=== PATIENT | male | born 1940 | race Caucasian/White ===

== ENCOUNTER → 2021-01-06 10:48 | Outpatient (BNVA) | payer MEDICARE, OTHER, SELFPAY | PROVIDERS: Visit Provider Urology | DX: N13.30 Unspecified hydronephrosis (principal); N40.1 Benign prostatic hyperplasia with lower urinary tract symptoms; C61 Malignant neoplasm of prostate | CPT/HCPCS: 51798; 81002; 99212 ==

== ENCOUNTER → 2022-01-07 10:07 | Outpatient (BNVA) | payer MEDICARE, OTHER, SELFPAY | PROVIDERS: PCP Family Medicine; Visit Provider Urology | DX: Z13.89 Encounter for screening for other disorder (principal) | CPT/HCPCS: Q3014 ==

== ENCOUNTER 2022-11-02 12:42 | Outpatient (REF) | payer MEDICARE, OTHER, SELFPAY ==
--- NOTE | ~2022-11-02 | US_ITS ---
EXAMINATION: US RETROPERITONEAL LIMITED (RENAL ONLY) CLINICAL INFORMATION: Unspecified hydronephrosis. COMPARISON: Nuclear medicine renal dynamic imaging study with Lasix 10/15/2019. TECHNIQUE: Real-time imaging of the kidneys. FINDINGS: RIGHT KIDNEY: 10.9 x 5.0 x 5.5 cm (SAG x AP x TRV). The kidney is normal in size, contour, and echogenicity. Renal cortical thickness is normal. No renal calculi or hydronephrosis. Multiple renal cysts. A midpole cyst measures 2.1 x 1.9 x 4.7 cm in lateral midpole cyst measures 3.1 x 2 0.7 to 2.0 cm and the medial midpole exophytic cyst measures 1.2 x 0.9 x 1.4 cm and is exophytic. 2 echogenic linear densities likely calcified vessels are noted. LEFT KIDNEY: 9.5 x 3.6 x 4.0 cm (SAG x AP x TRV). The kidney is normal in size, contour, and echogenicity. Renal cortical thickness is normal. No hydronephrosis. There are 2 anechoic cysts in the upper pole measuring 1.3 x 1.2 x 1.0 cm and lower pole exophytic cyst measures 1.5 x 0.9 x 1.0 cm. There is an echogenic nonobstructive midpole calculi measuring 0.6 x 0.5 x 0.5 cm. US/US renal BI IMPRESSION: Bilateral simple cysts no followup needed. There are exophytic cysts bilaterally. Nonobstructive echogenic calculi midpole left kidney.
== END 2022-11-02 12:43 | disposition home or self-care (01) ==
LOC: HO.US 12:42
PROVIDERS: PCP Family Medicine; Visit Provider Urology
DX: N13.30 Unspecified hydronephrosis (principal)
CPT/HCPCS: 76775

== ENCOUNTER → 2023-01-06 10:37 | Outpatient (BNVA) | payer MEDICARE, OTHER, SELFPAY | PROVIDERS: PCP Family Medicine; Visit Provider Urology | DX: N40.1 Benign prostatic hyperplasia with lower urinary tract symptoms (principal); C61 Malignant neoplasm of prostate | CPT/HCPCS: 99212 ==

== ENCOUNTER 2023-08-08 14:58 | Outpatient (AMB) | payer MEDICARE, OTHER, SELFPAY ==
--- NOTE | 2023-08-08 15:01 | A.OFFVIS_ITS ---
Intake Intake Visit Reasons: follow up Intake Note: Patient is present for Telephone follow up on recent imaging that has been done and sent to our office for Critical review Allergies No Known Allergies [No Known Allergies*] Allergy (Verified 01/06/23 11:14) HPI HPI Comments History of Present Illness Details Mr Ferrari is a very pleasant male. He is a patient of Dr Burnett. He is seen for the following urologic conditions. - nephrology Dr Awad. - hydronephrosis Telemedicine Evaluation 15 min Consultation DoxOsper Bassam Video attempted Denies history of hematuria New onset mass right renal pelvis on imaging recommend ureteroscopy with biopsy CT scan with 3 cm mass within right renal pelvis 08/18 7 hr spinal surgery Hydronephrosis/Hydroureter: Stable Creatinine. Hydronephrosis was diagnosed through routine imaging. - left side Anatomic imaging findings include 06/13 , US with mild , on the left, hydronephrosis - bilateral cyst. Functional imaging 07/14 , with diuretic renogram - L 25%:R 75% - delayed left 01/12 , with diuretic renogram - L 25%: R 75% - no delay 10/16 , with diuretic renogram - L 23% - no delay. Laboratory results 03/13 , Creatinine 1.3 10/15 , Creatinine 1.6 01/12 Creatinine 1.5 10/16 Cr 1.45. Discussion Continue with surveillance and intervention only for change in renal status. Prostate cancer: Low-grade brachytherapy 2009 PSA well controlled Minimal symptoms Good urination. Prostate cancer was diagnosed late [address] Muñoz.. Diagnosis was reached by needle biopsy, for elevated PSA, PSA at diagnosis 8.9, size at TRUS 45gm. The Nela grade is 3+3 = 6. TNM Classification of Malignant Tumours (TNM) T1c. The D'Ana (NCCN) risk category is Low Risk (PSA< 10, Gl < 7, T1c). Initial therapy included Primary treatment, Brachytherapy and bicalutamide , Additional treatment, Observation. Recent labs included a PSA (prostate-specific antigen) 03/11 -.2, 10/13 0.2, 04/12 0.2, 10/14 0.1, 04/14 0.1, 12/16 0.1, 12/17 <0.1, 12/18 <0.1 Therapeutic plan: Continue with surveillance [facility] Medical History Homocysteinemia Glaucoma HTN (hypertension) Hyperlipidemia Bladder spasm UPJ (ureteropelvic junction) obstruction Unspecified hydronephrosis Benign prostatic hyperplasia with lower urinary tract symptoms Prostate cancer Surgical History History of surgery Review of Systems Const All systems reviewed & are unremarkable except as noted in HPI and below Reports no additional complaints Resp Reports no additional complaints GI Reports no additional complaints Reports as per HPI Musc Reports no additional complaints Physical Exam Telemedicine evaluation Appropriate responses Regular breathing rate and rhythm HEENT Head: Yes normal to inspection Ears: hearing grossly normal bilaterally Eyes General: appearance normal, both eyes and all related structures Neck Neck: Yes normal visual inspection Chest Chest palpation & inspection: normal inspection of the chest Resp Effort & Inspection: normal respiratory effort and able to speak in complete sentences Assessment & Plan Assessment & Plan (1) Benign prostatic hyperplasia with lower urinary tract symptoms: Code(s): N40.1 - Benign prostatic hyperplasia with lower urinary tract symptoms (2) Renal pelvis transitional cell malignant neoplasm: Code(s): C65.9 - Malignant neoplasm of unspecified renal pelvis Plan Risks, benefits and alternatives to therapy were discussed. These include but are not limited to infection, bleeding, damage to local organs and tissues, need for further interventions. Anesthetic risks regarding cardiac arrhythmia, blood clots, and potential mortality were discussed. The patient understands the typical recovery time and the outpatient nature of the procedure. After consideration of these risks the patient gives full informed consent and they wish to move ahead with the procedure. Cystoscopy, bilateral retrograde, right ureteroscopy with biopsy Patient Instructions: Imaging studies, laboratory and physical exam results were discussed and reviewed in detail. No major barriers to patient understanding were identified. An opportunity to ask questions regarding the treatment plan was provided. All questions were answered. The patient expressed understanding and agreement with the above treatment plan. The patient is aware they should contact our office by phone for worsening of their current condition or the appearance of new urologic symptoms. Compliance is encouraged with any medications and followup testing that is ordered. It is a privilege to participate in the urologic care of your patient. If you have any questions or concerns regarding treatment for the above conditions, or other urologic issues, please do not hesitate to contact me. The office telephone contact is [phone]. This note is constructed using voice recognition software. While every effort has been made to ensure accuracy emergency room specialist errors may have been included. Yours sincerely, Dr Art Ruelas MD, [facility] - Urology Providers of Expert, Compassionate Care for the Genitourinary System Telehealth Telehealth Location of provider rendering services: practice address Location of patient: address on file Patient Identification confirmed using: Name, : Yes Telehealth method: video Patient verbally consented to treatment: Yes Patient verbally consented to billing insurance company: Yes Patient informed of any privacy concerns related to visit: Yes Coding Level of Care Code Tele Est Pt Level 4 (59581) Diagnoses Benign prostatic hyperplasia with lower urinary tract symptoms N40.1 Renal pelvis transitional cell malignant neoplasm C65.9
== END 2023-08-08 15:18 | disposition home or self-care (01) ==
LOC: HO.HUSH 14:58
PROVIDERS: PCP Family Medicine; Visit Provider Urology
DX: N40.1 Benign prostatic hyperplasia with lower urinary tract symptoms (principal); C65.9 Malignant neoplasm of unspecified renal pelvis
CPT/HCPCS: 99214

== ENCOUNTER → 2023-08-08 14:58 | Outpatient (BNVA) | payer MEDICARE, OTHER, SELFPAY | PROVIDERS: PCP Family Medicine; Visit Provider Urology ==

== ENCOUNTER 2023-08-14 10:11 | Day surgery (SDC) | payer MEDICARE, OTHER, SELFPAY ==
--- NOTE | 2023-08-11 10:30 | HO.ANESPROP2 ---
Documented by User: Nanci Avila NP 08/11/23 10:53 HPI - Anesthesia Eval Consult details Narrative: 82yo M for Bilateral Cystoscopy retrograde, Right Cystoscopy Ureteroscopy with renal biopsy Cardiac optimized Follows [place] [facility] for palpitations (holter 2021 showed frequent PACs with multiple runs of SVT, likely atrial tachy), htn, edema, hld. Last office visit 04/2023. All conditions stable without change in tx and f/u in 1 year Follows renal for CKD [facility]. Last office visit 06/2023. Stable >10years. 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 PMFSH Active Problems Active Problems: All Active Problems (Updated 08/08/23 @ 15:15 by Art Ruelas MD) Renal pelvis transitional cell malignant neoplasm (Acute) Unspecified hydronephrosis (Acute) Benign prostatic hyperplasia with lower urinary tract symptoms (Acute) Prostate cancer (Acute) Past Medical History Medical History SVT (supraventricular tachycardia) Homocysteinemia Glaucoma HTN (hypertension) Hyperlipidemia Bladder spasm UPJ (ureteropelvic junction) obstruction Unspecified hydronephrosis Benign prostatic hyperplasia with lower urinary tract symptoms Prostate cancer Surgical History Surgical History History of surgery Social History Social History Patient Tobacco Use Status: Never used Tobacco Are you DNR?: No Advance Directives: No Advance Directives Information Provided: Yes Nutrition Risks: No Nutritional Risk Meds Allergies Allergy/AdvReac Type Severity Reaction Status Date / Time No Known Allergies Allergy Verified 08/14/23 11:02 [No Known Allergies*] Home Medications Medication Instructions Recorded Confirmed Last Taken Type bisoprolol fumarate 5 mg tablet 7.5 mg PO DAILY 01/06/21 08/14/23 08/14/23 History ezetimibe 10 mg-simvastatin 80 mg tab PO 01/06/21 Unknown History tablet felodipine 2.5 mg tablet,extended 2.5 mg PO BEDTIME 01/06/21 08/14/23 Unknown History release 24 hr furosemide 20 mg tablet 20 mg PO DAILY 01/06/21 08/14/23 Unknown History levothyroxine 50 mcg tablet 50 mcg PO DAILY 01/06/21 08/14/23 08/14/23 History potassium chloride 20 mEq 20 meq PO DAILY 01/06/21 08/14/23 Unknown History tablet,extended release(part/cryst) tamsulosin 0.4 mg capsule 0.4 mg PO DAILY 01/06/21 08/14/23 Unknown History trazodone 100 mg tablet 100 mg PO BEDTIME 01/06/21 08/14/23 Unknown History Exam Pertinent Lab Results Pertinent Lab Results: Labs from outside facility CBC 06/20/23 WNL BMP 07/31/23 Lytes WNL, BUN/Creat elevated at 44/1.5 Narrative Narrative: ECHO 09/2021 -LV systolic funtion nml. EF 61% -RV systolic function is normal -LA mildly dilated -RA mildly dilated -Mitral leaflets are moderately thickened. Mild MR. -No previous for comparison. Assessment and Plan Assessment Anesthesia Assessment: Chart Reviewed Documented by User: Chandra Horta MD 08/14/23 15:44 [facility] Past Medical History Medical History SVT (supraventricular tachycardia) Homocysteinemia Glaucoma HTN (hypertension) Hyperlipidemia Bladder spasm UPJ (ureteropelvic junction) obstruction Unspecified hydronephrosis Benign prostatic hyperplasia with lower urinary tract symptoms Prostate cancer Family History Family history of problems with anesthesia: No Surgical History Surgical History History of surgery History of Problems with Anesthesia: No Social History Social History Patient Tobacco Use Status: Never used Tobacco Are you DNR?: No Advance Directives: No Advance Directives Information Provided: Yes Nutrition Risks: No Nutritional Risk Meds Allergies Allergy/AdvReac Type Severity Reaction Status Date / Time No Known Allergies Allergy Verified 08/14/23 11:02 [No Known Allergies*] Home Medications Medication Instructions Recorded Confirmed Last Taken Type bisoprolol fumarate 5 mg tablet 7.5 mg PO DAILY 01/06/21 08/14/23 08/14/23 History ezetimibe 10 mg-simvastatin 80 mg tab PO 01/06/21 Unknown History tablet felodipine 2.5 mg tablet,extended 2.5 mg PO BEDTIME 01/06/21 08/14/23 Unknown History release 24 hr furosemide 20 mg tablet 20 mg PO DAILY 01/06/21 08/14/23 Unknown History levothyroxine 50 mcg tablet 50 mcg PO DAILY 01/06/21 08/14/23 08/14/23 History potassium chloride 20 mEq 20 meq PO DAILY 01/06/21 08/14/23 Unknown History tablet,extended release(part/cryst) tamsulosin 0.4 mg capsule 0.4 mg PO DAILY 01/06/21 08/14/23 Unknown History trazodone 100 mg tablet 100 mg PO BEDTIME 01/06/21 08/14/23 Unknown History Exam Airway Mallampati Class: II (Hoarse voice.) TM Dist: <=3cm Neck ROM: Full Loose/Missing/Broken Teeth: No Heart: ok Lungs: ok Assessment and Plan Assessment Anesthesia Assessment: Anesthesia Plan Discussed Final Anesthetic Review Family History of Problems with Anesthesia: No History of Problems with Anesthesia: No NPO: Yes ASA Class: III Final Preanesthetic Review: No Changes in Pt Med Stat, Meds/Allgs Chart Reviewed, Consent Obtained/Reviewed and Anes Risks/Benef Reviewed Patient Risk: Intermediate Procedure Risk: Low Anesthetic Plan Anesthetic Plan: MAC: and Agree w/ Assess. and Plan Disposition: Standard PACU
--- NOTE | ~2023-08-14 | FL_ITS ---
EXAMINATION: XR FLUOROSCOPY WITH IMAGES CLINICAL INFORMATION: Cystoscopy, retrograde and ureteroscopy. Right-sided cystoscopy. COMPARISON: None available. TECHNIQUE: Fluoroscopy Supervised By: Dr. Art Ruelas. Fluoroscopy Time: 58.8 seconds. Cumulative Dose: 20.73 mGy. DAP: Not available on machine. Images: 4. FINDINGS: Fluoroscopy guidance for right retrograde exam and stent placement. FL/FL guidance in OR IMPRESSION: Fluoroscopy guidance for right retrograde exam and stent placement.
[2023-08-14 10:36] VITALS: BMI 26.1
[2023-08-14 11:01] VITALS: BP 141/62; PULSE 58; RESP 18; TEMP 36.6; O2SAT 97
[2023-08-14] MEDS: Lactated Ringers 1,000 ML 50 ML IVCONT (12:11)
--- NOTE | 2023-08-14 14:45 | PC.NURSE ---
Report given to Triston Weeks RN - she is aware of three spots on preop record that need to be signed.
--- NOTE | 2023-08-14 15:40 | MHC.SHP ---
Pre-Procedural Eval Section A Date of Service: 08/14/23 The patient is an INPATIENT: No Changes since office visit: No Cold of Flu in the past 2 weeks, No New Medical Problems, No Changes in Medication and No Patient answered all questions The History & Physical has been completed within 30 days and I have reviewed it.: Yes Section B Chief Complaint: Malignant neoplasm of unspecified renal pelvis Details of Present Illness: right renal pelvic mass Allergies: Allergies Allergy/AdvReac Type Severity Reaction Status Date / Time No Known Allergies Allergy Verified 08/14/23 11:02 [No Known Allergies*] Review of Systems Sugical H&P ROS: Negative: Constitution, Cardiovascular, Respiratory, Neurological, Psychiatric, Hem-Onc, Allergic/Immunologic, Gastrointestinal, Genitourinary, Musculoskeletal, Integumentary, Endocrine and Eyes/Ears/Nose/Throat Exam Surgical H&P Exam: Normal: HEENT, Normal: Heart, Normal: Lungs, Normal: Extremities, Normal: Abdomen, Normal: Skin and Normal: Neurological Plan Diagnosis/Plan: Unchanged (cysto, right retrorgades, ureteroscopy, biopsy) I have reviewed the history and physical and performed a pertinent physical examination on my patient. No changes have occurred unless specified. Time Spent With Patient Time: Total time managing care of this patient today ____ minutes.
[2023-08-14 16:32] VITALS: BP 109/49; PULSE 54; RESP 18; TEMP 36.8; O2SAT 96
[2023-08-14 16:37] VITALS: BP 116/39; PULSE 51; RESP 16; O2SAT 99
[2023-08-14 16:42] VITALS: BP 143/64; PULSE 52; RESP 16; O2SAT 99
[2023-08-14 16:47] VITALS: BP 148/61; PULSE 49; RESP 16; TEMP 36.8; O2SAT 99
[2023-08-14 17:02] VITALS: BP 156/67; PULSE 52; RESP 18; TEMP 36.6; O2SAT 99
--- NOTE | 2023-08-14 18:12 | W.PM.OPN ---
Operative Note Operative Note Date of Service: 08/14/23 Narrative: PreOperative Diagnosis: Imaging question of right renal pelvic mass Post Operative Diagnosis: No mass Found intrarenal Procedure: - cystoscopy, right retrograde - right dilatation of ureteric orifice under fluoroscopy - right ureteroscopy - right stent placement Surgeon: Dr Art Ruelas Anesthesia: General Indications for procedure: Imaging obtained from primary care. Question of right renal pelvis mass. Patient denies any history of hematuria. Procedure: After informed consent was verified patient was brought to the operating placed in supine position. Anesthesia was administered per protocol. Patient was placed in modified dorsal lithotomy position and prepped and draped in a sterile fashion. Safety pause time-out and side of surgery confirmed. Antibiotics confirmed. 22 Swedish cystoscope was inserted per urethra. Bladder was normal in its entirety. Both ureteric orifices were in normal position. The right ureteric orifice was cannulated and a retrograde examination was performed. No filling defects seen within right renal pelvis. Prostate seen with radioactive seeds A Sensor guidewire was placed up to the level of the renal pelvis under fluoroscopy. The rigid cystoscope was removed and the Jermaine dilator was used under fluoroscopy to dilate the ureteric orifice. The digital flexible ureteral scope was placed over the wire into the renal pelvis. The renal pelvis and calyces were examined in their entirety. No evidence found of filling defect. No evidence found of renal pelvic mass. At the completion of the stone procedure a Sensor wire was placed back into the renal pelvis. The flexible ureteroscope was slowly withdrawn. There was seen to be some grade 2 mucosal damage from the initial dilatation. A decision was made to place stent. The rigid cystoscope was backloaded over the wire and advanced into the bladder. A 6 Swedish by 26 cm double-J stent was placed into the renal pelvis and bladder under a combination of fluoroscopy and direct visualization. The bladder was emptied. The patient tolerated the procedure well and was extubated in the operating room, and transferred in stable condition to the recovery area. Pathology: No mass seen Drains: Right-sided stent
== END 2023-08-14 17:05 | disposition home or self-care (01) ==
PROVIDERS: PCP Family Medicine; Visit Provider Urology
PROC: (CPT 52351; principal; 2023-08-14 12:40)
PROC: 0TJB8ZZ Inspection of Bladder, Via Natural or Artificial Opening Endoscopic (ICD-10-PCS; CPT 52000; 2023-08-14 12:40)
DX: N40.1 Benign prostatic hyperplasia with lower urinary tract symptoms (principal); R97.20 Elevated prostate specific antigen [PSA]; R79.83 Abnormal findings of blood amino-acid level; I10 Essential (primary) hypertension; N13.30 Unspecified hydronephrosis; C61 Malignant neoplasm of prostate; N32.89 Other specified disorders of bladder; H40.9 Unspecified glaucoma; E78.5 Hyperlipidemia, unspecified
CPT/HCPCS: 52351; 52332; C2617; J1956; J2704; J3010; Q9967

== ENCOUNTER → 2023-08-14 10:11 | Outpatient (BNV) | payer MEDICARE, OTHER, SELFPAY | PROVIDERS: PCP Family Medicine; Visit Provider Urology | DX: N28.89 Other specified disorders of kidney and ureter (principal) | CPT/HCPCS: 52332; 74420 ==

== ENCOUNTER 2023-08-31 12:44 | Outpatient (AMB) | payer MEDICARE, OTHER, SELFPAY ==
--- NOTE | 2023-08-31 13:05 | A.OFFVIS_ITS ---
Intake Intake Visit Reasons: Stent removal/Renal bx results Intake Note: Patient presents today for stent removal/renal biopsy results Urology Medications: tamsulosin Blood Thinner: none Marketing Analytics Lead Required: No Accompanied by: Self / Same As Patient Allergies No Known Allergies [No Known Allergies*] Allergy (Verified 08/31/23 20:08) Medication List - Last Reconciled 08/31/23 by Ruby Tejada [facility]- bisoprolol fumarate 7.5 mg PO DAILY ezetimibe-simvastatin 10-80 mg tabs PO felodipine ER 2.5 mg PO BEDTIME furosemide 20 mg PO DAILY levothyroxine 50 mcg PO DAILY potassium chloride ER 20 mEq PO DAILY tamsulosin 0.4 mg PO DAILY trazodone 100 mg PO BEDTIME HPI HPI Comments History of Present Illness Details Dontae is a very pleasant 82-year-old male patient of Dr. Burnett. He has a past medical history of SVT, glaucoma, hypertension, hyperlipidemia, BPH with lower urinary tract symptoms and prostate cancer. He presents to the office today for a cystoscopy with right-sided stent removal. Of note, patient underwent surgical procedure with Dr. Ruelas on 08/14/2023 for question of right renal pelvic mass on imaging with PCP. Cystoscopy right retrograde right dilatation of ureteric orifice under fluoroscopy, right ureteroscopy, and right stent placement was performed and no mass was seen. These results were reviewed with the patient today. In office cystoscopy was performed in the right-sided ureteral stent was removed without difficulty. Discussed near future follow-up imaging for further assessment evaluation. He otherwise denies any bothersome urinary issues or concerns. He denies urinary urgency, urinary frequency, incontinence, nocturia, hematuria, dysuria, foul sme for Nephrology. lling urine, changes to urinary stream, flank pain, fever, and or chills. He is happy with his current voiding paramete on flomax. He follows with Dr. Awad REVIEW OF CHART: CT scan with 3 cm mass within right renal pelvis 08/18 7 hr spinal surgery Hydronephrosis/Hydroureter: Stable Creatinine. Hydronephrosis was diagnosed through routine imaging. - left side Anatomic imaging findings include 06/13 , US with mild , on the left, hydronephrosis - bilateral cyst. Functional imaging 07/14 , with diuretic renogram - L 25%:R 75% - delayed left 01/12 , with diuretic renogram - L 25%: R 75% - no delay 10/16 , with diuretic renogram - L 23% - no delay. Laboratory results 03/13 , Creatinine 1.3 10/15 , Creatinine 1.6 01/12 Creatinine 1.5 10/16 Cr 1.45. Discussion Continue with surveillance and intervention only for change in renal status. Prostate cancer: Low-grade brachytherapy 2009 PSA well controlled Minimal symptoms Good urination. Prostate cancer was diagnosed late [address] Muñoz.. Diagnosis was reached by needle biopsy, for elevated PSA, PSA at diagnosis 8.9, size at TRUS 45gm. The Nela grade is 3+3 = 6. TNM Classification of Malignant Tumours (TNM) T1c. The D'Ana (NCCN) risk category is Low Risk (PSA< 10, Gl < 7, T1c). Initial therapy included Primary treatment, Brachytherapy and bicalutamide , Additional treatment, Observation. Recent labs included a PSA (prostate-specific antigen) 03/11 -.2, 10/13 0.2, 04/12 0.2, 10/14 0.1, 04/14 0.1, 12/16 0.1, 12/17 <0.1, 12/18 <0.1 Therapeutic plan: Continue with surveillance PSA and imaging for monitoring [facility] Medical History SVT (supraventricular tachycardia) Homocysteinemia Glaucoma HTN (hypertension) Hyperlipidemia Bladder spasm UPJ (ureteropelvic junction) obstruction Unspecified hydronephrosis Benign prostatic hyperplasia with lower urinary tract symptoms Prostate cancer Surgical History History of surgery Social History Patient Tobacco Use Status: Never used Tobacco Review of Systems Const Reports as per HPI Eyes Reports no additional complaints ENT Reports no additional complaints Card Reports as per HPI Resp Reports no additional complaints GI Reports as per HPI Reports as per HPI Musc Reports no additional complaints Neuro Reports no additional complaints Psych Reports no additional complaints Endo Reports no additional complaints Gustabo/Lymph Reports no additional complaints Aller/Immun Reports no additional complaints Physical Exam Const General: cooperative, healthy appearing, comfortable, no acute distress, well developed, alert and awake Orientation/consciousness: patient oriented x3 Limitations: no limitations HEENT Head: Yes normal to inspection, Yes normocephalic and Yes atraumatic Ears: hearing grossly normal bilaterally Eyes General: appearance normal, both eyes and all related structures Neck Neck: Yes normal visual inspection and Yes trachea midline Chest Chest palpation & inspection: normal inspection of the chest Resp Effort & Inspection: normal respiratory effort and able to speak in complete sentences Cardio Rate: regular rate GI Inspection: Yes normal to inspection General: Yes no CVA tenderness Male General Exam: Yes normal external exam Penis: normal penis and circumcised Meatus: meatus normal Back/Spine/Pelvis Back: no CVA tenderness Skin General skin exam: no rashes or lesions noted Neuro General: patient oriented x3 Extrem General: Yes normal to inspection Psych Appearance: grossly normal and well kempt Mental Status: mental status grossly normal Speech and movement: Normal speech and movement present and Clear speech present Affect: normal affect Attitude: cooperative Thought process: Normal thought process present Thought content: Normal thought content present Office Procedures Cystoscopy Consent Discussed risk and benefit or proposed procedure with the patient. Information consent for procedure given to the patient. Discussed technical aspects, risks, benefits and alternatives in full. Addressed all of the patient's questions and concerns regarding the procedure. The patient demonstrated knowledge and understanding. They wish to proceed with this procedure. Preparation The patient was prepped in the usual manner. A airline transport pilot was present and in the room. Genitalia was prepped with betadine solution in a sterile manner. Lidocaine Jelly 2% was placed into the urethra and 16Fr flexible Olympus cystoscope was inserted into the meatus after adequate lubrication. Procedure A well lubricated 16 Citizen [place] cystoscope was placed No abnormality noted of urethra during placement Indwelling stent seen within bladder emerging from right ureteric orifices The stent was grasped with a 3 prong grasper and removed without difficulty The patient tolerated procedure well. [id number] with stent removal DISPOSABLE SCOPE URO-G FLEXIBLE SCOPE Procedure code (CPT) selection complete Office Meds lidocaine HCl 2 % mucosal jelly in applicator Performing Provider: Art Ruelas MD [facility] Administered by: Destiny Berger RN on 08/31/23 13:39 Dose Route Admin Location Dispensed Lot Number Expiration Date [facility] Sheet [employer] Supervisor 10 mL intra-urethral 10 mL nitrofurantoin monohydrate/macrocrystals 100 mg capsule Performing Provider: Art Ruelas MD Performing Location: [facility] Administered by: Destiny Berger RN on 08/31/23 13:39 Dose Route Admin Location Dispensed Lot Number Expiration Date NDC [employer]visor 100 mg PO 1 cap naproxen 500 mg tablet Performing Provider: Art Ruelas MD Performing Location: [facility] Administered by: Destiny Berger RN on 08/31/23 13:39 Dose Route Admin Location Dispensed Lot Number Expiration Date NDC [employer] 500 mg PO 1 tab Results AMB Urinalysis, Automated UA Leukoctes 70 Chemo/uL Last Edit by 4Techyce Nini on 08/31/23 13:40 UA Nitrite Negative Last Edit by Brandyce Bre on 08/31/23 13:40 UA Urobilinogen 0.2 mg/dL Last Edit by Brandyce Bre on 08/31/23 13:40 UA Protein 100 mg/dL Last Edit by BrandATRP Solutionse Nini on 08/31/23 13:40 UA pH 7.0 Last Edit by Brandyce Bre on 08/31/23 13:40 UA Blood 200 Andrea/uL Last Edit by Brandyce Bress on 08/31/23 13:40 UA Specific Sargeant 1.010 Last Edit by Brandyce Bress on 08/31/23 13:40 UA Ketone Negative Last Edit by Brandyce Bre on 08/31/23 13:40 UA Bilirubin 0 mg/dL Last Edit by Brandyce Bre on 08/31/23 13:40 UA Glucose 0 mg/dL Last Edit by Brandyce Bress on 08/31/23 13:40 Results Reviewed Results Reviewed: Laboratory Last Values Urine pH (Auto) 7.0 08/31/23 13:08 Specific Sargeant (Auto) 1.010 08/31/23 13:08 Urine Protein (Auto) 100 mg/dL 08/31/23 13:08 Glucose (UA)(Auto) 0 mg/dL 08/31/23 13:08 Urine Ketones (Auto) Negative 08/31/23 13:08 Urine Blood (Auto) 200 Andrea/uL 08/31/23 13:08 Urine Nitrite (Auto) Negative 08/31/23 13:08 Urine Bilirubin (Auto) 0 mg/dL 08/31/23 13:08 Urine Urobilinogen (Auto) 0.2 mg/dL 08/31/23 13:08 Leukocyte Esterase (Auto) 70 Chemo/uL 08/31/23 13:08 Assessment & Plan Assessment & Plan (1) Unspecified hydronephrosis: Code(s): N13.30 - Unspecified hydronephrosis (2) Benign prostatic hyperplasia with lower urinary tract symptoms: Code(s): N40.1 - Benign prostatic hyperplasia with lower urinary tract symptoms (3) Prostate cancer: Code(s): C61 - Malignant neoplasm of prostate (4) Malignant neoplasm of unspecified renal pelvis: Code(s): C65.9 - Malignant neoplasm of unspecified renal pelvis Plan In office urinalysis results reviewed with the patient today; will send for urine cytology. In office cystoscopy was performed and right ureteral stent was removed without difficulty; as noted above. Discussed findings from surgical procedure at length. Patient denies any bothersome urinary issues or concerns at this time. Patient reports be happy with current voiding parameters on 0.4 mg of Flomax will continue. Discussed continuing with scheduled follow-up with Dr. Ruelas in December with PSA and MRI to be completed prior. Will obtain MRI in 3-4 months for further assessment evaluation. Discussed having PSA drawn prior to appointment. Keep scheduled follow-up with Dr. Ruelas as discussed with imaging and labs to be completed prior; or sooner with any issues, concerns, and or questions. Orders: Orders MR abdomen wo/w con 3 Months C65.9 - Malignant neoplasm of unspecified renal pelvis MAIKEL Gates AMB Urinalysis Automated Today Z13.9 - Encounter for screening, unspecified CHAVA Gates-BC AMB Cystoscopy Today N13.30 - Unspecified hydronephrosis Art Ruelas MD Urine Cytology Today C61 - Malignant neoplasm of prostate MAIKEL Gates Patient Instructions: The patient had an opportunity to ask questions regarding the treatment plan. All questions were answered. Physical exam, labs, and imaging were discussed and reviewed in detail. As well as risks, benefits, and discussion of treatment choices. No major barriers to understanding were identified. The patient expressed understanding and agreement with the above treatment plan. The patient was made aware they should contact our office by phone for worsening of their current condition, the appearance of new symptoms, or with any questions or concerns. Compliance is encouraged with any medications and follow up testing that is ordered. It is a privilege to be allowed the opportunity to participate in? your urological care.? Again, if you have any questions or concerns If you have any questions or concerns please do not hesitate to contact me. The office is [phone]. This note is constructed using voice recognition software. While every effort has been made to ensure accuracy cupola repairer errors may have been included. Yours sincerely, HIPOLITO Gates Coding Level of Care Code Est Pt Level 3 (11299) Diagnoses Unspecified hydronephrosis N13.30 Benign prostatic hyperplasia with lower urinary tract symptoms N40.1 Prostate cancer C61 Malignant neoplasm of unspecified renal pelvis C65.9 CPT Codes Cystoscopy - CPT: 86358-[id number] with stent removal ([id number])
== END 2023-08-31 14:05 | disposition home or self-care (01) ==
PROVIDERS: PCP Family Medicine; Visit Provider Urology
DX: N13.30 Unspecified hydronephrosis (principal); Z13.9 Encounter for screening, unspecified; Z96.0 Presence of urogenital implants
CPT/HCPCS: 52310; 99213

== ENCOUNTER 2023-08-31 12:44 | Outpatient (REF) | payer MEDICARE, OTHER, SELFPAY | END 2023-08-31 12:45 | disposition home or self-care (01) | LOC: HO.LNP 12:44 | PROVIDERS: PCP Family Medicine; Visit Provider Urology | DX: C61 Malignant neoplasm of prostate (principal); C65.9 Malignant neoplasm of unspecified renal pelvis; N40.1 Benign prostatic hyperplasia with lower urinary tract symptoms; N13.8 Other obstructive and reflux uropathy; N13.30 Unspecified hydronephrosis; Z46.6 Encounter for fitting and adjustment of urinary device | CPT/HCPCS: 52310; 81003; 88112; 99212 ==

== ENCOUNTER 2023-11-30 10:11 | Outpatient (REF) | payer MEDICARE, OTHER, SELFPAY ==
--- NOTE | ~2023-11-30 | MR_ITS ---
EXAMINATION: MR ABDOMEN WITHOUT AND WITH CONTRAST CLINICAL INFORMATION: Renal lesion. COMPARISON: Renal ultrasound 11/02/2022 TECHNIQUE: MR abdomen was performed without and with use of 6 mL intravenous Gadavist gadolinium contrast. Postcontrast images are performed in multiphase dynamic sequences. Imaging was performed in 3 planes. FINDINGS: LUNG BASES: The visualized lung bases are unremarkable. LIVER, GALLBLADDER, AND BILIARY TREE: Hepatic steatosis. No focal hepatic lesion or biliary ductal dilatation is present. The gallbladder is unremarkable with no evidence of gallbladder wall thickening, or obvious pericholecystic inflammatory changes. PANCREAS: Multiple T2 hyperintense lesions are seen distributed throughout the pancreas measuring up to 9 mm. No dilatation of the main pancreatic duct. No peripancreatic stranding. No abnormal enhancement. SPLEEN: Not enlarged. ADRENAL GLANDS: No adrenal mass. KIDNEYS AND URETERS: The left kidney is asymmetrically smaller with anterior cortical scarring. There is urothelial thickening of the left renal pelvis/proximal ureter. There is a solid enhancing mass expanding the right renal pelvis measuring approximately 4.0 x 2.7 x 3.1 cm. No definite vascular invasion. No right hydronephrosis. Bilateral renal cysts for which no further imaging follow-up is needed. GASTROINTESTINAL TRACT: Imaged loops of small and large bowel are not obstructed. Diverticular disease of the colon. ABDOMINAL WALL: No significant hernia is appreciated. LYMPH NODES: Few prominent retroperitoneal lymph nodes. Left para-aortic lymph node measures 1.0 x 1.5 cm. VASCULAR: Normal caliber abdominal aorta. MR/MR abdomen wo/w con IMPRESSION: Solid enhancing mass expanding the right renal pelvis measuring approximately 4.0 x 2.7 x 3.1 cm. No definite vascular invasion. No right hydronephrosis. Enlarged retroperitoneal lymph nodes.
[2023-11-30] MEDS: gadobutroL 7.5 ML VIAL IVPUSH (12:32)
== END 2023-11-30 10:12 | disposition home or self-care (01) ==
LOC: HO.MRI 10:11
PROVIDERS: PCP Family Medicine; Visit Provider Nurse Practitioner Family
DX: C65.9 Malignant neoplasm of unspecified renal pelvis (principal)
CPT/HCPCS: 74183; A9585

== ENCOUNTER 2024-01-09 10:21 | Outpatient (AMB) | payer MEDICARE, OTHER, SELFPAY ==
--- NOTE | 2024-01-09 10:22 | MHC.OFFVIS ---
Intake Visit Reasons: 1y psa(set) Intake Note: Patient is Present for Telephone Follow Up For Urology Med: Tamsulosin Antibiotic Allergy:None Blood Thinner: None Allergies No Known Allergies [No Known Allergies*] Allergy (Verified 01/09/24 10:22) HPI Comments Details: Dontae is a very pleasant male. He is a patient of Dr. Burnett. He is seen for the following urologic conditions - lower urinary tract symptoms - prostate cancer - right renal pelvic mass Telemedicine Evaluation 15 min Consultation Vendalize Bassam Video attempted Continued evaluation of right renal pelvic mass MRI shows increase in size of mass Underwent ureteroscopy in July 2023 with negative findings Cytology from August is negative Has never seen any blood in the urine Would suggest CT urogram which is more specific for mass in the right renal pelvis versus MRI Given prior negative ureteroscopy will proceed with CT-guided biopsy - uncommon tumors must be considered such as smooth muscle within the renal pelvis REVIEW OF CHART: 01/18 MRI 4.5 cm mass within the right renal pelvis 09/20 CT scan with 3 cm mass within right renal pelvis 08/18 7 hr spinal surgery Right renal pelvis mass Present on imaging Negative ureteroscopy Negative cytology, no blood in urine Hydronephrosis/Hydroureter: Stable Creatinine. Hydronephrosis was diagnosed through routine imaging. - left side Anatomic imaging findings include 06/13 , US with mild , on the left, hydronephrosis - bilateral cyst. Functional imaging 07/14 , with diuretic renogram - L 25%:R 75% - delayed left 01/12 , with diuretic renogram - L 25%: R 75% - no delay 10/16 , with diuretic renogram - L 23% - no delay. Laboratory results 03/13 , Creatinine 1.3 10/15 , Creatinine 1.6 01/12 Creatinine 1.5 10/16 Cr 1.45. Discussion Continue with surveillance and intervention only for change in renal status. Prostate cancer: Low-grade brachytherapy 2009 PSA well controlled Minimal symptoms Good urination. Prostate cancer was diagnosed late [address] Muñoz.. Diagnosis was reached by needle biopsy, for elevated PSA, PSA at diagnosis 8.9, size at TRUS 45gm. The Nela grade is 3+3 = 6. TNM Classification of Malignant Tumours (TNM) T1c. The D'Ana (NCCN) risk category is Low Risk (PSA< 10, Gl < 7, T1c). Initial therapy included Primary treatment, Brachytherapy and bicalutamide , Additional treatment, Observation. Recent labs included a PSA (prostate-specific antigen) 03/11 -.2, 10/13 0.2, 04/12 0.2, 10/14 0.1, 04/14 0.1, 12/16 0.1, 12/17 <0.1, 12/18 <0.1, 12/19 <0.1 Therapeutic plan: Continue with surveillance PSA and imaging for monitoring [facility] Medical History SVT (supraventricular tachycardia) Homocysteinemia Glaucoma HTN (hypertension) Hyperlipidemia Bladder spasm UPJ (ureteropelvic junction) obstruction Unspecified hydronephrosis Benign prostatic hyperplasia with lower urinary tract symptoms Prostate cancer Surgical History History of surgery Social History Patient Tobacco Use Status: Never used Tobacco Review of Systems Const All systems reviewed & are unremarkable except as noted in HPI and below Reports no additional complaints Resp Reports no additional complaints GI Reports no additional complaints Reports as per HPI Musc Reports no additional complaints Physical Exam Telemedicine evaluation Appropriate responses Regular breathing rate and rhythm HEENT Head: Yes normal to inspection Ears: hearing grossly normal bilaterally Eyes General: appearance normal, both eyes and all related structures Neck Neck: Yes normal visual inspection Chest Chest palpation & inspection: normal inspection of the chest Resp Effort & Inspection: normal respiratory effort and able to speak in complete sentences Telehealth Telehealth Location of provider rendering services: practice address Location of patient: address on file Patient Identification confirmed using: Name, : Yes Telehealth method: video Patient verbally consented to treatment: Yes Patient verbally consented to billing insurance company: Yes Patient informed of any privacy concerns related to visit: Yes Assessment & Plan Assessment & Plan (1) Benign prostatic hyperplasia with lower urinary tract symptoms: Code(s): N40.1 - Benign prostatic hyperplasia with lower urinary tract symptoms Category: Medical (2) Prostate cancer: Code(s): C61 - Malignant neoplasm of prostate Category: Medical (3) Malignant neoplasm of unspecified renal pelvis: Code(s): C65.9 - Malignant neoplasm of unspecified renal pelvis Category: Medical Plan CT urogram, possible CT biopsy Orders: Orders Blood Urea Nitrogen Today C65.9 - Malignant neoplasm of unspecified renal pelvis Creatinine Today C65.9 - Malignant neoplasm of unspecified renal pelvis CT urogram Today C65.9 - Malignant neoplasm of unspecified renal pelvis, R31.0 - Gross hematuria Patient Instructions: Imaging studies, laboratory and physical exam results were discussed and reviewed in detail. No major barriers to patient understanding were identified. An opportunity to ask questions regarding the treatment plan was provided. All questions were answered. The patient expressed understanding and agreement with the above treatment plan. The patient is aware they should contact our office by phone for worsening of their current condition or the appearance of new urologic symptoms. Compliance is encouraged with any medications and followup testing that is ordered. It is a privilege to participate in the urologic care of your patient. If you have any questions or concerns regarding treatment for the above conditions, or other urologic issues, please do not hesitate to contact me. The office telephone contact is [phone]. This note is constructed using voice recognition software. While every effort has been made to ensure accuracy veterinarian laboratory animal care errors may have been included. Yours sincerely, Dr Art Ruelas MD, [facility] - Urology Providers of Expert, Compassionate Care for the Genitourinary System Coding Level of Care Code Tele Est Pt Level 4 (94521) Complex EM visit Add On G2211 Diagnoses Benign prostatic hyperplasia with lower urinary tract symptoms N40.1 Prostate cancer C61 Malignant neoplasm of unspecified renal pelvis C65.9
== END 2024-01-09 10:45 | disposition home or self-care (01) ==
LOC: HO.HUSH 10:21
PROVIDERS: PCP Family Medicine; Visit Provider Urology
DX: N40.1 Benign prostatic hyperplasia with lower urinary tract symptoms (principal); C61 Malignant neoplasm of prostate; C65.9 Malignant neoplasm of unspecified renal pelvis
CPT/HCPCS: 99214; G2211

== ENCOUNTER → 2024-01-09 10:21 | Outpatient (BNVA) | payer MEDICARE, OTHER, SELFPAY | PROVIDERS: PCP Family Medicine; Visit Provider Urology ==

== ENCOUNTER 2024-01-23 14:28 | Outpatient (REF) | payer MEDICARE, OTHER, SELFPAY ==
--- NOTE | ~2024-01-23 | CT_ITS ---
EXAMINATION: CT ABDOMEN AND PELVIS WITHOUT AND WITH CONTRAST CLINICAL INFORMATION: Gross hematuria COMPARISON: MRI of the abdomen dated 11/30/2023 TECHNIQUE: Noncontrast CT of the abdomen and pelvis is performed followed by split bolus contrast-enhanced images using 85 mL Omnipaque 350 contrast.? Postcontrast imaging is performed during the combined nephrogram and excretion phase. Sagittal and coronal reformatted images were obtained on the technologist's workstation for both the precontrast and postcontrast phases. This CT examination was performed using dose optimization techniques as appropriate, variously including the following: *Automated exposure control *Adjustment of mA and/or kV according to patient size (this includes techniques or standardized protocols for targeted exams where dose is matched to indication/reason for exam; i.e. extremities or head) *Use of iterative reconstruction technique DLP: 613 mGy-cm FINDINGS: LUNG BASES: The visualized lung bases are unremarkable. LIVER, GALLBLADDER, AND BILIARY TREE: The liver is normal in size, shape, and attenuation. No focal hepatic lesion or biliary ductal dilatation is present. There may be a tiny 1 mm gallstone in the dependent portion of the gallbladder. No adjacent inflammatory change. PANCREAS: Minor calcifications are seen surrounding the pancreatic head but no suspicious mass. A few punctate calcifications related to the pancreatic body and these may be the sequela of an old inflammatory process. Currently, no evidence for an acute inflammation or mass or perinephric pancreatic collection. SPLEEN: Unremarkable. ADRENAL GLANDS: Unremarkable. KIDNEYS AND URETERS: Abnormal. There is a soft tissue mass seen related to the right renal pelvis, at 19 x 29 x 35 mm. This was noted on the prior MRI of 11/30/2023. The right renal pelvis and proximal right ureter do not appear obstructed or involved although this soft tissue mass does appear to originate from the right renal pelvis. A uroepithelial tumor cannot be excluded here and I would recommend a retrograde study. . No nephrolithiasis. There is a right parapelvic cyst noted measuring up to 24 mm, an associated somewhat adjacent cyst in the mid right kidney at 19 mm and an exophytic cyst off the mid right kidney at 21 mm. These do not appear suspicious. They're nonobstructive. No further workup needed. Note is made of a tiny exophytic cyst off the anterior mid left kidney at 7 mm and a possible small exophytic cyst off the mid left kidney at 5 mm. No further workup needed with regards to the cysts. BLADDER: Slight irregularity to the undersurface of the bladder likely due to the presence of a prominent prostate. GASTROINTESTINAL TRACT: No bowel obstruction or right or left lower quadrant inflammatory change. The vermiform appendix is not clearly seen. There is a small hiatal hernia. ABDOMINAL WALL: No significant hernia is appreciated. LYMPH NODES: Left para-aortic nodes are observed, measuring up to 9.1 mm transverse short axis. There are nodes seen in the interaortocaval space measuring up to 8 mm. VASCULAR: Aorta and iliac bifurcation is heavily calcified. PELVIC VISCERA: Surgical clips are seen in the prostate bed. There is slight soft tissue prominence in the right periprosthetic fat planes which could be correlated with digital rectal examination. The seminal vesicles appear symmetric. OSSEUS STRUCTURES: There is multilevel compression fracture deformities throughout the lumbar spine with postsurgical changes at the L4-L5 level. The fractures do not appear acute. There is productive sclerotic change in the right aspect of the symphysis pubis. A bone scan would be helpful given the patient's history of prostate carcinoma. CT/CT urogram IMPRESSION: Abnormal mass related to the right renal pelvis as noted on the recent MRI. No hydronephrosis. Prominent retroperitoneal nodes are again observed.
[2024-01-23] MEDS: iohexoL 350 MG/ML 100 ML INFUS..BTL IV (15:29)
[2024-01-25 07:14] LABS: Creatinine POC 1.4 mg/dL (0.5-1.4); GFR POC 50
== END 2024-01-23 14:29 | disposition home or self-care (01) ==
LOC: HO.CT 14:28
PROVIDERS: PCP Family Medicine; Visit Provider Urology
DX: R31.0 Gross hematuria (principal); C65.9 Malignant neoplasm of unspecified renal pelvis
CPT/HCPCS: 74178; 82565; Q9967

== ENCOUNTER 2024-02-09 10:53 | Outpatient (AMB) | payer MEDICARE, OTHER, SELFPAY ==
--- NOTE | 2024-02-09 10:55 | A.OFFVIS_ITS ---
Intake Visit Reasons: 1m/CT/labs(set) Intake Note: Patient is present for Tele follow up Urogram CT Absorption Plant Operator Required: No Allergies No Known Allergies [No Known Allergies*] Allergy (Verified 02/09/24 10:55) HPI Comments Details: Dontae is a very pleasant male. He is a patient of Dr. Burnett. He is seen for the following urologic conditions - lower urinary tract symptoms - prostate cancer - right renal pelvic mass Telemedicine Evaluation 15 min Consultation [employer] Video attempted Continued evaluation of right renal pelvic mass MRI shows increase in size of mass Underwent ureteroscopy in July 2023 with negative findings Cytology from August is negative Has never seen any blood in the urine Given prior negative ureteroscopy will proceed with CT-guided biopsy - uncommon tumors must be considered such as smooth muscle within the renal pelvis REVIEW OF CHART: 01/18 MRI 4.5 cm mass within the right renal pelvis 09/20 CT scan with 3 cm mass within right renal pelvis 08/18 7 hr spinal surgery Right renal pelvis mass Present on imaging Negative ureteroscopy Negative cytology, no blood in urine Hydronephrosis/Hydroureter: Stable Creatinine. Hydronephrosis was diagnosed through routine imaging. - left side Anatomic imaging findings include 06/13 , US with mild , on the left, hydronephrosis - bilateral cyst. Functional imaging 07/14 , with diuretic renogram - L 25%:R 75% - delayed left 01/12 , with diuretic renogram - L 25%: R 75% - no delay 10/16 , with diuretic renogram - L 23% - no delay. Laboratory results 03/13 , Creatinine 1.3 10/15 , Creatinine 1.6 01/12 Creatinine 1.5 10/16 Cr 1.45. Discussion Continue with surveillance and intervention only for change in renal status. Prostate cancer: Low-grade brachytherapy 2009 PSA well controlled Minimal symptoms Good urination. Prostate cancer was diagnosed late [address] Muñoz.. Diagnosis was reached by needle biopsy, for elevated PSA, PSA at diagnosis 8.9, size at TRUS 45gm. The [place] grade is 3+3 = 6. TNM Classification of Malignant Tumours (TNM) T1c. The D'Aan (NCCN) risk category is Low Risk (PSA< 10, Gl < 7, T1c). Initial therapy included Primary treatment, Brachytherapy and bicalutamide , Additional treatment, Observation. Recent labs included a PSA (prostate-specific antigen) 03/11 -.2, 10/13 0.2, 04/12 0.2, 10/14 0.1, 04/14 0.1, 12/16 0.1, 12/17 <0.1, 12/18 <0.1, 12/19 <0.1 Therapeutic plan: Continue with surveillance PSA and imaging for monitoring [facility] Medical History SVT (supraventricular tachycardia) Homocysteinemia Glaucoma HTN (hypertension) Hyperlipidemia Bladder spasm UPJ (ureteropelvic junction) obstruction Unspecified hydronephrosis Benign prostatic hyperplasia with lower urinary tract symptoms Prostate cancer Surgical History History of surgery Social History Patient Tobacco Use Status: Never used Tobacco Review of Systems Const All systems reviewed & are unremarkable except as noted in HPI and below Reports no additional complaints Resp Reports no additional complaints GI Reports no additional complaints Reports as per HPI Musc Reports no additional complaints Physical Exam Telemedicine evaluation Appropriate responses Regular breathing rate and rhythm HEENT Head: Yes normal to inspection Ears: hearing grossly normal bilaterally Eyes General: appearance normal, both eyes and all related structures Neck Neck: Yes normal visual inspection Chest Chest palpation & inspection: normal inspection of the chest Resp Effort & Inspection: normal respiratory effort and able to speak in complete sentences Telehealth Telehealth Location of provider rendering services: practice address Location of patient: address on file Patient Identification confirmed using: Name, : Yes Telehealth method: video Patient verbally consented to treatment: Yes Patient verbally consented to billing insurance company: Yes Patient informed of any privacy concerns related to visit: Yes Assessment & Plan Assessment & Plan (1) Malignant neoplasm of unspecified renal pelvis: Code(s): C65.9 - Malignant neoplasm of unspecified renal pelvis Category: Medical Plan Risks, benefits and alternatives to therapy were discussed. These include but are not limited to infection, bleeding, damage to local organs and tissues, need for further interventions. Anesthetic risks regarding cardiac arrhythmia, blood clots, and potential mortality were discussed. The patient understands the typical recovery time and the outpatient nature of the procedure. After consideration of these risks the patient gives full informed consent and they wish to move ahead with the procedure. CT-guided right Renal parapelvic mass Orders: Orders CT biopsy renal RT 02/09/24 C65.9 - Malignant neoplasm of unspecified renal pelvis Patient Instructions: Imaging studies, laboratory and physical exam results were discussed and reviewed in detail. No major barriers to patient understanding were identified. An opportunity to ask questions regarding the treatment plan was provided. All questions were answered. The patient expressed understanding and agreement with the above treatment plan. The patient is aware they should contact our office by phone for worsening of their current condition or the appearance of new urologic symptoms. Compliance is encouraged with any medications and followup testing that is ordered. It is a privilege to participate in the urologic care of your patient. If you have any questions or concerns regarding treatment for the above conditions, or other urologic issues, please do not hesitate to contact me. The office telephone contact is [phone]. This note is constructed using voice recognition software. While every effort has been made to ensure accuracy foreman or supervisor and operator errors may have been included. Yours sincerely, Dr Art Ruelas MD, [facility] - Urology Providers of Expert, Compassionate Care for the Genitourinary System Coding Level of Care Code Tele Est Pt Level 4 (18604) Diagnoses Malignant neoplasm of unspecified renal pelvis C65.9
--- OUTSIDE RECORDS SUMMARY | 2024-02-09 10:55 | XMS_ITS | Continuity of Care Document ---
Author Organization [facility] Address [address] [place] [address]- Care Team Providers Care Geotechnical Intern Name Role Phone Pedro Burnett DO Primary Care Physician Encounter 06/07/23 - 06/14/23 [facility] [address], [address] [place] [address]- Attending Physician: Jose F Richmond MD Admitting Physician: Jose F Richmond MD Referring Physician: Jose F Richmond MD Allergies, Adverse Reactions, Alerts No Known Allergies Immunizations Given and Recorded Vaccine Date Status Refusal Reason [id number] bivalent booster vax 10/01/22 Recorded influenza virus vaccine, inactivated 06/09/22 Tony rded influenza virus vaccine, inactivated 07/07/21 Tony rded influenza virus vaccine, inactivated 06/21/19 Tony rded influenza virus vaccine, inactivated 06/05/18 Tony rded SARS-CoV-2 (COVID-19) mRNA-1273 vaccine 01/20/22 R ecorded SARS-CoV-2 (COVID-19) mRNA-1273 vaccine 07/19/21 R ecorded SARS-CoV-2 (COVID-19) mRNA-1273 vaccine 11/11/20 R ecorded SARS-CoV-2 (COVID-19) mRNA-1273 vaccine 10/12/20 R ecorded Influenza Virus Vaccine (oldterm) 06/06/20 Recorde d Influenza Virus Vaccine (oldterm) 06/24/19 Recorde d pneumococcal 23-valent vaccine 10/28/19 Recorded pneumococcal 23-valent vaccine 10/25/19 Recorded Medications bisoprolol 5 mg oral tablet 1.5 tablet, By Mouth, Daily, # 135 tablet, 1 Refills, Maintenance, 06/01/23 6:31:00 EDT, [id number], 155, cm, 02/27/23 10:49:00 EDT, Height, 62, kg, 12/04/22 18:01:00 EDT, Dry Weight Start Date: 06/01/23 Status: Ordered ezetimibe-simvastatin 10 mg-80 mg oral tablet 1 tablet, By Mouth, Daily, # 90 tablet, 1 Refills, Maintenance, 03/04/23 20:50:00 EDT, [id number], 90, TAKE 1 TABLET BY MOUTH EVERY DAY, 155, cm, 02/27/23 10:49:00 EDT, Height, 62, kg, 12/04/22 18:01:00 EDT, Dry Weight Start Date: 03/04/23 Status: Ordered furosemide 20 mg oral tablet 1, tablet, By Mouth, Daily, # 90 tablet, Refills 0, Maintenance, 07/20/22 6:51:00 EST, Route to Pharmacy Electronically, [id number], 155, cm, 05/11/22 10:19:00 EDT, Height, 64.5, kg, 04/05/22 6:59:00 EDT, Dry Weight Start Date: 07/20/22 Status: Ordered Klor-Con M20 20 mEq oral tablet, extended release 1 tablet, By Mouth, Daily, # 90 tablet, 0 Refills, Maintenance, 03/02/23 17:31:00 EDT, [id number], 155, cm, 02/27/23 10:49:00 EDT, Height, 62, kg, 12/04/22 18:01:00 EDT, Dry Weight Start Date: 03/02/23 Status: Ordered levothyroxine 0.05 mg oral tablet 1 tablet, By Mouth, Daily, # 90 tablet, 1 Refills, Maintenance, 01/21/23 22:15:00 EDT, [facility]/pharmacy#[id number], 155, cm, 01/12/23 11:03:00 EDT, Height, 62, kg, 12/04/22 18:01:00 EDT, Dry Weight Start Date: 01/21/23 Status: Ordered traZODone 100 mg oral tablet 1, tablet, By Mouth, Daily at bedtime, # 30 tablet, Refills 1, Tot. 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 Chronic kidney disease, stage 3b Confirmed Active COVID-19 1 Confirmed 02/25/22 Active Post-COVID syndrome Confirmed Active Abnormal chest CT Confirmed Active Pancreatic cyst Confirmed Active 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 History of prostate cancer Confirmed Active 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 Hyperlipidemia Confirmed Active Hypertension Confirmed Active Hypokalemia Confirmed Active Inguinal hernia Confirmed Active Insomnia Confirmed Active Prostate cancer 3 Confirmed Active Encounter for annual wellness exam in Medicare patient Confirmed Active Peripheral edema Confirmed Active Colon polyp 4 Confirmed Active Homocysteine level above reference range 5 Confirmed Active Renal artery stenosis Confirmed Active Lumbar spinal stenosis Confirmed Active SVT (supraventricular tachycardia) Confirmed Active 1Problem added by Discern Expert Betito Ruelas 3Djaky Ruelas-2008 Nela 6-Brachytherpy and bicalutamide - neg 5treated with folic acid Results Radiology Reports * Exam Date Time Procedure Performing Provider Status 06/07/23 11:[address] Chest W/O Contrast Lien Rushing; Auth (Verified) Notes: (CT Chest W/O Contrast) Reason For Exam: Undiagnosed Mass/Nodule RESULT: CT Chest W/O Contrast CT Chest W/O Contrast INDICATION: Reason: Undiagnosed Mass Nodule; Clinical Question(s): Other: TECHNIQUE: Helical CT scan of the chest without IV contrast, formatted in 3 planes. Weight-based protocol was performed using automatic exposure control. CTDIvol Body: 3.32 mGy, DLP Body: 115 mGy*cm. COMPARISON: 06/21/2022 FINDINGS: Few scattered diverticula at the splenic flexure. Stable pancreatic calcifications. Small amount of mucous in the trachea. Juxtapleural nodule in the right middle lobe on image 61 of series 3 is stable Reticulonodularity and groundglass within the superior segment of the right lower lobe. Reticulonodularity has not changed. Groundglass has decreased. New small area of atelectasis and/or scarring in the anterior right upper lobe Groundglass nodule superior segment left lower lobe image 40 series 3 is stable. Left lower lobe nodule image 58 series 4 is stable. Other small bilateral pulmonary nodules haven't changed Old fractures haven't changed IMPRESSION: No new or enlarging nodules. Previously noted nodules are stable or have decreased. They are likelyinfectious and/or inflammatory New small area of atelectasis and/or scarring in the anterior right upper lobe Other incidental findings are outlined above WSN: [id number] Ordering Physician: Jose F Richmond Dictated By: Giuliano Bardales MD Dictated Date/Time: 06/07/23 11:53 a Reviewed By: Giuliano Bardales MD Signed By: Giuliano Bardales MD Signed Date/Time: 06/07/23 11:53 am Transcribed By: JAMEEL Transcribed Date/Time: 06/07/23 11:37 am Social History Social History Type Response Tobacco Use: pt denies. Sex Implantable Device List Procedure Provider Procedure Date Device Type Site Repair Hernia Inguinal Open Jermain Timmons MD 01/18/23 Un known Groin Right Device Identifier Serial Number Lot or Batch Number Manufacturing Date Expiration Date Distinct Identification Code MRI Safety Implantable Status Assigning Authority Unknown Unknown [id number] Unknown 02/22/25 Unknown Unknown Active Unknown Patient Care team information Care Team Personnel Name: Nayely Adams RN Position: [facility] RN Member Role: Primary Care Nurse Name: Royce Awad MD Position: [facility] Renal Member Role: Lifetime Consulting Physician Address: Address: [address] [place] [address], [address] [place] [address]- Name: Letty Castelan RN Position: S RN Member Role: Primary Care Nurse Name: Kristal Soliman Position: S RN Member Role: Primary Care Nurse Name: Pedro Burnett DO Position: [facility] Physician - Primary Care Member Role: PCP Address: Address: [address] [place] [address] [place] [address]- [place] Name: Kristofer Clark MD Position: [facility] Renal Member Role: Lifetime Consulting Physician Address: Address: [address] [place] [address] [address] [facility] [place] [address]- Name: Jose F Richmond MD Position: [facility] Physician - Pulm/Critical Care Med Service: Pulmonology Member Role: Referring Physician Address: Address: [address] [place] [address], [address] floor [facility] [place] [address]- Care Team Related Persons Name: LETICIA CHAN Address: [address] [place] [address] Name: CHAVEZ BERKOWITZ
--- OUTSIDE RECORDS SUMMARY | 2024-02-09 10:55 | XMS_ITS | Continuity of Care Document ---
Author Organization [facility] ([facility] Address [address] [place] [address]- Care Team Providers Care Food And Nutrition Teacher Name Role Phone Pedro Burnett DO Primary Care Physician Encounter [facility] Date(s): 02/27/23 - 03/29/23 [facility] [address], [place] [address] Attending Physician: Admtr, [id number] Admitting Physician: Admtr, Ar8 Referring Physician: Admtr, Ar8 Allergies, Adverse Reactions, Alerts No Known Allergies Immunizations Given and Recorded Vaccine Date Status Refusal Reason [id number] bivalent booster vax 10/01/22 Recorded influenza virus [...] Mouth, Daily, # 135 tablet, 1 Refills, 12/02/22 12:22:00 EDT, [facility]/pharmacy #[id number], 155, cm, 11/25/22 14:21:00 EDT, Height, 63, kg, 11/25/22 14:21:00 EDT, Dry Weight Start Date: 12/02/22 Status: Ordered ezetimibe-simvastatin 10 mg-80 mg oral tablet 1 tablet, By Mouth, Daily, # 90 tablet, 1 Refills, Maintenance, 03/04/23 20:50:00 EDT, [id number], 90, TAKE 1 TABLET BY MOUTH EVERY DAY, 155, cm, 02/27/23 10:49:00 EDT, Height, 62, kg, 12/04/22 18:01:00 EDT, Dry Weight Start Date: 03/04/23 Status: Ordered furosemide 20 mg oral tablet 1, tablet, By Mouth, Daily, # 90 tablet, Refills 0, Maintenance, 07/20/22 6:51:00 EST, Route to Pharmacy Electronically, [id number], 155, cm, 05/11/22 10:19:00 EDT, Height, 64.5, kg, 04/05/22 6:59:00 EDT, Dry Weight Start Date: 07/20/22 Status: Ordered Klor-Con M20 20 mEq oral tablet, extended release 1 tablet, By Mouth, Daily, # 90 tablet, 0 Refills, Maintenance, 03/02/23 17:31:00 EDT, [facility], 155, cm, 02/27/23 10:49:00 EDT, Height, 62, kg, 12/04/22 18:01:00 EDT, Dry Weight Start Date: 03/02/23 Status: Ordered levothyroxine 0.05 mg oral tablet 1 tablet, By Mouth, Daily, # 90 tablet, 1 Refills, Maintenance, 01/21/23 22:15:00 EDT, [facility]/pharmacy#[id number], 155, cm, 01/12/23 11:03:00 EDT, Height, 62, kg, 12/04/22 18:01:00 EDT, Dry Weight Start Date: 01/21/23 Status: Ordered traZODone 100 mg oral tablet 1, tablet, By Mouth, Daily at bedtime, # 30 tablet, Refills 1, Tot. Refills 1, Maintenance, 03/29/23 9:17:00 EDT, [facility], [id number], 155, cm, 02/27/23 10:49:00 EDT,Height, 62, [...] Confirmed Active 1Problem added by Discern Expert 2Djaky Ruelas 3DrDina Ruelas-2008 Nela 6-Brachytherpy and bicalutamide - neg 5treated with folic acid Vital Signs Most recent to oldest [Reference Range]: 1 Blood Pressure [90-138/55-84 mm Hg] 144/ 74mm Hg *H* (03/28/23 1:19 PM) Social History Social History Type Response Tobacco Use: pt denies. Sex Implantable Device List Procedure Provider Procedure Date Device Type Site Repair Hernia Inguinal Open Jermain Timmons MD 01/18/23 Un known Groin Right Device Identifier Serial Number Lot or Batch Number Manufacturing Date Expiration Date Distinct Identification Code MRI Safety Implantable Status Assigning Authority Unknown Unknown [id number] Unknown 02/22/25 Unknown Unknown Active Unknown Patient Care team information Care Team Personnel Name: Nayely Adams RN Position: S RN Member Role: Primary Care Nurse Name: Royce Awad MD Position: [facility]al Member Role: Lifetime Consulting Physician Address: Address: [address] [place] [address], [address] [place] [address] Name: Letty Castelan RN Position: [facility] RN Member Role: Primary Care Nurse Name: Kristal Soliman Position: S RN Member Role: Primary Care Nurse Name: Pedro Burnett DO Position: [facility] Physician - Primary Care Member Role: PCP Address: Address: [address] [place] [address] [place] [address]- Name: Eduardo VELASQUEZ, Kristofer Position: [facility] Renal MD Member Role: Lifetime Consulting Physician Address: Address: [address] [facility] [place] [address]- Care Team Related Persons Name: LETICIA CHAN Address: home [address] [place] [address] Name: CHAVEZ BERKOWITZ
--- OUTSIDE RECORDS SUMMARY | 2024-02-09 10:55 | XMS_ITS | Continuity of Care Document ---
Author Organization [facility] Address [address] [place] [address]- Care Team Providers Care Director Export Name Role Phone Pedro Burnett DO Primary Care Physician Encounter [facility] Date(s): 07/17/23 - 08/16/23 [facility] [address] [place], [place] [address] Attending Physician: AdmNay choudhury Admitting Physician: Admtr, Nay Referring Physician: Admtr, Ar8 Allergies, Adverse Reactions, Alerts No Known Allergies Immunizations Given and Recorded Vaccine Date Status Refusal Reason RSV vaccine, preF A-preF B, recombinant 06/29/23 R ecorded SARS-CoV-2(COVID-19)mRNA-LNP vac([id number]) 06/29/23 Recorded influenza virus vaccine, inactivated 06/21/23 Tony rded influenza virus vaccine, inactivated 06/09/22 Tony rded influenza virus vaccine, inactivated 07/07/21 Tony rded influenza virus vaccine, inactivated 06/21/19 Tony rded influenza virus vaccine, inactivated 06/05/18 Tony rded [id number] bivalent booster vax 10/01/22 Recorded SARS-CoV-2 (COVID-19) mRNA-1273 vaccine 01/20/22 R ecorded [...] tablet, 1 Refills, Maintenance, 06/01/23 6:31:00 EDT, [facility], 155, cm, 02/27/23 10:49:00 EDT, Height, 62, kg, 12/04/22 18:01:00 EDT, Dry Weight Start Date: 06/01/23 Status: Ordered ezetimibe-simvastatin 10 mg-80 mg oral tablet 1 tablet, By Mouth, Daily, # 90 tablet, 1 Refills, Maintenance, 03/04/23 20:50:00 EDT, [facility], 90, TAKE 1 TABLET BY MOUTH EVERY DAY, 155, cm, 02/27/23 10:49:00 EDT, Height, 62, kg, 12/04/22 18:01:00 EDT, Dry Weight Start Date: 03/04/23 Status: Ordered furosemide 20 mg oral tablet 1, tablet, By Mouth, Daily, # 90 tablet, Refills 0, Maintenance, 07/20/22 6:51:00 EST, Route to Pharmacy Electronically, [facility], 155, cm, 05/11/22 10:19:00 EDT, Height, 64.5, kg, 04/05/22 6:59:00 EDT, Dry Weight Start Date: 07/20/22 Status: Ordered Klor-Con M20 20 mEq oral tablet, extended release 1 tablet, By Mouth, Daily, # 90 tablet, 0 Refills, Maintenance, 03/02/23 17:31:00 EDT, [facility], 155, cm, 02/27/23 10:49:00 EDT, Height, 62, kg, 12/04/22 18:01:00 EDT, Dry Weight Start Date: 03/02/23 Status: Ordered levothyroxine 0.05 mg oral tablet 1 tablet, By Mouth, Daily, # 90 tablet, 1 Refills, Maintenance, 07/18/23 11:31:00 EST, [facility], 155, cm, 07/17/23 14:59:00 EST, Height, 62, kg, 12/04/22 18:01:00 EDT, Dry Weight Start Date: 07/18/23 Status: Ordered traZODone 100 mg oral tablet 1, tablet, By Mouth, Daily at bedtime, # 90 tablet, Refills 0, Tot. 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 Basilio 3Dr. Ruleas-2009 Nela 6-Brachytherpy and bicalutamide - neg 5treated with folic acid Social History Social History Type Response Tobacco Use: pt denies. Sex Implantable Device List Procedure Provider Procedure Date Device Type Site Repair Hernia Inguinal Open Iain VELASQUEZ, Jermain Causey 01/18/23 Un known Groin Right Device Identifier Serial Number Lot or Batch Number Manufacturing Date Expiration Date Distinct Identification Code MRI Safety Implantable Status Assigning Authority Unknown Unknown [id number] Unknown 02/22/25 Unknown Unknown Active Unknown Patient Care team information Care Team Personnel Name: Bryan REDDY, Nayely Position: S RN Member Role: Primary Care Nurse Name: Demli VELASQUEZ, Royce Galvan Position: [facility] Renal MD Member Role: Lifetime Consulting Physician Address: Address: [address] [place] [address], [address] [place] [address] Name: Letty Castelan RN Position: [facility] RN Member Role: Primary Care Nurse Name: Kristal Soliman Position: [facility] RN Member Role: Primary Care Nurse Name: Pedro Burnett DO Position: [facility] Physician - Primary Care Member Role: PCP Address: Address: [address] [place] [address]- [place] Name: Kristofer Clark MD Position: [facility] Renal MD Member Role: Lifetime Consulting Physician Address: Address: [address] [facility] [address] [facility] [place] [address]- Care Team Related Persons Name: LETICIA CHAN Address: home [address] [place] [address] Name: CHAVEZ BERKOWITZ
--- OUTSIDE RECORDS SUMMARY | 2024-02-09 10:55 | XMS_ITS | Continuity of Care Document ---
Author Organization [facility] Address [address] [place] [address]- Care Team Providers Care Woodworking Craftsman Name Role Phone Pedro Burnett DO Primary Care Physician Encounter [facility] Date(s): 01/18/23 - 01/18/[address] [address]- Encounter Diagnosis Bradycardia(Discharge Diagnosis) - 01/18/23 SVT (supraventricular tachycardia)(Discharge Diagnosis) - 01/18/23 (HFpEF) heart failure with preserved ejection fraction(Discharge Diagnosis) - 01/18/23 Discharge Disposition: A-D/C Home Attending Physician: Jermain Timmons MD Admitting Physician: Jermain Timmons MD Referring Physician: Jermain Timmons MD Allergies, Adverse Reactions, Alerts No Known Allergies Immunizations Given and Recorded Vaccine Date Status Refusal Reason [id number] bivalent booster vax 10/01/22 Recorded influenza virus [...] (oldterm) 06/24/19 Recorde d pneumococcal 23-valent vaccine 3/2/20 Recorded pneumococcal 23-valent vaccine 10/25/19 Recorded Medications bisoprolol 5 mg oral tablet 1.5 tablet, By Mouth, Daily, # 135 tablet, 1 Refills, 12/02/22 12:22:00 EDT, [facility]/pharmacy #[id number], 155, cm, 11/25/22 14:21:00 EDT, Height, 63, kg, 11/25/22 14:21:00 EDT, Dry Weight Start Date: 12/02/22 Status: Ordered ezetimibe-simvastatin 10 mg-80 mg oral tablet 1 tablet, By Mouth, Daily, # 90 tablet, 0 Refills, Maintenance, 12/06/22 14:19:00 EDT, Tablet, [facility]/pharmacy #[id number], Partial fill upon patient request if the prescription is for a schedule II opioid drug., 1 tablet By Mouth Daily, 155, cm, 12/06/22 12:4... Start Date: 12/06/22 Status: Ordered Fentanyl Inj (PACU ONLY) 25 mcg, Injection, IV Push Slowly, Every 5 minutes for 8 doses/times, in PACU ONLY, PRN for Pain , Moderate, Routine, 01/18/23 12:16:00 EDT, Stop date Limited # of times Start Date: 01/18/23 Stop Date: 01/18/23 Status: Discontinued furosemide 20 mg oral tablet 1, tablet, By Mouth, Daily, # 90 tablet, Refills 0, Maintenance, 07/20/22 6:51:00 EST, Route to Pharmacy Electronically, [facility]ORE [id number], 155, cm, 05/11/22 10:19:00 EDT, Height, 64.5, kg, 04/05/22 6:59:00 EDT, Dry Weight Start Date: 07/20/22 Status: Ordered Klor-Con M20 20 mEq oral tablet, extended release 1 tablet, By Mouth, Daily, # 90 tablet, 0 Refills, Maintenance, 12/02/22 12:52:00 EDT, [facility]/pharmacy#[id number], 155, cm, 11/25/22 14:21:00 EDT, Height, 63, kg, 11/25/22 14:21:00 EDT, Dry Weight Start Date: 12/02/22 Status: Ordered levothyroxine 0.05 mg oral tablet 1 tablet, By Mouth, Daily, # 90 tablet, 1 Refills, Maintenance, 07/13/22 13:52:00 EST, [facility], 155, cm, 05/11/22 10:19:00 EDT, Height, 64.5, kg, 04/05/22 6:59:00 EDT, Dry Weight Start Date: 07/13/22 Status: Ordered oxyCODONE 5 mg oral tablet 5 mg, 1, tablet, By Mouth, Every 6 hours, PRN, # 5 tablet, Refills 0, Tot. Refills 0, Acute 01/21/23 11:57:00 EDT, as needed for pain, 01/18/23 11:56:00 EDT, Route to Pharmacy Electronically, [facility]/pharmacy #[id number], Partial fill upon patient request if th... Start Date: 01/18/23 Stop Date: 01/21/23 Status: Ordered traZODone 100 mg oral tablet 1, tablet, By Mouth, Daily at bedtime, # 30 tablet, Refills 0, Maintenance, 01/09/23 17:14:00 EDT, Route to Pharmacy Electronically, [id number], 155, cm, 12/06/22 12:49:00 EDT, Height, 62, kg, 12/04/22 18:01:00 EDT, Dry Weight Start Date: 01/09/23 Status: Ordered Problem List Condition Confirmation Course [...] 1Problem added by Discern Expert Betito Ruelas 3DrDina Ruelas-2008 [place] 6-Brachytherpy and bicalutamide - neg 5treated with folic acid Diagnosis Diagnosis Type Effective Dates Health Status Clinical Service Informant Bradycardia Discharge Diagnosis 01/18/23 SVT (supraventricular tachycardia) Discharge Diagnosis 01/18/23 (HFpEF) heart failure with preserved ejection fraction Discharge Diagnosis 01/18/23 Vital Signs Most recent to oldest [Reference Range]: 1 2 3 Oxygen Saturation [94-100 %] 99 % (01/18/23 1:42 PM) 99 % (01/18/23 12:53 PM) 97 % (01/18/23 12:32 PM) Pulse Rate [55-90 bpm] 46 bpm *L* (01/18/23 9:12 AM) Blood Pressure [90-138/55-84 mm Hg] 149/62mm Hg *H* (01/18/23 12:53 PM) 144/62mm Hg *H* (01/18/23 12:32 PM) 144/66mm Hg *H* (01/18/23 12:25 PM) Respiratory Rate [16-30 br/min] 18 br/min (01/18/23 1:42 PM) 18 br/min (01/18/23 1:23 PM) 12 br/min *L* (01/18/23 12:53 PM) Temperature [96.8-100.4 DegF] 97.0 DegF (01/18/23 11:53 AM) 97.9 DegF (01/18/23 9:12 AM) Mode of Delivery (Oxygen) Room air (01/18/23 1:42 PM) Room air (01/18/23 12:53 PM) Room air (01/18/23 12:32 PM) Temperature Route Temporal (01/18/23 11:53 AM) Temporal (01/18/23 9:12 AM) Social History Social History Type Response Tobacco Use: pt denies. Sex Implantable Device List Procedure Provider Procedure Date Device Type Site Repair Hernia Inguinal Open Iain VELASQUEZ, Jemrain Causey 01/18/23 Un known Groin Right Device Identifier Serial Number Lot or Batch Number Manufacturing Date Expiration Date Distinct Identification Code MRI Safety Implantable Status Assigning Authority Unknown Unknown [id number] Unknown 02/22/25 Unknown Unknown Active Unknown Patient Care team information Care Team Personnel Name: Bryan REDDY, Nayely Position: [facility] RN Member Role: Primary Care Nurse Name: Delmi VELASQUEZ, Royce Galvan Position: [facility] Physician (General Medicine) Member Role: Lifetime Consulting Physician Address: Address: [address] [place] [address], [address] [place] [address]- Name: Letty Castelan RN Position: [facility] RN Member Role: Primary Care Nurse Name: Kristal Soliman Position: [facility] RN Member Role: Primary Care Nurse Name: Pedro Burnett DO Position: [facility] Physician - Primary Care Member Role: PCP Address: Address: [address] [place] [address] [place] [address]- Name: Kristofer Clark MD Position: [facility] Renal MD Member Role: Lifetime Consulting Physician Address: Address: [address] [place] [address] [address] [facility] [place] [address]- Care Team Related Persons Name: LETICIA CHAN Name: CHAVEZ BERKOWITZ
--- OUTSIDE RECORDS SUMMARY | 2024-02-09 10:55 | XMS_ITS | Continuity of Care Document ---
Author Organization [facility] Address [address] [place], [place] [address]mariza casey, [address] [place] [address]- Care Team Providers Care Central Control Room Operator Name Role Phone Pedro Burnett DO Primary Care Physician Encounter [facility] Date(s): 05/09/22 - 06/08/[address], [address] [place], [place] [address] Attending Physician: AdmBenigno [id number] Admitting Physician: Admtr, Ar8 Referring Physician: Admtr, Ar8 Allergies, Adverse Reactions, Alerts No Known Allergies Immunizations Given and Recorded Vaccine Date Status Refusal Reason SARS-CoV-2 (COVID-19) mRNA-1273 vaccine 01/20/22 R ecorded SARS-CoV-2 (COVID-19) mRNA-1273 vaccine 07/19/21 R ecorded SARS-CoV-2 (COVID-19) mRNA-1273 vaccine 11/11/20 R ecorded SARS-CoV-2 (COVID-19) mRNA-1273 vaccine 10/12/20 R ecorded influenza virus vaccine, inactivated 07/07/21 Tony rded influenza virus vaccine, inactivated 06/21/19 Tony rded influenza virus vaccine, inactivated 06/05/18 Tony rded Influenza Virus Vaccine (oldterm) 06/06/20 Recorde d Influenza Virus Vaccine (oldterm) 06/24/19 Recorde d pneumococcal 23-valent vaccine 10/28/19 Recorded pneumococcal 23-valent vaccine 10/25/19 Recorded Medications Aspirin Low Dose 81 mg oral delayed release tablet 1 tablet = 81 mg, By Mouth, Daily, # 30 tablet, 0 Refills, Maintenance, 04/11/22 9:49:00 EDT, EC Tablet, [id number], Partial fill upon patient request if the prescription is for a schedule IIopioid drug., 155, cm, 04/11/22 7:33:00 EDT, Height... Start Date: 04/11/22 Status: Ordered bisoprolol 5 mg oral tablet 1.5 tablet, By Mouth, Daily, # 135 tablet, 1 Refills, [facility] ST[facility] [id number], 155, cm, 04/12/22 7:39:00 EDT, Height, 64.5, kg, 04/05/22 6:59:00 EDT, Dry Weight Start Date: 04/12/22 Status: Ordered Chem 7 Chem 7, See Instructions, # 1 each, Refills 0, Tot. Refills 0, Maintenance, please get blood work on 04/29/22 and send results tp PCP to monitor K, 04/28/22 9:47:00 EDT, Supply Start Date: 04/28/22 Status: Ordered ezetimibe-simvastatin 10 mg-80 mg oral tablet 1 tablet, By Mouth, Daily, # 90 tablet, 1 Refills, 04/11/22 9:49:00 EDT, [facility]/pharmacy #[id number], 90, 1 tablet By Mouth Daily, 155, cm, 04/11/22 7:33:00 EDT, Height, 64.5, kg, 04/05/22 6:59:00 EDT, Dry Weight Start Date: 04/11/22 Status: Ordered felodipine 2.5 mg oral tablet, extended release 1 tablet = 2.5 mg, By Mouth, Daily at supper, # 30 tablet, 0 Refills, Maintenance, 04/11/22 9:49:00EDT, ER Tablet, [facility]/pharmacy #[id number], Partial fill upon patient request if the prescription is for a schedule II opioid drug., 155, cm, 04/11/22 7:33:00... Start Date: 04/11/22 Status: Ordered furosemide 20 mg oral tablet 20 mg, 1, tablet, By Mouth, Daily, # 90 tablet, Refills 0, Tot. Refills 0, Maintenance, 04/23/22 6:06:00 EDT, Route to Pharmacy Electronically, [facility]/pharmacy #[id number], Partial fill upon patient request if the prescription is for a schedule II opioid drug.... Start Date: 04/23/22 Status: Ordered levothyroxine 0.05 mg oral tablet 1 tablet = 50 mcg, By Mouth, Daily, # 90 tablet, 0 Refills, Maintenance, 04/23/22 5:26:00 EDT, Tablet, [facility]/pharmacy #[id number], Partial fill upon patient request if the prescription is for a schedule II opioid drug., 155, cm, 04/13/22 15:46:00 EDT, Height,... Start Date: 04/23/22 Status: Ordered traZODone 100 mg oral tablet 1, tablet, By Mouth, Daily at bedtime, # 90 tablet, Refills 1, Tot. Refills 1, 04/11/22 9:49:00 EDT, Route to Pharmacy Electronically, [facility]/pharmacy #[id number], 155, cm, 04/11/22 7:33:00 EDT, Height, 64.5,kg, 04/05/22 6:59:00 EDT, Dry Weight Start Date: 04/11/22 Status: Ordered Vitamin D3 1000 intl units oral capsule 1 capsule = 25 mcg, By Mouth, Daily, # 30 capsule, 0 Refills, Maintenance, 04/11/22 9:49:00 EDT, Capsule, [facility]/pharmacy #[id number], Partial fill upon patient request if the prescription is for a schedule II opioid drug., 155, cm, 04/11/22 7:33:00 EDT, Heigh... 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 kidney disease (CKD) stage G3a/A1, moderately decreased glomerular filtration rate (GFR) between 45-59 mL/min/1.73 square meter and albuminuria creatinine ratio less than 30 mg/g 1 Confirmed Active COVID-19 2 Confirmed 02/25/22 Active Post-COVID syndrome Confirmed Active Abnormal chest CT Confirmed Active Maribel's disease Confirmed Active History of prostate cancer Confirmed Active 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 Confirmed Active Hyperlipidemia Confirmed Active Hypertension Confirmed Active Hypokalemia Confirmed Active Insomnia Confirmed Active Prostate cancer 4 Confirmed Active Encounter for annual wellness exam in Medicare patient Confirmed Active Peripheral edema Confirmed Active Colon polyp 5 Confirmed Active Homocysteine level above reference range 6 Confirmed Active Renal artery stenosis Confirmed Active Lumbar spinal stenosis Confirmed Active 1nephrologist 2Problem added by Discern Expert 3Djaky Ruelas 4DrDina Ruelas-2008 [place] 6-Brachytherpy and bicalutamide - neg 6treated with folic acid Social History Social History Type Response Tobacco Use: pt denies. Sex Patient Care team information Personnel Name: Pedro Burnett DO Address: Address: [address] [place] [address] [address]
--- OUTSIDE RECORDS SUMMARY | 2024-02-09 10:55 | XMS_ITS | Continuity of Care Document ---
Author Organization [facility] Address [address] [place], [place] [address]mariza casey, [address] [place] [address]- Care Team Providers Care Filament Maker Name Role Phone Pedro Burnett DO Primary Care Physician Encounter [facility] [place] Date(s): 05/09/22 - 05/16/[address], [address] [place], [place] [address] Attending Physician: Walter Diehl MD Referring Physician: Pedro Burnett DO Allergies, Adverse Reactions, Alerts No Known Allergies [...] Maintenance, 04/11/22 9:49:00 EDT, EC Tablet, [id number], Partial fill upon patient request if the prescription is for a schedule IIopioid drug., 155, cm, 04/11/22 7:33:00 EDT, Height... Start Date: 04/11/22 Status: Ordered bisoprolol 5 mg oral tablet 1.5 tablet, By Mouth, Daily, # 135 tablet, 1 Refills, [facility], 155, cm, 04/12/22 7:39:00 EDT, Height, 64.5, [...] 90 tablet, 1 Refills, 04/11/22 9:49:00 EDT, [facility]/pharmacy #[id number], 90, 1 tablet By Mouth Daily, 155, cm, 04/11/22 7:33:00 EDT, Height, 64.5, kg, 04/05/22 6:59:00 EDT, Dry Weight Start Date: 04/11/22 Status: Ordered felodipine 2.5 mg oral tablet, extended release 1 tablet = 2.5 mg, By Mouth, Daily at supper, # 30 tablet, 0 Refills, Maintenance, 04/11/22 9:49:00EDT, ER Tablet, [facility]/pharmacy #[id number], Partial fill upon patient request if the prescription is for a schedule II opioid drug., 155, cm, 04/11/22 7:33:00... Start Date: 04/11/22 Status: Ordered furosemide 20 mg oral tablet 20 mg, 1, tablet, By Mouth, Daily, # 90 tablet, Refills 0, Tot. Refills 0, Maintenance, 04/23/22 6:06:00 EDT, Route to Pharmacy Electronically, [facility]/pharmacy #[id number], Partial fill upon patient request if the prescription is for a schedule II opioid drug.... Start Date: 04/23/22 Status: Ordered levothyroxine 0.05 mg oral tablet 1 tablet = 50 mcg, By Mouth, Daily, # 90 tablet, 0 Refills, Maintenance, 04/23/22 5:26:00 EDT, Tablet, [facility]/pharmacy #[id number], Partial fill upon patient request if the prescription is for a schedule II opioid drug., 155, cm, 04/13/22 15:46:00 EDT, Height,... Start Date: 04/23/22 Status: Ordered traZODone 100 mg oral tablet 1, tablet, By Mouth, Daily at bedtime, # 90 tablet, Refills 1, Tot. Refills 1, 04/11/22 9:49:00 EDT, Route to Pharmacy Electronically, [facility]/pharmacy #[id number], 155, cm, 04/11/22 7:33:00 EDT, Height, 64.5,kg, 04/05/22 6:59:00 EDT, Dry Weight Start Date: 04/11/22 Status: Ordered Vitamin D3 1000 intl units oral capsule 1 capsule = 25 mcg, By Mouth, Daily, # 30 capsule, 0 Refills, Maintenance, 04/11/22 9:49:00 EDT, Capsule, [facility]/pharmacy #[id number], Partial fill upon patient request if the prescription is for a schedule II opioid drug., 155, cm, 04/11/22 7:33:00 EDT, Heigh... 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(Confirmed) Active Chronic kidney disease (CKD) stage G3a/A1, moderately decreased glomerular filtration rate (GFR) between 45-59 mL/min/1.73 square meter and albuminuria creatinine ratio less than 30 mg/g(Confirmed) 1 Active COVID-19(Confirmed) 2 02/25/22 Active Post-COVID syndrome(Confirmed) Active Abnormal chest CT(Confirmed) Active Maribel's disease(Confirmed) Active History of prostate cancer(Confirmed) Active Homocystinemia(Confirmed) Active Hydronephrosis with ureterop elvic junction obstruction(Confirmed) 3 Active Hyperlipidemia(Confirmed) Active Hypertension(Confirmed) Active Hypokalemia(Confirmed) Active Insomnia(Confirmed) Active Prostate cancer(Confirmed) 4 Active Encounter for annual wellnes s exam in Medicare patient(Confirmed) Active Peripheral edema(Confirmed) Active Colon polyp(Confirmed) 5 Active Homocysteine level above ref erence range(Confirmed) 6 Active Renal artery stenosis(Confirmed) Active Lumbar spinal stenosis(Confirmed) Active 1nephrologist 2Problem added by Discern Expert 3DrDina Ruelas 4Dr. Suraj-2008 [place] 6-Brachytherpy and bicalutamide - neg 6treated with folic acid Social History Social History Type Response Tobacco Use: pt denies. Sex Care Team Personnel Name: Pedro Burnett DO Address: [address] [place] [address] [address]
--- OUTSIDE RECORDS SUMMARY | 2024-02-09 10:55 | XMS_ITS | Continuity of Care Document ---
Author Organization [facility] Address [address] [place] [address]- Care Team Providers Care Bag Sorter Name Role Phone Pedro Burnett DO Primary Care Physician Encounter [facility] [place] Date(s): 03/26/22 - 03/30/[address] [address]- Encounter Diagnosis Weakness(Final) - 03/25/22 Arrhythmia(Final) - 03/25/22 Discharge Disposition: A-Transfer VNA/Home Health Attending Physician: Jonatan Holloway MD Admitting Physician: Sanchez Tamez MD Referring Physician: Not on Staff, Referring MD Allergies, Adverse Reactions, Alerts No Known [...] Recorded pneumococcal 23-valent vaccine 10/25/19 Recorded Medications amLODIPine 5 mg oral tablet 5 mg, Tablet, By Mouth, 03/30/22 9:00:00 EDT Start Date: 03/30/22 Stop Date: 03/30/22 Status: Completed Aspirin Low Dose 81 mg oral delayed release tablet 1 tablet = 81 mg, By Mouth, Daily, 0 Refills, Maintenance, 03/25/22 18:49:00 EDT, Partial fill uponpatient request if the prescription is for a schedule II opioid drug. Start Date: 03/25/22 Status: Ordered bisoprolol 5 mg oral tablet 1.5 tablet = 7.5 mg, By Mouth, Daily at supper, 0 Refills, Maintenance, 03/25/22 18:49:00 EDT, Partial fill upon patient request if the prescription is for a schedule II opioid drug. Start Date: 03/25/22 Status: Ordered ezetimibe-simvastatin 10 mg-80 mg oral tablet 1 tablet, By Mouth, Daily, # 90 tablet, 1 Refills, 02/28/22 6:30:00 EDT, [facility]/pharmacy #[id number], 90, 1 tablet By Mouth Daily, 155, cm, 02/25/22 16:00:00 EDT, Height, 71.8, kg, 02/24/22 17:17:00 EDT, Dry Weight Start Date: 02/28/22 Status: Ordered felodipine 2.5 mg oral tablet, extended release 1 tablet = 2.5 mg, By Mouth, Daily at supper, 0 Refills, Maintenance, 03/25/22 18:50:00 EDT, Partial fill upon patient request if the prescription is for a schedule II opioid drug. Start Date: 03/25/22 Status: Ordered furosemide 20 mg oral tablet 1, tablet, By Mouth, Daily, # 90 tablet, Refills 1, Route to Pharmacy Electronically, [facility], 165, cm, 07/13/21 13:18:00 EST, Height Start Date: 10/24/21 Status: Ordered Klor-Con M20 20 mEq oral tablet, extended release 1 tablet, By Mouth, Daily, # 90 tablet, 0 Refills, [facility] 07[facility], 165, cm, 07/13/21 13:18:00 EST,Height Start Date: 12/07/21 Status: Ordered Medrol Dosepak 4 mg oral tablet 1 pack/packet, By Mouth, Daily, for 6 days, as directed on package labeling, # 21 tablet, 0 Refills, Acute 04/05/22 13:42:00 EDT, 03/30/22 13:42:00 EDT, Tablet, [facility]/pharmacy #[id number], Partial fill upon patient request if the prescription is for a schedul... Start Date: 03/30/22 Stop Date: 04/05/22 Status: Ordered oxyCODONE 5 mg oral tablet 2.5 mg, Tablet, By Mouth, Every 6 hours, PRN for Pain , Moderate, Routine, 03/26/22 12:26:00 EDT Start Date: 03/26/22 Stop Date: 04/02/22 Status: Ordered Synthroid 0.05 mg oral tablet 1 tablet, By Mouth, Daily, DIRECTED., # 90 tablet, 3 Refills, Maintenance, 04/30/21 9:42:00 EDT,[facility]/pharmacy #[id number], branded-Synthroid only, 165, cm, 01/20/21 11:41:00 EDT, Height Start Date: 04/30/21 Status: Ordered traZODone 100 mg oral tablet 1, tablet, By Mouth, Daily at bedtime, # 90 tablet, Refills 1, Route to Pharmacy Electronically, [id number], 155, cm, 03/08/22 10:51:00 EDT, Height, 71.8, kg, 02/24/22 17:17:00 EDT, Dry Weight Start Date: 03/11/22 Status: Ordered Vitamin D3 1000 intl units oral capsule 1 capsule = 25 mcg, By Mouth, Daily, 0 Refills, Maintenance, 03/25/22 18:50:00 EDT, Partial fill upon patient request if the prescription is for a schedule II opioid drug. Start Date: 03/25/22 Status: Ordered Problem List Condition Effective Dates [...] wellnes s exam in Medicare patient(Confirmed) Active Colon polyp(Confirmed) 5 Active Homocysteine level above ref erence range(Confirmed) 6 Active Renal artery stenosis(Confirmed) Active 1nephrologist 2Problem added by Discern Expert Brittanie Ruelas 4DrDina Ruelas-2008 [place] 6-Brachytherpy and bicalutamide - neg 6treated with folic acid Results Radiology Reports * Exam Date Time Procedure Performing Provider Status 03/25/22 3:45 PM Chest Portable Roger Aranda (Verified) Notes: (Chest Portable) Reason For Exam: Shortness of Breath RESULT: Chest Portable Chest Portable Hx of Present Illness: reports increase weakness; Reason: Shortness of Breath; Clinical Question(s): CHF COMPARISON: 08/26/2019 FINDINGS: LINES AND TUBES: None. LUNGS AND PLEURA: Lungs are mildly hyperinflated with scattered reticular markings. No focal opacity or volume loss. Central vascular markings are within normal limits. No pleural effusion. No pneumothorax. HEART, MEDIASTINUM AND JEFF: Heart is at the upper limits of normal for size. Normal upper mediastinal and hilar contour. BONES AND SOFT TISSUES: No acute abnormality. Healed right rib fractures. IMPRESSION: No pneumonia or CHF. COPD. WSN: [id number] Ordering Physician: Isela Mukherjee Dictated By: Chao Sahu MD Dictated Date/Time: 03/25/22 3:48 pm Reviewed By: Chao Sahu MD Signed By: Chao Sahu MD Signed Date/Time: 03/25/22 3:48 pm Transcribed By: JAMEEL Transcribed Date/Time: 03/25/22 3:47 pm Vital Signs Most recent to oldest [Reference Range]: 1 2 3 Height 155 cm (03/30/22 11:48 AM) 155 cm (03/30/22 7:54 AM) 155 cm (03/30/22 2:02 AM) Oxygen Saturation [94-100 %] 97 % (03/30/22 11:48 AM) 98 % (03/30/22 7:54 AM) 100 % (03/30/22 2:02 AM) Pulse Rate [55-90 bpm] 60 bpm (03/30/22 11:48 AM) 46 bpm *L* (03/30/22 7:54 AM) 52 bpm *L* (03/30/22 2:02 AM) Blood Pressure [90-138/55-84 mm Hg] 138/65mm Hg (03/30/22 11:48 AM) 147/62mm Hg *H* (03/30/22 8:33 AM) 147/62mm Hg *H* (03/30/22 7:54 AM) Respiratory Rate [16-30 br/min] 16 br/min (03/30/22 11:48 AM) 16 br/min (03/30/22 7:54 AM) 18 br/min (03/30/22 2:17 AM) Temperature [96.8-100.4 DegF] 98.2 DegF (03/30/22 11:48 AM) 98.0 DegF (03/30/22 7:54 AM) 98.2 DegF (03/30/22 2:02 AM) Mode of Delivery (Oxygen) Room air (03/30/22 11:48 AM) Room air (03/30/22 7:54 AM) Room air (03/30/22 2:02 AM) Blood pressure sites Arm, right (03/30/22 11:48 AM) Arm, right (03/30/22 7:54 AM) Arm, right (03/30/22 2:02 AM) Temperature Route Oral (03/30/22 11:48 AM) Oral (03/30/22 7:54 AM) Oral (03/30/22 2:02 AM) Social History Social History Type Response Tobacco Use: pt denies. Sex
--- OUTSIDE RECORDS SUMMARY | 2024-02-09 10:55 | XMS_ITS | Continuity of Care Document ---
Author Organization [facility] ter Address [address] [place] [address]- Care Team Providers Care Wafer Fabrication Technician Name Role Phone Pedro Burnett DO Primary Care Physician Encounter [facility] [place] Date(s): 04/01/22 - 04/01/[address] [address]- Encounter Diagnosis Leg weakness, bilateral(Final) - 04/01/22 Discharge Disposition: A-D/C Home Attending Physician: Roman Milian DO Admitting Physician: Roman Milian DO Referring Physician: Not on Staff, Referring MD [...] 90 tablet, 1 Refills, 02/28/22 6:30:00 EDT, [facility]/pharmacy #[id number], 90, 1 tablet By Mouth [...] tablet, Refills 1, Route to Pharmacy Electronically, [facility], 165, cm, 07/13/21 13:18:00 EST, Height Start Date: 10/24/21 Status: Ordered Klor-Con M20 20 mEq oral tablet, extended release 1 tablet, By Mouth, Daily, # 90 tablet, 0 Refills, [facility], 165, cm, 07/13/21 13:18:00 EST,Height Start Date: 12/07/21 Status: Ordered Medrol Dosepak 4 mg oral tablet 1 pack/packet, By Mouth, Daily, for 6 days, as directed on package labeling, # 21 tablet, 0 Refills, Acute 04/05/22 13:42:00 EDT, 03/30/22 13:42:00 EDT, Tablet, [facility]/pharmacy #[id number], Partial fill upon patient request if the prescription is for a schedul... Start Date: 03/30/22 Stop Date: 04/05/22 Status: Ordered Synthroid 0.05 mg oral tablet 1 tablet, By Mouth, Daily, DIRECTED., # 90 tablet, 3 Refills, Maintenance, 04/30/21 9:42:00 EDT,[facility]/pharmacy #[id number], branded-Synthroid only, 165, cm, 01/20/21 11:41:00 EDT, Height Start Date: 04/30/21 Status: Ordered traZODone 100 mg oral tablet 1, tablet, By Mouth, Daily at bedtime, # 90 tablet, Refills 1, Route to Pharmacy Electronically, [id number], 155, cm, 03/08/22 10:51:00 EDT, Height, 71.8, [...] by Discern Expert Brittanie Ruelas 4DrDina Ruelas-2008 [place] 6-Brachytherpy and bicalutamide 510/- neg 6treated with folic acid Vital Signs Most recent to oldest [Reference Range]: 1 2 3 Oxygen Saturation [94-100 %] 98 % (04/01/22 6:06 PM) 98 % (04/01/22 5:00 PM) 96 % (04/01/22 3:52 PM) Pulse Rate [55-90 bpm] 53 bpm *L* (04/01/22 6:06 PM) 54 bpm *L* (04/01/22 5:00 PM) 61 bpm (04/01/22 3:52 PM) Blood Pressure [90-138/55-84 mm Hg] 132/68mm Hg (04/01/22 6:06 PM) 135/66mm Hg (04/01/22 5:00 PM) 150/92mm Hg *H* (04/01/22 3:52 PM) Respiratory Rate [16-30 br/min] 18 br/min (04/01/22 6:06 PM) 18 br/min (04/01/22 5:00 PM) 19 br/min (04/01/22 3:52 PM) Temperature [96.8-100.4 DegF] 97.7 DegF (04/01/22 3:52 PM) 97.8 DegF (04/01/22 11:52 AM) Mode of Delivery (Oxygen) Room air (04/01/22 6:06 PM) Room air (04/01/22 5:00 PM) Room air (04/01/22 3:52 PM) Blood pressure sites Arm, left (04/01/22 6:06 PM) Arm, left (04/01/22 5:00 PM) Arm, left (04/01/22 3:52 PM) Temperature Route Oral (04/01/22 3:52 PM) Oral (04/01/22 11:52 AM) Social History Social History Type Response Tobacco Use: pt denies. Sex
--- OUTSIDE RECORDS SUMMARY | 2024-02-09 10:55 | XMS_ITS | Continuity of Care Document ---
Author Organization [facility] ter Address [address] [place] [address]- Care Team Providers Care Alternative Medicine Practitioner Name Role Phone Pedro Burnett DO Primary Care Physician Encounter [facility] [place] Date(s): 04/27/22 - 04/28/[address] [address]- Encounter Diagnosis Hypokalemia(Final) - 04/27/22 Discharge Disposition: A-D/C Home Attending Physician: Kathy Shirley MD Admitting Physician: Marcelina Koenig DO Referring Physician: Not on Staff, Referring [...] Refills, Maintenance, 04/11/22 9:49:00 EDT, EC Tablet, [facility]/pharmacy #[id number], Partial fill upon patient request if the prescription is for a schedule IIopioid drug., 155, cm, 04/11/22 7:33:00 EDT, Height... Start Date: 04/11/22 Status: Ordered bisoprolol 5 mg oral tablet 1.5 tablet, By Mouth, Daily, # 135 tablet, 1 Refills, [id number], 155, cm, 04/12/22 7:39:00 EDT, Height, 64.5, kg, 04/05/22 6:59:00 EDT, Dry Weight Start Date: 04/12/22 Status: Ordered Chem 7 Chem 7, See Instructions, # 1 each, Refills 0, Tot. Refills 0, Maintenance, please get blood work on 04/29/22 and send results tp PCP to monitor K, 04/28/22 9:47:00 EDT, Supply Start Date: 04/28/22 Status: Ordered Docusate Sodium Capsule 100 mg, 1, capsule, By Mouth, 2 times a day, Refills 0, Maintenance, 04/11/22 9:50:00 EDT, Partial fill upon patient request if the prescription is for a schedule II opioid drug. Start Date: 04/11/22 Status: Ordered ezetimibe-simvastatin 10 mg-80 mg oral tablet 1 tablet, By Mouth, Daily, # 90 tablet, 1 Refills, 04/11/22 9:49:00 EDT, [facility]/pharmacy #[id number], 90, 1 tablet By Mouth Daily, 155, cm, 04/11/22 7:33:00 EDT, Height, 64.5, kg, 04/05/22 6:59:00 EDT, Dry Weight Start Date: 04/11/22 Status: Ordered felodipine 2.5 mg oral tablet, extended release 1 tablet = 2.5 mg, By Mouth, Daily at supper, # 30 tablet, 0 Refills, Maintenance, 04/11/22 9:49:00EDT, ER Tablet, [facility]/pharmacy #[id number], Partial fill upon patient request if the prescription is for a schedule II opioid drug., 155, cm, 04/11/22 7:33:00... Start Date: 04/11/22 Status: Ordered furosemide 20 mg oral tablet 20 mg, 1, tablet, By Mouth, Daily, # 90 tablet, Refills 0, Tot. Refills 0, Maintenance, 04/23/22 6:06:00 EDT, Route to Pharmacy Electronically, [facility]/pharmacy #[id number], Partial fill upon patient request if the prescription is for a schedule II opioid drug.... Start Date: 04/23/22 Status: Ordered gabapentin 300 mg oral capsule 300 mg, 1, capsule, By Mouth, Daily at bedtime, # 30 capsule, Refills 0, Tot. Refills 0, Maintenance, 04/11/22 9:49:00 EDT, Route to Pharmacy Electronically, [facility]/pharmacy #[id number], Partial fill upon patient request if the prescription is for a schedule I... Start Date: 04/11/22 Status: Ordered levothyroxine 0.05 mg oral tablet 1 tablet = 50 mcg, By Mouth, Daily, # 90 tablet, 0 Refills, Maintenance, 04/23/22 5:26:00 EDT, Tablet, [facility]/pharmacy #[id number], Partial fill upon patient request if the prescription is for a schedule II opioid drug., 155, cm, 04/13/22 15:46:00 EDT, Height,... Start Date: 04/23/22 Status: Ordered Potassium Chloride (Eqv-K-Tab) 10 mEq oral tablet, extended release 1 tablet = 10 mEq, By Mouth, Daily, # 14 tablet, 0 Refills, Maintenance, 04/28/22 10:54:00 EDT, [facility]/pharmacy #[id number], Partial fill upon patient request if the prescription is for a schedule II opioid drug., 155, cm, 04/27/22 13:38:00 EDT, Height, 64.5,... Start Date: 04/28/22 Stop Date: 05/12/22 Status: Ordered Senna 8.6 mg oral tablet 17.2 mg, 2, tablet, By Mouth, Daily at bedtime, Refills 0, Maintenance, 04/11/22 9:50:00 EDT, Tablet, Partial fill upon patient request if the prescription is for a schedule II opioid drug. Start Date: 04/11/22 Status: Ordered traZODone 100 mg oral tablet 1, tablet, By Mouth, Daily at bedtime, # 90 tablet, Refills 1, Tot. Refills 1, 04/11/22 9:49:00 EDT, Route to Pharmacy Electronically, [facility]/pharmacy #[id number], 155, cm, 04/11/22 7:33:00 EDT, Height, 64.5,kg, 04/05/22 6:59:00 EDT, Dry Weight Start Date: 04/11/22 Status: Ordered Vitamin D3 1000 intl units oral capsule 1 capsule = 25 mcg, By Mouth, Daily, # 30 capsule, 0 Refills, Maintenance, 04/11/22 9:49:00 EDT, Capsule, [facility]/pharmacy #[id number], Partial fill upon patient request [...] by Discern Expert 3Djaky Ruelas 4DrDina Ruelas-2008 [place] 6-Brachytherpy and bicalutamide - neg 6treated with folic acid Vital Signs Most recent to oldest [Reference Range]: 1 2 3 Oxygen Saturation [94-100 %] 96 % (04/28/22 12:33 PM) 98 % (04/28/22 8:56 AM) 99 % (04/28/22 7:02 AM) Pulse Rate [55-90 bpm] 65 bpm (04/28/22 12:33 PM) 59 bpm (04/28/22 8:56 AM) 78 bpm (04/28/22 7:02 AM) Blood Pressure [90-138/55-84 mm Hg] 122/52mm Hg (04/28/22 12:33 PM) 129/61mm Hg (04/28/22 8:56 AM) 121/53mm Hg (04/28/22 7:02 AM) Respiratory Rate [16-30 br/min] 16 br/min (04/28/22 12:33 PM) 18 br/min (04/28/22 8:56 AM) 18 br/min (04/28/22 7:02 AM) Temperature [96.8-100.4 DegF] 98.2 DegF (04/28/22 12:33 PM) 98.2 DegF (04/28/22 7:02 AM) 98.7 DegF (04/28/22 3:02 AM) Mode of Delivery (Oxygen) Room air (04/28/22 12:33 PM) Room air (04/28/22 8:56 AM) Room air (04/28/22 7:02 AM) Blood pressure sites Arm, left (04/28/22 12:33 PM) Arm, left (04/28/22 8:56 AM) Arm, left (04/28/22 7:02 AM) Temperature Route Oral (04/28/22 12:33 PM) Oral (04/28/22 7:02 AM) Oral (04/28/22 3:02 AM) Social History Social History Type Response Tobacco Use: pt denies. Sex Care Team Personnel Name: Pedro Burnett DO Address: [address] [place] [address] [place] [address]-
--- OUTSIDE RECORDS SUMMARY | 2024-02-09 10:55 | XMS_ITS | Continuity of Care Document ---
Author Organization [facility] Address [address] [place] [address]- Care Team Providers Care Warehouser Name Role Phone Pedro Burnett DO Primary Care Physician Encounter 12/23/22 - 03/01/[address] [facility] [address], [address] [place] [address]- Attending Physician: Pedro Burnett DO Admitting Physician: Pedro Burnett DO Referring Physician: Pedro Burnett DO Allergies, Adverse Reactions, Alerts No Known Allergies Immunizations Given and Recorded Vaccine Date Status Refusal Reason [id number] bivalent booster vax 10/01/22 Recorded influenza virus [...] 135 tablet, 1 Refills, 12/02/22 12:22:00 EDT, [facility]/pharmacy #[id number], 155, cm, 03/31/23 14:21:00 EDT, Height, 63, kg, 11/25/22 14:21:00 EDT, Dry Weight Start Date: 12/02/22 Status: Ordered ezetimibe-simvastatin 10 mg-80 mg oral tablet 1 tablet, By Mouth, Daily, # 90 tablet, 0 Refills, Maintenance, 12/06/22 14:19:00 EDT, Tablet, [id number], Partial fill upon patient request if the prescription is for a schedule II opioid drug., 1 tablet By Mouth Daily, 155, cm, 12/06/22 12:4... Start Date: 12/06/22 Status: Ordered furosemide 20 mg oral tablet 1, tablet, By Mouth, Daily, # 90 tablet, Refills 0, Maintenance, 07/20/22 6:51:00 EST, Route to [facility]acy Electronically, [id number], 155, cm, 05/11/22 10:19:00 EDT, Height, 64.5, kg, 04/05/22 6:59:00 EDT, Dry Weight Start Date: 07/20/22 Status: Ordered Klor-Con M20 20 mEq oral tablet, extended release 1 tablet, By Mouth, Daily, # 90 tablet, 0 Refills, Maintenance, 12/02/22 12:52:00 EDT, [id number], 155, cm, 11/25/22 14:21:00 EDT, Height, 63, kg, 11/25/22 14:21:00 EDT, Dry Weight Start Date: 12/02/22 Status: Ordered levothyroxine 0.05 mg oral tablet 1 tablet, By Mouth, Daily, # 90 tablet, 1 Refills, Maintenance, 01/21/23 22:15:00 EDT, [id number], 155, cm, 01/12/23 11:03:00 EDT, Height, 62, kg, 12/04/22 18:01:00 EDT, Dry Weight Start Date: 01/21/23 Status: Ordered traZODone 100 mg oral tablet 1, tablet, By Mouth, Daily at bedtime, # 30 tablet, Refills 0, Maintenance, 02/02/23 17:21:00 EDT, Route to Pharmacy Electronically, [id number], 155, cm, 01/27/23 14:07:00 EDT, Height, 62, kg, 12/04/22 18:01:00 EDT, Dry Weight Start Date: 02/02/23 Status: Ordered Problem List Condition Confirmation Course [...] by Discern Expert Betito Ruelas 3DrDina Ruelas-2008 [place] 6-Brachytherpy and bicalutamide [...] Safety Implantable Status Assigning Authority Unknown Unknown [id number] Unknown 02/22/25 Unknown Unknown Active Unknown Patient Care team information Care Team Personnel Name: Nayely Adams RN Position: [facility] RN Member Role: Primary Care Nurse Name: Royce Awad MD Position: [facility] Renal MD Member Role: Lifetime Consulting Physician Address: Address: [address] [place] [address], [place] [address]- Name: Letty Castelan RN Position: [facility] RN Member Role: Primary Care Nurse Name: Kristal Soliman Position: S RN Member Role: Primary Care Nurse Name: Pedro Burnett DO Position: [facility] Physician - Primary Care Member Role: PCP Address: Address: [address] [place] [address] [place] [address]- Name: Eduardo VELASQUEZ, Kristofer Position: [facility] Renal MD Member Role: Lifetime Consulting Physician Address: Address: [address] [facility] [address] [facility] [place] [address]- Care Team Related Persons Name: LETICIA CHAN Address: home [address] [place] [address] Name: CHAVEZ BERKOWITZ
--- OUTSIDE RECORDS SUMMARY | 2024-02-09 10:55 | XMS_ITS | Continuity of Care Document ---
Author Organization [facility] Address [address] [facility] [place] [address]- Care Team Providers Care Clinical Nurse Occupational Medicine Name Role Phone Pedro Burnett DO Primary Care Physician Encounter 06/21/22 - 06/28/22 [facility] [address] [facility], [address] [place] [address]- Attending Physician: Pedro Burnett DO Admitting Physician: [...] Maintenance, 04/11/22 9:49:00 EDT, EC Tablet, [id number], Partial fill upon patient request if the prescription is for a schedule IIopioid drug., 155, cm, 04/11/22 7:33:00 EDT, Height... Start Date: 04/11/22 Status: Ordered bisoprolol 5 mg oral tablet 1.5 tablet, By Mouth, Daily, # 135 tablet, 1 Refills, [facility], 155, cm, 04/12/22 7:39:00 EDT, Height, 64.5, [...] 90 tablet, 1 Refills, 04/11/22 9:49:00 EDT, [facility]/pharmacy #[id number], 90, 1 tablet By Mouth Daily, 155, cm, 04/11/22 7:33:00 EDT, Height, 64.5, kg, 04/05/22 6:59:00 EDT, Dry Weight Start Date: 04/11/22 Status: Ordered felodipine 2.5 mg oral tablet, extended release 1 tablet = 2.5 mg, By Mouth, Daily at supper, # 30 tablet, 0 Refills, Maintenance, 04/11/22 9:49:00EDT, ER Tablet, [facility]/pharmacy #0859, Partial fill upon patient request if the prescription is for a schedule II opioid drug., 155, cm, 04/11/22 7:33:00... Start Date: 04/11/22 Status: Ordered furosemide 20 mg oral tablet 20 mg, 1, tablet, By Mouth, Daily, # 90 tablet, Refills 0, Tot. Refills 0, Maintenance, 04/23/22 6:06:00 EDT, Route to Pharmacy Electronically, [facility]/pharmacy #[id number], Partial fill upon patient request if the prescription is for a schedule II opioid drug.... Start Date: 04/23/22 Status: Ordered levothyroxine 0.05 mg oral tablet 1 tablet = 50 mcg, By Mouth, Daily, # 90 tablet, 0 Refills, Maintenance, 04/23/22 5:26:00 EDT, Tablet, [facility]/pharmacy #0859, Partial fill upon patient request if the prescription is for a schedule II opioid drug., 155, cm, 04/13/22 15:46:00 EDT, Height,... Start Date: 04/23/22 Status: Ordered traZODone 100 mg oral tablet 1, tablet, By Mouth, Daily at bedtime, # 90 tablet, Refills 1, Tot. Refills 1, 04/11/22 9:49:00 EDT, Route to Pharmacy Electronically, [facility]/pharmacy #[id number], 155, cm, 04/11/22 7:33:00 EDT, Height, 64.5,kg, 04/05/22 6:59:00 EDT, Dry Weight Start Date: 04/11/22 Status: Ordered Vitamin D3 1000 intl units oral capsule 1 capsule = 25 mcg, By Mouth, Daily, # 30 capsule, 0 Refills, Maintenance, 04/11/22 9:49:00 EDT, Capsule, [facility]/pharmacy #0859, Partial fill upon patient request if [...] 2Problem added by Discern Expert 3Djaky Ruelas 4Dr. Ruelas-2009 [place] 6-Brachytherpy and bicalutamide - neg 6treated with folic acid Social History Social History Type Response Tobacco Use: pt denies. Sex Patient Care team information Personnel Name: Pedro Burnett DO Address: Address: [address] [place] [address] Primary Care [place], [place] [address]
== END 2024-02-09 11:54 | disposition home or self-care (01) ==
LOC: HO.HUSH 10:53
PROVIDERS: PCP Family Medicine; Visit Provider Urology
DX: C65.9 Malignant neoplasm of unspecified renal pelvis (principal)
CPT/HCPCS: 99214

== ENCOUNTER → 2024-02-09 10:53 | Outpatient (BNVA) | payer MEDICARE, OTHER, SELFPAY | PROVIDERS: PCP Family Medicine; Visit Provider Urology ==

== ENCOUNTER 2024-03-12 06:29 | Day surgery (SDC) | payer MEDICARE, OTHER, SELFPAY ==
[2024-03-12] VITALS (8 sets, daily range): BP systolic 114–141; BP diastolic 47–79; PULSE 45–96; RESP 15–18; TEMP 36.4–36.8; O2SAT 95–98; BMI 26.0
--- NOTE | ~2024-03-12 | CT_ITS ---
83-year-old man with a right renal pelvis mass. Urology requests a biopsy PROCEDURES: 1. Limited preprocedure CT of the abdomen. Permanent images saved in PACS. 2. CT-guided right renal pelvis mass. 3. Limited post procedure CT of the abdomen. Permanent images saved in PACS. CLINICIANS: Ashkan Patton PA-C MEDICATIONS: -Versed 0.5 mg, Fentanyl 25 mcg, and lidocaine 1% 10 mL SQ -Antibiotics: None -For additional details, please see nursing flowsheet. COMPLICATIONS: None ESTIMATED BLOOD LOSS: < 5 ml CONTRAST: 75 mL Omnipaque 350 SPECIMENS: 3 x 20 g cores MODERATE SEDATION TIME: 28 min PROCEDURE NOTE: The procedure, risks, benefits, and alternatives were carefully explained to the patient and written informed consent was obtained. The patient was in the left lateral decubitus position on the CT table. A timeout was performed. A limited CT of the abdomen was performed to localize the right renal pelvis mass and choose appropriate needle entry and trajectory. The patient was prepped and draped in usual sterile fashion. The skin and deeper soft tissues were anesthetized with lidocaine. Under CT guidance, a 19 gague trocar needle was advanced to the right renal pelvis mass. A 20 gauge biopsy device was inserted through the trocar needle advanced into the mass. A total of 3, 20 gague cores were performed. The specimens were sent to pathology. The needle was removed. A post procedure CT was performed, which did not demonstrate any hemorrhage, or extravasation of contrast from the right ureter. A dry dressing was applied and secured with Tegaderm. There were no immediate complications. The patient was stable after the procedure and was transferred to the post anesthesia care unit. The procedure was done under moderate sedation with a dedicated nurse for monitoring of vital signs. CT/CT biopsy renal RT Impression: CT-guided right renal pelvis mass biopsy This procedure was performed by Ashkan Patton PA-C and supervised by Dr. Ahmadi.
[2024-03-12 07:16] LABS: Basophils Absolute Auto 0.1 X10*3/uL (0.0-0.2); Basophils Percent Auto 0.7 % (0-2); Eosinophils Absolute Auto 0.3 X10*3/uL (0.0-0.4); Eosinophils Percent Auto 3.9 % (0-4); Hematocrit 44.5 % (42.0-52.0); Hemoglobin 15.3 g/dl (14.0-18.0); Imm Gran Abs Auto 0.03 X10*3/uL (0.00-0.03); Imm Gran Pct Auto 0.3 % (0.0-0.4); Lymphocytes Absolute Auto 2.9 X10*3/uL (1.2-4.9); Lymphocytes Percent Auto 33.1 % (20-40); MANUAL DIFF FLAG SCAN; Mean Corpuscular HGB Conc 34.4 g/dl (31.0-36.0); Mean Corpuscular Hemoglobin 32.3 pg (27.0-33.0); Mean Corpuscular Volume 93.9 fL (80.0-98.0); Mean Platelet Volume 9.6 fL (9.4-12.4); Monocytes Absolute Auto 0.8 X10*3/uL (0.1-1.2); Monocytes Percent Auto 9.4 % (2-11); Neutrophils Absolute Auto 4.6 x10*3/uL (2.0-8.3); Neutrophils Percent Auto 52.6 % (45-73); Platelet Count 171 X10*3/uL (160-400); Red Blood Count 4.74 X10*6/uL (4.60-5.80); Red Cell Distribution Width 13.1 % (11.0-16.0); SCAN SMEAR FLAG 1; White Blood Count 8.8 X10*3/uL (4.8-10.8)
[2024-03-12 07:28] LABS: Partial Thromboplastin Time 31.5 SEC (26.0-36.8)
[2024-03-12 07:29] LABS: INTERNATIONAL NORM RATIO 0.9 (0.9-1.1); Prothrombin Time 10.5 SEC (11.1-13.3)
[2024-03-12 07:43] LABS: Creatinine Clr Calc Pharmacy 29.9; Estimated Glomerular Filt Rate 50; SLIDE REVIEW VERIFIED
--- NOTE | 2024-03-12 08:30 | MHC.SHP ---
Pre-Procedural Eval Section A - 24 Hr Update-Section A only Date of Service: 03/12/24 Section B - Complete if H&P > 30 days Chief Complaint: RENAL RIGHT,MALIGNANT NEOPLASM RENAL/PELVIS Details of Present Illness: 83 y/o man with hx prostate cancer who presents with a right renal pelvis mass Relevant Family History (Specify if Yes): No Relevant Social History: None Present Medications: see Short Stay Collaborative assessment Medical History: Significant History (prostate ca) History of Previous Operations: No relevant previous surgery Allergies: Allergies Allergy/AdvReac Type Severity Reaction Status Date / Time No Known Allergies Allergy Verified 03/12/24 06:57 [No Known Allergies*] Review of Systems Sugical H&P ROS: Negative: Cardiovascular, Respiratory, Neurological and Gastrointestinal Exam Surgical H&P Exam: Normal: Heart, Normal: Lungs, Normal: Abdomen, Normal: Skin and Normal: Neurological Plan CT biopsy of right renal pelvis mass Time Spent With Patient Time: Total time managing care of this patient today ____ minutes.
== END 2024-03-12 11:54 | disposition home or self-care (01) ==
PROVIDERS: Pathology Anatomic Pathology & Clinical Pathology; Physician Assistant Surgical; Radiology Vascular & Interventional Radiology; PCP Family Medicine; Visit Provider Urology
DX: C65.9 Malignant neoplasm of unspecified renal pelvis (principal); C61 Malignant neoplasm of prostate; N40.1 Benign prostatic hyperplasia with lower urinary tract symptoms; N13.0 Hydronephrosis with ureteropelvic junction obstruction; N32.89 Other specified disorders of bladder; I10 Essential (primary) hypertension; E78.5 Hyperlipidemia, unspecified; R79.83 Abnormal findings of blood amino-acid level; I47.10 Supraventricular tachycardia, unspecified
CPT/HCPCS: 36415; 50200; 77012; 81261; 81264; 82565; 85025; 85610; 85730; 86850; 86900; 86901; 88304; 88305; 88341; 88342; 88360; 99152; J1170; J2250; J2310; J3010

== ENCOUNTER → 2024-03-12 08:42 | Outpatient (BNV) | payer MEDICARE, OTHER, SELFPAY | PROVIDERS: PCP Family Medicine; Visit Provider Physician Assistant Surgical | DX: C65.1 Malignant neoplasm of right renal pelvis (principal) | CPT/HCPCS: 50200; 77012 ==

== ENCOUNTER → 2024-04-03 14:39 | Outpatient (BNV) | payer MEDICARE, OTHER, SELFPAY | PROVIDERS: PCP Family Medicine; Referring Provider Urology; Visit Provider Internal Medicine | DX: C85.90 Non-Hodgkin lymphoma, unspecified, unspecified site (principal) | CPT/HCPCS: 99204; 99214; G2211 ==

== ENCOUNTER 2024-04-10 10:56 | Outpatient (AMB) | payer MEDICARE, OTHER, SELFPAY ==
--- NOTE | 2024-04-10 10:57 | A.OFFVIS_ITS ---
Intake Visit Reasons: 1m/CT biopsy Intake Note: Patient is Present for Telephone Follow Up For CT Biopsy Urology Med:None Antibiotic Allergy:None Blood Thinner:none Executive Personal Assistant Required: No Allergies No Known Allergies [No Known Allergies*] Allergy (Verified 04/03/24 15:07) Medication List - Last Reconciled 04/10/24 by Art Ruelas MD bisoprolol fumarate 7.5 mg PO DAILY ezetimibe-simvastatin 10-80 mg 10 tabs PO DAILY felodipine ER 2.5 mg PO BEDTIME furosemide 20 mg PO DAILY levothyroxine 50 mcg PO DAILY potassium chloride ER 20 mEq PO DAILY trazodone 100 mg PO BEDTIME HPI Comments Details: Dontae is a very pleasant male. He is a patient of Dr. Burnett. 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 Hydronephrosis was diagnosed through routine imaging. - left side Anatomic imaging findings include 06/13 , US with mild , on the left, hydronephrosis - bilateral cyst. Functional imaging 07/14 , with diuretic renogram - L 25%:R 75% - delayed left 01/12 , with diuretic renogram - L 25%: R 75% - no delay 10/16 , with diuretic renogram - L 23% - no delay. Laboratory results 03/13 , Creatinine 1.3 10/15 , Creatinine 1.6 01/12 Creatinine 1.5 10/16 Cr 1.45. Discussion Continue with surveillance and intervention only for change in renal status. Prostate cancer: Low-grade brachytherapy 2009 PSA well controlled Minimal symptoms Good urination. Prostate cancer was diagnosed late [address] Muñoz.. Diagnosis was reached by needle biopsy, for elevated PSA, PSA at diagnosis 8.9, size at TRUS 45gm. The Nela grade is 3+3 = 6. TNM Classification of Malignant Tumours (TNM) T1c. The D'Ana (NCCN) risk category is Low Risk (PSA< 10, Gl < 7, T1c). Initial therapy included Primary treatment, Brachytherapy and bicalutamide , Additional treatment, Observation. Recent labs included a PSA (prostate-specific antigen) 03/11 -.2, 10/13 0.2, 04/12 0.2, 10/14 0.1, 04/14 0.1, 12/16 0.1, 12/17 <0.1, 12/18 <0.1, 12/19 <0.1 Therapeutic plan: Continue with surveillance PSA and imaging for monitoring PFSH Medical History SVT (supraventricular tachycardia) Homocysteinemia Glaucoma HTN (hypertension) Hyperlipidemia Bladder spasm UPJ (ureteropelvic junction) obstruction Unspecified hydronephrosis Benign prostatic hyperplasia with lower urinary tract symptoms Prostate cancer Surgical History Hx of cystoscopy Hx of colonoscopy Hx of inguinal hernia repair History of surgery Social History Household Members: None and Other Patient Tobacco Use Status: Never used Tobacco service: No Current occupational status: retired Review of Systems Const All systems reviewed & are unremarkable except as noted in HPI and below Reports no additional complaints Resp Reports no additional complaints GI Reports no additional complaints Reports as per HPI Musc Reports no additional complaints Physical Exam Telemedicine evaluation Appropriate responses Regular breathing rate and rhythm HEENT Head: Yes normal to inspection Ears: hearing grossly normal bilaterally Eyes General: appearance normal, both eyes and all related structures Neck Neck: Yes normal visual inspection Chest Chest palpation & inspection: normal inspection of the chest Resp Effort & Inspection: normal respiratory effort and able to speak in complete sentences Telehealth Telehealth Telehealth Platform: [facility] Location of provider rendering services: practice address Location of patient: address on file Patient Identification confirmed using: Name, : Yes Telehealth method: video Patient verbally consented to treatment: Yes Patient verbally consented to billing insurance company: Yes Patient informed of any privacy concerns related to visit: Yes Minutes spent on Phone/Video with Pt.: 15 Assessment & Plan Assessment & Plan (1) Lymphoma: Code(s): C85.90 - Non-Hodgkin lymphoma, unspecified, unspecified site Category: Medical (2) Prostate cancer: Code(s): C61 - Malignant neoplasm of prostate Category: Medical Plan Lymphoma under management with hematology 8 month follow-up PSA for prostate cancer Orders: Orders Prostate Specific Antigen 8 Months C61 - Malignant neoplasm of prostate Patient Instructions: Imaging studies, laboratory and physical exam results were discussed and reviewed in detail. No major barriers to patient understanding were identified. An opportunity to ask questions regarding the treatment plan was provided. All questions were answered. The patient expressed understanding and agreement with the above treatment plan. The patient is aware they should contact our office by phone for worsening of their current condition or the appearance of new urologic symptoms. Compliance is encouraged with any medications and followup testing that is ordered. It is a privilege to participate in the urologic care of your patient. If you have any questions or concerns regarding treatment for the above conditions, or other urologic issues, please do not hesitate to contact me. The office telephone contact is [phone]. This note is constructed using voice recognition software. While every effort has been made to ensure accuracy direct service provider errors may have been included. Yours sincerely, Dr Art Ruelas MD, [facility] - Urology Providers of Expert, Compassionate Care for the Genitourinary System Coding Level of Care Code Tele Est Pt Level 3 (37951) Diagnoses Lymphoma C85.90 Prostate cancer C61
== END 2024-04-10 11:31 | disposition home or self-care (01) ==
LOC: HO.HUSH 10:56
PROVIDERS: PCP Family Medicine; Visit Provider Urology
DX: C85.90 Non-Hodgkin lymphoma, unspecified, unspecified site (principal); C61 Malignant neoplasm of prostate
CPT/HCPCS: 99213

== ENCOUNTER → 2024-04-10 10:56 | Outpatient (BNVA) | payer MEDICARE, OTHER, SELFPAY | PROVIDERS: PCP Family Medicine; Visit Provider Urology ==

== ENCOUNTER 2024-08-15 10:29 | Outpatient (REF) | payer MEDICARE, OTHER, SELFPAY ==
--- NOTE | ~2024-08-15 | US_ITS ---
EXAMINATION: US RETROPERITONEAL LIMITED (RENAL ONLY) CLINICAL INFORMATION: Rising BUN/creatinine. Evaluate for hydronephrosis. History of known right renal pelvic mass status post biopsy 03/12/2024. Pathology revealed Hodgkin's lymphoma. COMPARISON: CT guided renal biopsy 03/12/2024. CT urogram 01/23/2024. MR abdomen 11/30/2023. Renal ultrasound 11/02/2022. TECHNIQUE: Real-time imaging of the kidneys. FINDINGS: RIGHT KIDNEY: 10.6 x 4.7 x 5.4 cm (SAG x AP x TRV). There are several cysts present, the largest in the midpole laterally measuring 3.4 x 2.5 x 3.4 cm. There is a small amount of specular debris in 2 mid pole medial and lateral cysts. Partially cystic irregular mass in the lower renal pelvis extending into the parenchyma measuring 3.0 x 2.1 x 2.3 cm (This measured 2.9 x 1.9 x [address] exam). Findings consistent with biopsy-proven Hodgkin's lymphoma, likely undergoing some degree of necrosis from treatment. Renal cortical thickness is normal. No renal calculi or hydronephrosis. LEFT KIDNEY: 8.9 x 3.8 x 4.3 cm (SAG x AP x TRV). There are 2 simple upper pole cysts measuring up to 1.5 cm. There is mild diffuse renal cortical thinning, with increased echogenicity, most predominantly involving the upper pole cortex. No masses, renal calculi or hydronephrosis. US/US renal BI IMPRESSION: 1. Biopsy-proven partially cystic irregular mass in the lower renal pelvis extending into the parenchyma measuring 3.0 x 2.1 x 2.3 cm, measuring 2.9 x 1.9 x 3.[address] exam. Partially cystic component may indicate some degree of necrosis/ post treatment-related change. Follow-up on postcontrast CT exam would be more appropriate to assess for treatment-related change. 2. Mildly complex cysts the right kidney, benign. 3. No hydronephrosis or calculi either kidney. 4. Mild diffuse cortical thinning left kidney predominantly upper pole. Electronically signed by: Roman Ty MD 08/16/2024 10:56 AM [facility]
--- OUTSIDE RECORDS SUMMARY | 2024-08-15 10:32 | XMS_ITS ---
Author Name [facility] Organization Unknown History of Medication Use Medication Directions Dispensed Refills Start Date End Date Stat melatonin 3 MG Tab tablet Take 10 mg by mouth nightly. 05/19/2024 active traZODone (DESYREL) 100 MG tablet Take 1 tablet (100 mg total) by mouth nightly. 05/27/2022 active felodipine (PLENDIL) 2.5 MG 24 hr tablet Take 2.5 mg by mouth daily. 05/27/2022 aborted potassium chloride (KLOR-CON M10) 10 MEQ tablet Take 10 mEq by mouth daily. Swallow tablet whole; do not crush 05/27/2022 aborted levothyroxine (SYNTHROID, LEVOTHROID) 50 MCG tablet Take 1 tablet (50 mcg total) by mouth daily on an empty stomach. 05/27/2022 active Vitamin D3 (CHOLECALCIFEROL) 50 MCG (2000 UT) tablet Take 1 tablet (2,000 Units total) by mouth daily. 05/27/2022 active potassium chloride (KLOR-CON M20) 20 MEQ tablet Take 1 tablet (20 mEq total) by mouth daily. Swallow whole, do not crush. Take with food 07/03/2022 active L-Tryptophan 500 MG Cap Take by mouth. 05/27/2022 aborted olsalazine (DIPENTUM) 250 MG capsule Take 500 mg by mouth 2 (two) times a day. 05/27/2022 aborted furosemide (LASIX) 20 MG tablet Take 2 tablets (40 mg total) by mouth daily. Pt taking 20 mg daily 05/27/2022 active Magnesium Oxide 250 MG Tab tablet Take 1 tablet (250 mg total) by mouth daily. Take 2 hours apart from other medications; take with food 05/27/2022 aborted bisoprolol (ZEBeta) 5 MG tablet Take 1.5 tablets (7.5 mg total) by mouth daily. 05/27/2022 active ezetimibe-simvastatin (VYTORIN) 10-80 MG per tablet Take 1 tablet by mouth nightly. 05/27/2022 active melatonin 3 MG Tab tablet Take 1 tablet (3 mg total) by mouth nightly. 05/27/2022 active aspirin 81 MG chewable tablet Chew 1 tablet (81 mg total) daily. 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
== END 2024-08-15 10:30 | disposition home or self-care (01) ==
LOC: HO.US 10:29
PROVIDERS: PCP Family Medicine; Visit Provider Internal Medicine
DX: C65.9 Malignant neoplasm of unspecified renal pelvis (principal)
CPT/HCPCS: 76775

== ENCOUNTER → 2024-08-15 10:31 | Outpatient (BNV) | payer MEDICARE, OTHER, SELFPAY | PROVIDERS: PCP Family Medicine; Visit Provider Radiology Diagnostic Radiology | DX: C81.96 Hodgkin lymphoma, unspecified, intrapelvic lymph nodes (principal) | CPT/HCPCS: 76775 ==

== ENCOUNTER 2024-12-10 11:19 | Outpatient (AMB) | payer MEDICARE, OTHER, SELFPAY ==
--- NOTE | 2024-12-10 11:21 | A.OFFVIS_ITS ---
Intake Visit Reasons: 8m/PSA Intake Note: Patient is present for 8M/PSA Urology Medication:POTASSIUM CHLORIDE Antibiotic Allergy:NONE Blood Thinner:NONE Focusing Machine Operator Required: No Allergies No Known Allergies [No Known Allergies*] Allergy (Verified 12/10/24 11:22) HPI Comments Details: Dontae is a very pleasant male. He is a patient of Dr. Burnett. He is seen for the following urologic conditions - lower urinary tract symptoms - prostate cancer - lymphoma of right renal pelvic area Eight month follow-up PSA stable Creatinine remained stable Will follow in 12 months Nephrology - Dr Rod Right renal pelvis mass - lymphoma - managed with Dr. Daniel Negative ureteroscopy Negative cytology, no blood in urine 01/18 MRI 4.5 cm mass within the right renal pelvis CT-guided biopsy positive lymphoma Hydronephrosis/Hydroureter: Stable Creatinine. Hydronephrosis was diagnosed through routine imaging. - left side Anatomic imaging findings include 06/13 , US with mild , on the left, hydronephrosis - bilateral cyst. Functional imaging 07/14 , with diuretic renogram - L 25%:R 75% - delayed left 01/12 , with diuretic renogram - L 25%: R 75% - no delay 10/16 , with diuretic renogram - L 23% - no delay. Laboratory results 03/13 , Creatinine 1.3 10/15 , Creatinine 1.6 01/12 Creatinine 1.5 10/16 Cr 1.45. Discussion Continue with surveillance and intervention only for change in renal status. Prostate cancer: Low-grade brachytherapy 2009 PSA well controlled Minimal symptoms Good urination. Prostate cancer was diagnosed late [address] Muñoz.. Diagnosis was reached by needle biopsy, for elevated PSA, PSA at diagnosis 8.9, size at TRUS 45gm. The Nela grade is 3+3 = 6. TNM Classification of Malignant Tumours (TNM) T1c. The D'Ana (NCCN) risk category is Low Risk (PSA< 10, Gl < 7, T1c). Initial therapy included Primary treatment, Brachytherapy and bicalutamide , Additional treatment, Observation. Recent labs included a PSA (prostate-specific antigen) 03/11 -.2, 10/13 0.2, 04/12 0.2, 10/14 0.1, 04/14 0.1, 12/16 0.1, 12/17 <0.1, 12/18 <0.1, 12/19 <0.1 Therapeutic plan: Continue with surveillance PSA and imaging for monitoring [facility] Medical History (Updated 12/10/24 @ 11:49 by Art Ruelas MD) Malignant neoplasm of unspecified renal pelvis SVT (supraventricular tachycardia) Homocysteinemia Glaucoma HTN (hypertension) Hyperlipidemia Bladder spasm UPJ (ureteropelvic junction) obstruction Unspecified hydronephrosis Benign prostatic hyperplasia with lower urinary tract symptoms Prostate cancer Surgical History Hx of cystoscopy Hx of colonoscopy Hx of inguinal hernia repair History of surgery Social History Household Members: None and Other Patient Tobacco Use Status: Never used Tobacco service: No Current occupational status: retired Review of Systems Const Denies chills and Denies fever(s) Card Reports no additional complaints and Denies syncope Resp Denies cough GI Denies abdominal pain and Denies heartburn Reports as per HPI and Denies change in libido Neuro Denies syncope Psych Denies change in libido Endo Denies change in libido Physical Exam Const General: cooperative, healthy appearing, comfortable and no acute distress Orientation/consciousness: patient oriented x3 HEENT Face and sinus: Yes normal facial exam Mouth: moist mucous membranes Neck Neck: Yes normal visual inspection, Yes full ROM and Yes trachea midline Chest Chest palpation & inspection: normal inspection of the chest Resp Effort & Inspection: normal respiratory effort, able to speak in complete sentences and no respiratory distress GI Inspection: Yes normal to inspection Back/Spine/Pelvis Cervical Spine: normal cervical lordosis Thoracic/Lumbar Spine: thoracic and lumbar spine normal to inspection Skin General skin exam: no rashes or lesions noted Neuro General: patient oriented x3, gait normal, tone normal and moves all extremities Extrem General: Yes normal to inspection and Yes capillary refill normal Assessment & Plan Assessment & Plan (1) Prostate cancer: Code(s): C61 - Malignant neoplasm of prostate Category: Medical Plan Twelve month follow-up PSA office Orders: Orders Prostate Specific Antigen 12 Months C61 - Malignant neoplasm of prostate Patient Instructions: This note is constructed using voice recognition software. While every effort has been made to ensure accuracy hotel associate errors may have been included. Imaging studies, laboratory and physical exam results were discussed and reviewed in detail. No major barriers to patient understanding were identified. An opportunity to ask questions regarding the treatment plan was provided. All questions were answered. The patient expressed understanding and agreement with the above treatment plan. The patient is aware they should contact our office by phone for worsening of their current condition or the appearance of new urologic symptoms. Compliance is encouraged with any medications and followup testing that is ordered. It is a privilege to participate in the urologic care of your patient. If you have any questions or concerns regarding treatment for the above conditions, or other urologic issues, please do not hesitate to contact me. The office telephone contact is [phone]. Sincerely, Dr Art Ruelas MD, [facility] - Urology Compassionate Specialist Care for the Genitourinary System Coding Level of Care Code Est Pt Level 4 (84151) Complex EM visit Add On G2211 Diagnoses Prostate cancer C61
--- OUTSIDE RECORDS SUMMARY | 2024-12-10 13:59 | XMS_ITS | Data Portability ---
Author Organization [place] [facility] Address [address] [place] [id number] Care Team Providers Care Patternmaker Sample Name Role Phone BILL HUMPHREY Primary Care Provider Assessment Encounter Date Assessment Date Assessment LastModified by Organization Details LastModified Time 04/22/2022 04/22/2022 Overview/History : 81 yo male who is new to and new to this provider with prostate cancer, laryngeal cancer, HTN, hyperlipidemia, kidney disease, and hashimotos being seen for swelling in the lower extremites bilaterally for at least the past three weeks Exam: NAD, pleasant and interactive, RRR, lungs CTA bilaterally, bilateral 2+ LE pitting edema to mid javier, 0.5cm healing abrasion on dorsal aspect of left great toe, no erythema, discharge, or pain to suggest secondary infection, no increased warmth with palp, sensation is intact in the toes, no calf pain with palp, no palpable cords Vital Signs:VSS DDx considered, but not limited to:venous insufficiency, CHF, DVT, cellulitis Work up/Results:exam Plan/Discussion:S uspect venous insufficiency exacerbated by discontinuing furosemide a month ago followed by decreased activity while in the hospital and rehab. Pt has restarted furosemide x 5 days and swelling has started to improve some. Will continue lasix and potassium supplement. Pt has tolerated this dose well in the past. Reviewed supportive care and importance of compression, walking, and elevation. Low suspicion for DVT given bilateral, no calf pain, neg homans, no palpable cords. Low suspicionf for CHF give no previous hx, no abnormal lungs sounds, no shortnes of breath. No erythema or increased warmth to suggest cellulitis. PT has several doctors visits coming up in the next few weeks where BP will be check. Reviewed last chemistry/renal function on PVIX completed on 04/11. eGFR75, electrolytes were normal In order to obtain further information and compare any laboratory results/values, I have accessed patient records on the [employer]. This information was pertinent in my medical decision making today. belen Not available 04/22/2022 16:31:25 05/16/2022 05/16/2022 Overview/History : 81 YOM known to but new to provider Being seen today for BL pedal and ankle edema, seemingly slightly worse over last couple of days. He has issue of this chronically. Being followed closely by PCP for this issue. He takes lasix 20 mg daily for this issue and he is taking his medicine as prescribed. He also reports compliance w/ mechanical measures such as avoiding salt, elevating legs, and wearing compressions stockings. He does not check weight daily however. He denies any severe pain, rapidly progressive edema, cp, sob, or numbness to his feet. His edema seems to worsen throughout the day and does wax and wane at times. Recently seen in ED to r/o blood clot w/ negative studies at that time. He had f/u with PCP 5 days ago for this issue and had BMP drawn w/ stable findings, Cr at baseline between 1.1-1.3, and stable lytes. Otherwise he is doing well. Again no cp, no weakness, no sob, no orthopnea, no severe pain, no abd pain, no NVD. Of note he does have a hx of spinal stenosis that he was followed by neurosurgery closely for. He trialled multiple modalities but they did sign off as he declined surgery at that time. He does have pins and needles feeling to his BLE that is not new, this has been ongoing for over a month and he has seen PCP and neurosurgery multiple times w/in this time frame. He does have documented diagnosis of cord compression (cauda equina) w/ strong recc from neurosurgery for surgical intervention but he declines this intervention at this time. He also states that at one point he believes the neurosurgeon told him he does not have cauda equina syndrome and that back surgery may make him worse . I do not see any documentation of that specifically in neuro surgery records but he is adamant that was said to him. Regardless none of his complaints are new and w/o discussion further w/ neurosurg there is nothing more that can truly be done at this time. He has been progressing well w/ PT it seems per records and per him and he has o red flag back pain sxs at this time denying any fever, midline back pain, flank pain, loss of bowel/bladder, any loss of sensation to BLE, progressive weakness, severe leg pain, saddle anesthesia. Other than the above he has no otehr acute concerns or c/o today. Exam: Vitals: VSS and afebrile Constitutional: 81 yo Well developed, well nourished, pleasant patient in no apparent distress. He is sitting upright comfortably at a chair in his kitchen, he is not toxic appearing. Eyes: PERRL at 4mm, EOM's intact, corrective lenses, No swelling, no discharge, sclera / conjunctiva clear ENT: no nasal discharge, no erythema/ exudate noted in oropharynx, moist mucous membranes CV: RRR, no rubs/ murmurs/ gallops heard, 2+ radial pulses bilaterally, 1-2+ BLE edema to feet and ankle BL, no redness/warmth, no calf tenderness BL, neg Danisha's sign, 2+ DP/ PT pulses bilaterally Pulm: breath sounds clear and equal bilaterally, no wheeze/ rhonchi or rales on auscultation. Speaks in full sentences, no increased work of breathing. GI: Soft, non-tender to palpation. No masses, normal bowel sounds. : No CVA tenderness bilaterally. No suprapubic tenderness. MS: Self ambulatory patient w/ his walker, no difficulty noted, moves all limbs without noticeable deficit, no evidence of trauma Neuro: No focal deficits, A&O x4, CN? s II-XII grossly normal, speech clear, no facial droop, equal strength to BL uper extremities, patient has very mild weakness noted to LLE which is known and is baseline w/ his f/u w/ neurosurgery, there is no fasciculations noted to the muscles and his gait is not ataxic. Reflexes are intact and symmetrical to BL LE. Skin: No rash, visible skin is cdi w/o color change redness/warmth, cyanosis or pallor. No wounds Psych: Calm, cooperative, non-manic. Pleasant. DDx considered, but not limited to: Lumbar Stenosis - known diagnosis, we discussed this briefly, see below for further discussion LE Edema - Present, mild, mostly to feet and ankles BL Cellulitis - no redness or warmth Compartment Syndrome - soft edema, no pain, palpable pulses and intact sensation DVT - BL equal edema, recent workup for clot while pt had same sxs negative at ED I can see this in pvix, no redness, no warmth, no dilated veins, no palpable cord, no calf tenderness Work up/Results: N/a - pt just had BMP less than 1 week ago that was benign, no need to repeat today; he will need repeat BMP after adjustment to lasix dose and assessment of that dose Plan/Discussion: BLE Edema: -Present, more of a chronic issue, he does think it is a bit worse over last couple of days and he has not seen the improvement he would've liked thus far -He has been following closely w/ PCP for this -He has no new cp, SOB, rapidly progressive edema -He has been taking 20 mg lasix daily for this issue as prescribed by PCP -Recent BMP stable -D/t fact his edema is slightly worse (1-2+ vs 1+ in PCP notes) and he reports ir has progressed some, shared decision making w/ patient to trial short course of increased furosemide for next couple of days. Again his last BMP (within last 5 days) is stable. He will take 20 mg in morning and 20 mg again in evening. He has enough doses to do this for rest of this week. I think this is an appropriate plan at this time. He is already on 20 mEq of KCl while on lasix, keep this dose the same. -Hopefully this will give him geoffrey erelief of his edema and prevent any progression -Currently his edema is confined to ankles and feet primarily and his lungs are CTAB. he has stable VS -He appears very well overall -Educated on importance of cont mechanical measures ie compression, elevation, avoiding salt and weighing self daily -He will f/u with PCP this week for f/u and if he cannot get in w/ them we have booked backup follow up for monday to reassess and repeat BMP -F/u emergently for any rapidly progressive edema, weight gain of > 2 lbs in 1 day or 5lb in 1 week, sob, chest pain, progressive pins and needles feeling (see below), weakness, diff ambulating, lethargy, change in color to LE -I did cortext PCP w/ brief impression and plan as stated above for easier follow up in case PCP see's him later this week, awaiting message back at this time. Lumbar Stenosis: -Known diagnosis and he has been followed closely by neurosurgery for this issue -? cauda equina based on MRI results, known by neuro surgery, and he has declined surgical intervention, he has been progressing well w/ PT at this point. -Neuro surg signed off unless he potentially thinks about surgical intervention moving forward, I suggested he think more about this today and still declining, he understands the risks and benefits of surgery at this time and still declines. He does have capapcity to make this decision -NO NEED FOR EMERGENT ESCALATION AT THIS TIME HE IS DECLINING EMERGENT/SURGICAL INTERVENTION FOR THIS ISSUE AT THIS MOMENT, HE WANTS TO CONT PT WHICH HE STATES IS GOING VERY WELL -He has no concerning red flag signs at this time and he knows to f/u emergently if any progression is noted -He is going to f/u with PCP and attempt to get second opinion from neurosurgery, I advocate for this -Neuro exam seems stable from last neuro surg note I can see in PVIX and pt states he is improving -F/u emergently for any new neuro sxs and progression Pt is on agreement and verbalizes understanding with the above plans at this time. Pt has no other questions or concerns at this time. All questiosn are answered to the best of my ability. Pt thanks us for our visit today. In order to obtain further information and compare any laboratory results/values, I have accessed patient records on the [employer] old pt records. This information was pertinent in my medical decision making today. [email or web address] Not available 05/16/2022 19:26:26 05/20/2022 05/20/2022 Overview/History : 81 yo m established with new to this provider has a PMH of HLD, HTN, CKD, hx prostate CA, and Maribel disease was seen by for BLE edema and his lasix was increased 20 mg/day. Here to evaluate edema and labs. He is monitoring weight daily, elevating his legs and watching sodium intake. Exam: General Appearance: non-toxic, well appearing, in no acute distress Mental Status: active and alert, follows commands appropriately Head: normocephalic Pulmonary: normal effort, no respiratory distress, no tachypnea, lungs sound clear to auscultation bilaterally Cardiovascular: RRR, no murmurs, no rubs, no gallops, distal pulses normal throughout, peripheral edema Pulses: dorsalis pedis bilateral 2+ Musculoskeletal moves all extremities normally, no deformity, AROM WNL, full and equal strength throughout Psychologic: Normal mood and affect. Skin: no rash, no lesions, no erythema, no warmth Vital Signs: VSS DDx considered, but not limited to: peripheral edema - edema continues mild relief with increased lasix. His weight has come down from 138.6 - 137.8. Will assess BMP to ensure creatinine and potassium are stable with the increase in lasix. Edema is greater on left than right pulses are normal no redness or pain with palpation. Work up/Results: BMP glu 132 BUN 18 crea 1.3 Na 140 K 4.1 cL 100 TCO2 30 angap 16 ica 1.17 HCT 47 Hb 16.0 Plan/Discussion: Continue your lasix until the follow up appointment with your PCP. Also recommended having labs drawn prior to your appointment so they are ready at the time of your visit. If the numbness/tingling becomes worse you may need to be evaluated in the ER otherwise please follow up as planned with your neurosurgeon. In order to obtain further information and compare any laboratory results/values, I have accessed . This information was pertinent in my medical decision making today. Proper Personal Protective Equipment (PPE), including were donned and doffed appropriately and all equipment cleaned using approved technique with germicidal disposable wipes prior to and after care of this patient according to [facility]'s infection prevention protocols. Time On Scene with Patient: 00:41:57 [email or web address] Not available 05/20/2022 13:50:52 Plan of Treatment Reminders Order Date Submit Date Provider Last Modified By Organization Details Last Modified Time Details Appointments None recorded. Lab BMP + ionized calcium, serum or plasma 022 022 YADY [facility] (Centralized Electronic Ordering - All Locations), Patient Can Go To The Location Of Their Choice, [id number] 3 05:01:28 Referral None recorded. Procedures None recorded. Surgeries None recorded. Imaging None recorded. Medication Orders None recorded. Patient TargetsNo targets recorded. Patient Instructions Encounter Date Encounter Id Patient Instructions Last Modified By Organization Details Last Modified Time 04/22/2022 [id number] continue furosemide 20mg tablet daily continue potassium 10meq tablet daily try to wear compression stockings daily to help prevent swelling elevate feet higher than the heart to help prevent/reduce swelling walk short distances several times per day to help decrease swelling continue to limit sodium intake in diet observe closely consider nonslip mats in the bathroom, wearing shoes, or compression stockings with nonslip sole follow up if not steadily improving over the next seven days, sooner if worse keep follow up appointments with specialists for this coming month [email or web address] Not available 04/22/2022 16:23:59 Reason for Referral None Reported. Results Created Date Observation Date Name Description Value Unit Range Abnormal Flag Note LastModifiedBy Organization Detail LastModifiedTime 05/20/20 22 05/20/2022 BMP + IONIZ ED CALCI UM, SERUM OR PLASM A glu 132 mg/dL 70-105 Not Available [facility] [address] [place], [address], 05/20/2022 12:21:38 05/20/20 22 05/20/2022 BMP + IONIZ ED CALCI UM, SERUM OR PLASM A BUN 18 mg/dL 8-26 Not Available [facility] h [address] [place], [address], 05/20/2022 12:21:38 05/20/20 22 05/20/2022 BMP + IONIZ ED CALCI UM, SERUM OR PLASM A crea 1.3 mg/dL 0.6-1. 3 Not Available [facility] [address] [place], [address], 05/20/2022 12:21:38 05/20/20 22 05/20/2022 BMP + IONIZ ED CALCI UM, SERUM OR PLASM A Na 140 mmol/ L 138-14 6 Not Available [facility] [address] [place], [address], 05/20/2022 12:21:38 05/20/20 22 05/20/2022 BMP + IONIZ ED CALCI UM, SERUM OR PLASM A K 4.1 mmol/ L 3.5-4. 9 Not Available [address], [address], 05/20/2022 12:21:38 05/20/20 22 05/20/2022 BMP + IONIZ ED CALCI UM, SERUM OR PLASM A cL 100 mmol/ L 98-109 Not Available [address], [address], 05/20/2022 12:21:38 05/20/20 22 05/20/2022 BMP + IONIZ ED CALCI UM, SERUM OR PLASM A TCO2 30 mmol/ L 24-29 Not Available [address], [address], 05/20/2022 12:21:38 05/20/20 22 05/20/2022 BMP + IONIZ ED CALCI UM, SERUM OR PLASM A angap 16 mmol/ L 10-20 Not Available [address], [address], 05/20/2022 12:21:38 05/20/20 22 05/20/2022 BMP + IONIZ ED CALCI UM, SERUM OR PLASM A ica 1.17 mmol/ L 1.12-1 .32 Not Available [address], [address], 05/20/2022 12:21:38 05/20/20 22 05/20/2022 BMP + IONIZ ED CALCI UM, SERUM OR PLASM A HCT 47 %pcv 38-51 Not Available [address], [address], 05/20/2022 12:21:38 05/20/20 22 05/20/2022 BMP + IONIZ ED CALCI UM, SERUM OR PLASM A Hb 16.0 g/dL 12-17 Not Available [address], [address], 05/20/2022 12:21:38 Result Notes None recorded. Procedures Surgical History Date Name Laterality Status Provider Name and Address Organization Details Recorded Time 05/20/20 Venipuncture - DH completed Constanza Singh NP [address], [place], [address], [place] [facility] 05/20/2022 13:03:03 removal of pilonidal cyst completed FABRIZIO HARRY [address], [place], [address], [place] [facility] 04/22/2022 15:44:21 Imaging Results None recorded. Procedure Notes None recorded. Medical Equipment None Reported. Allergies No known drug allergies Medications Name Sig Start Date Stop Date Status Note LastModified by Organization Details LastModified Time felodipine ER 2.5 mg tablet,exte nded release 24 hr TAKE 1 TABLET BY MOUTH AT BEDTIME active Not Available Not Available No t Available potassium chloride ER 10 mEq tablet,exte nded release TAKE 1 TABLET BY MOUTH EVERY DAY FOR 14 DAYS active Not Available Not Available No t Available tramadol 50 mg tablet TAKE 1 TABLET BY MOUTH ONCE DAILY AT BEDTIME NEEDED FOR PAIN active Not Available Not Available No t Available bisoprolol fumarate 5 mg tablet TAKE 1 & 1/2 TABLETS BY MOUTH EVERY DAY active Not Available Not Available No t Available trazodone 100 mg tablet TAKE 1 TABLET BY MOUTH EVERYDAY AT BEDTIME active Not Available Not Available No t Available levothyroxi ne 50 mcg tablet TAKE 1 TABLET BY MOUTH EVERY DAY active Not Available Not Available No t Available gabapentin 300 mg capsule TAKE 1 CAPSULE BY MOUTH AT BEDTIME active Not Available Not Available No t Available furosemide 20 mg tablet TAKE 1 TABLET BY MOUTH EVERY DAY active Not Available Not Available No t Available methylpredn isolone 4 mg tablets in a dose pack TAKE DIRECTED ON PACKAGE LABELING FOR 6 DAYS 04/22 completed Not Available Not Available Not Available Klor-Con M20 mEq tablet,exte nded release TAKE 1 TABLET BY MOUTH EVERY DAY active Not Available Not Available No t Available ezetimibe 10 mg-simvasta tin 80 mg tablet TAKE 1 TABLET BY MOUTH EVERY DAY 2021 active Not Available Not Available Not Avai lable aspirin active Not Available Not Avail able Not Available Vitamin D active Not Available Not Dayna ilable Not Available melatonin 5 mg tablet TAKE 1 TABLET BY MOUTH DAILY AT BEDTIME FOR 14 DAYS 04/22 completed Not Available Not Available Not Available Vitals Date Recorded Oxygen saturation Oxygen saturation in Arterial blood by Pulse oximetry Body temperature Respiratory rate Heart rate Systolic blood pressure Diastolic blood pressure Provider Name and Address Organization Details Last Updated DateTime 2 99 % 99 % 97.5 [degF] 16 /min 70 /min 118 mm[Hg] 56 mm[Hg] Not Available [facility] 2 15:41:30 Date Recorded Body temperature Heart rate Oxygen saturation Oxygen saturation in Arterial blood by Pulse oximetry Respiratory rate Systolic blood pressure Diastolic blood pressure Provider Name and Address Organization Details Last Updated DateTime 2 97.3 [degF] 78 /min 98 % 98 % 16 /min 128 mm[Hg] 64 mm[Hg] Not Available [facility] 2 17:42:01 Date Recorded Heart rate Body temperature Respiratory rate Oxygen saturation Oxygen saturation in Arterial blood by Pulse oximetry Systolic blood pressure Diastolic blood pressure Provider Name and Address Organization Details Last Updated DateTime 2 62 /min 97.6 [degF] 16 /min 99 % 99 % 124 mm[Hg] 72 mm[Hg] Not Available [facility] 2 12:07:02 Social History Question Answer Notes LastModified by Organizat ion Details LastModified Time Tobacco Smoking Status Current Every Day Smoker trying to quit. Using nicorete. FABRIZIO HARRY formerly [facility] [place], [address], [place] [facility] 04/22/2022 15:45:11 Do You Have An Advance Directive? Yes [email or web address] Information not available 04/22/2022 What Is Your Code Status? Full Code Information not available 04/22/2022 Within The Past 12 Months, Has It Happened That The Food You Bought Just Didn't Last And You Didn't Have Money To Get More. No [email or web address] Information not available 04/22/2022 Within The Past 12 Months, Have You Worried That Your Food Would Run Out Before You Got Money To Buy More. No [email or web address] Information not available 04/22/2022 Fall Risk: Do You Feel Unsteady When Standing Or Walking? No [email or web address] Information not available 04/22/2022 We Know That How And When People Interact With Friends And Family Can Be Very Different From Person To Person. How Often Do You Have The Opportunity To See Or Talk To People That You Care About And Feel Close To? (Ex: Talking To Friends On The Phone Or Visiting Friends Or Family Or Going To Spiritism Or Club Meetings) 3 Or 4 Times Per Week Information not available 04/22/2022 We Know From Many Of Our Patients That Covering All Of Their Costs Can Be Difficult At Times. This Can Cause Stress And Impact Health. In The Past Year, Have You Been Unable To Get Any Of The Following When It Was Really Needed? No [email or web address] Information not available 04/22/2022 What Is Your Housing Situation Today? I Have Housing [email or web address] Information not available 04/22/2022 Would You Like Help Connecting To Resources? None [email or web address] Information not available 04/22/2022 Sex: Unknown Functional Status None recorded. Mental Status None recorded. Family History Relationship Description Onset Age of this Age Resolved Age Notes LastModified by Organization Details LastModified Time Brother Congestive heart failure [email or web address] Not available 2021 15:47:28 Brother Coronary arterioscler osis [email or web address] Not available 2021 15:47:39 Medical History Condition Response Diabetes N Coronary Artery Disease N CHF N Parkinson's Disease N Cancer Y Stroke N Dementia N Asthma N COPD N Depression N Hypothyroidism N High Cholesterol Y Rheumatoid Arthritis N Pulmonary Embolism N Hypertension Y A-fib N Osteoporosis N Kidney Disease Y Past Encounters Encounter ID Performer Location Encounter Start Date Encounter Closed Date Diagnosis/Indication Diagnosis SNOMED-CT Code Diagnosis ICD10 Code Diagnosis Note [id number] [facility]RI[facility]IO [facility] [address] [facility] [place] [address] 04/22/2022 15:31:22 04/25/2022 09:11:02 Bilateral lower limb edema 790285352 R60.0 Essential hypertension 61709800 I10 [id number] FABRIZIO Wagoner [facility] [address] [place] [address] 05/16/2022 17:12:55 05/17/2022 15:17:13 Bilateral lower limb edema 404929332 R60.0 Spinal cecy nosis of lumbar region 76908087 M48.061 [id number] Constanza Singh NP [facility] [address] [place] [address] 05/20/2022 11:48:19 05/23/2022 08:07:56 Bilateral lower limb edema 841177333 R60.0 Health Concerns Section Related Observation LastModified by Organization Detai ls LastModified Time None Recorded Concern Status LastModified by Organization Details LastModified Time None Recorded Advance Directives Directive Y: Payers Encounter Date Sequence Insurance Name Policy Number Policy Diop Covered Member ID Diop Member ID Guarantor Name 04/22/2022 1 [place] [employer] Dontae Marozzi [id number] Nelson Marozzi 04/22/2022 2 [facility] - [place] - DOS PRIOR TO 2024 (PPO) Dontae Elenaozzi [id number] WILSON Nelson Marozzi 05/16/2022 1 [place] Dontae Marozzi [id number] Nelson Marozzi 05/16/2022 2 [employer] - [place] - DOS PRIOR TO 2024 (PPO) Dontae Marozzi [id number] WILSON Nelson Marozzi 05/20/2022 1 [place] Dontae Marozzi [id number] 5 Nelson Marozzi 05/20/2022 2 [employer] - [place] - DOS PRIOR TO 2024 (PPO) Dontae Marozzi [id number] WILSON Nelson Marozzi Notes Date Note Type Note Provider Name and Address Organization Details Recorded Time 04/22/2022 text/html 81 yo male with bilateral lower extremity swelling for the past three weeks. Pt had a fall about four weeks ago and was in the hospital then rehab until about 10 days ago. Swelling started while in the hospital and continued until time of visit. Pt was taking furosemide but stopped taking it about a month ago because it was making him go to the bathroom too much. He discussed this with his pcp. BP was normal and pt did not seem to need it. Pt restarted furosemide 20mg about 5 days ago with potassium 10meq. Swelling has improved a little. Has been trying to wear compression socks but has difficulty getting them on and they are slippery in the bathroom. Swelling is nearly resolved each morning then returns later in the day. Denies hx of CHF, no shortness of breath, no chest pain, no calf pain, no redness. Has wounds from carpet burn from fall 4weeks ago but these seem to be healing well. FABRIZIO HARRY [address], [place], [address], [place] [facility] 04/22/2022 16:31:43 05/16/2022 text/html 81 YOM known to but new to providerBeing seen today for BL pedal and ankle edema, seemingly slightly worse over last couple of days. He has issue of this chronically. Being followed closely by PCP for this issue. He takes lasix 20 mg daily for this issue and he is taking his medicine as prescribed. He also reports compliance w/ mechanical measures such as avoiding salt, elevating legs, and wearing compressions stockings. He does not check weight daily however. He denies any severe pain, rapidly progressive edema, cp, sob, or numbness to his feet. His edema seems to worsen throughout the day and does wax and wane at times. Recently seen in ED to r/o blood clot w/ negative studies at that time. He had f/u with PCP 5 days ago for this issue and had BMP drawn w/ stable findings, Cr at baseline between 1.1-1.3, and stable lytes. Otherwise he is doing well. Again no cp, no weakness, no sob, no orthopnea, no severe pain, no abd pain, no NVD.Of note he does have a hx of spinal stenosis that he was followed by neurosurgery closely for. He trialled multiple modalities but they did sign off as he declined surgery at that time. He does have pins and needles feeling to his BLE that is not new, this has been ongoing for over a month and he has seen PCP and neurosurgery multiple times w/in this time frame. He does have documented diagnosis of cord compression (cauda equina) w/ strong recc from neurosurgery for surgical intervention but he declines this intervention at this time. He also states that at one point he believes the neurosurgeon told him he does not have cauda equina syndrome and that back surgery may make him worse . I do not see any documentation of that specifically in neuro surgery records but he is adamant that was said to him. Regardless none of his complaints are new and w/o discussion further w/ neurosurg there is nothing more that can truly be done at this time. He has been progressing well w/ PT it seems per records and per him and he has o red flag back pain sxs at this time denying any fever, midline back pain, flank pain, loss of bowel/bladder, any loss of sensation to BLE, progressive weakness, severe leg pain, saddle anesthesia.Other than the above he has no otehr acute concerns or c/o today. FABRIZIO Munoz [address], [place], [address], [place] [facility] 05/16/2022 19:26:34 05/20/2022 text/html 81 yo m has DHFU following increase in lasix 4 days ago. He was seen for bilateral lower leg edema. Weight has come down from 138.6 - 137.8 with some reduction of edema. Attempted to f/u with pcp but was told to keep the appointment with DH instead. Has a f/u with PCP 06/20/22. He is elevating his legs a few times throughout the day but is unable to do this much at night. Has f/u ortho surgeon early May as he has had continued numbness and tingling feeling of both leg but more on the left. Constanza Singh NP [address], [place], [address], [place] [facility] 05/20/2022 13:51:04
--- OUTSIDE RECORDS SUMMARY | 2024-12-10 13:59 | XMS_ITS | Clinical Summary ---
Author Organization Formerly [facility] Address [address] [place] [address] Care Team Providers Care Stock Clerk Name Role Phone Pedro Burnett DO Primary Care Provider [phone] Bon Sheikh MD Unavailable [phone] Allergies No known active allergies Medications Medication Sig Dispensed Refills Start Date End Date Status furosemide (LASIX) 20 MG tablet Take 2 tablets (40 mg total) by mouth daily. Pt taking 20 mg daily Active bisoprolol (ZEBeta) 5 MG tablet Take 1.5 tablets (7.5 mg total) by mouth daily. Active levothyroxine (SYNTHROID, LEVOTHROID) 50 MCG tablet Take 1 tablet (50 mcg total) by mouth daily on an empty stomach. Active ezetimibe-simvastatin (VYTORIN) 10-80 MG per tablet Take 1 tablet by mouth nightly. Active Vitamin D3 (CHOLECALCIFEROL) 50 MCG (2000 UT) tablet Take 1 tablet (2,000 Units total) by mouth daily. Active traZODone (DESYREL) 100 MG tablet Take 1 tablet (100 mg total) by mouth nightly. Active melatonin 3 MG Tab tablet Take 10 mg by mouth nightly. Active potassium chloride (KLOR-CON M20) 20 MEQ tablet Take 1 tablet (20 mEq total) by mouth daily. Swallow whole, do not crush. Take with food Active felodipine (PLENDIL) 2.5 MG 24 hr tablet Take 1 tablet (2.5 mg total) by mouth daily. Active Active Problems Problem Noted Date Diagnosed Date Palpitations 11/29/2021 PSVT (paroxysmal supraventricular tachycardia) 0 11/29/2021 Overview (11/29/2021): --Holter [id number] frequent PACs with multiple runs of SVT, likely atrial tachycardia. 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 Stage 3b chronic kidney disease 10/06/2021 Primary hypertension 10/06/2021 Mixed hyperlipidemia 10/06/2021 Heart murmur 10/06/2021 Family History Medical History Relation Name Comments Coronary artery disease Father Heart attack Father Relation Name Status Comments Father Social History Tobacco Use Types Packs/Day Years Used Date Smoking Tobacco: Former Cigarettes Smokeless Tobacco: Never Tobacco Cessation:Counseling Given: Not Answered Alcohol Use Standard Drinks/Week Comments Yes 0 (1 standard drink = 0.6 oz pur e alcohol) Sex and Gender Information Value Date Recorded Sex Assigned at Not on file Gender Identity Male 10/28/2021 3:47 PM EST Sexual Orientation Heterosexual (straight) 10/28 3:46 PM EST Last Filed Vital Signs Vital Sign Reading Time Taken Comments Blood Pressure 122/80 05/17/2024 10:48 AM EDT Pulse 53 05/17/2024 10:48 AM EDT Temperature - - Respiratory Rate - - Oxygen Saturation 98% 11/14/2022 11:32 AM EDT Inhaled Oxygen Concentration - - Weight 60.3 kg (133 lb) 05/17/2024 10:48 AM EDT Height 154.9 cm (5' 1 ) 05/17/2024 10:48 AM EDT Body Mass Index 25.13 05/17/2024 10:48 AM EDT Plan of Treatment Upcoming Encounters Date Type Department Care Team (Late st Contact Info) Description 05/23/2025 11:00 AM EDT Office Visit [facility] [place] [address] [address] Bon Sheikh MD [address] [place] [address] [phone]- Health Maintenance Due Date Last Done Comments DTaP/Tdap/Td Vaccines (1 - Tdap) 11/20/1959 Pneumococcal Vaccines 50+ (1 of 2 - PCV) 11/20/1958 Zoster (Shingles) Vaccine (1 of 2) 11/20/1958 RSV Vaccine 60 years and older and Patients (1 - 1-dose 75+ series) 11/20/2014 Influenza Vaccine 03/28/2024 06/21/2023, , 07/07/2021, Additional history exists COVID-19 Vaccine ( season) 2024 06/29/2023, 01/20/2022, 07/19/2021, Additional history exists Hepatitis B Vaccines Aged Out No long er eligible based on patient's age to complete this topic Care Teams Stock Clerk Relationship Specialty Start Date End Date Pedro Burnett DO [address] [place] [address] PCP - General 10/06/21 Bon Sheikh MD [address] [place] [address] Primary Model And Dye Person Cardiovascular Disease 10/06/21
--- OUTSIDE RECORDS SUMMARY | 2024-12-10 13:59 | XMS_ITS | Clinical Summary ---
Author Organization [facility] it Address [address] [place] [address] Care Team Providers Care Almond Huller Name Role Phone Pedro Burnett DO Primary Care Provider [phone] Surgical History Surgery Date Site/Laterality Comments OTHER SURGICAL HISTORY PROCEDURE:INSERTION PROSTATE RADIATION SEED URETERAL STENT PLACEMENT Left PROCEDURE:URETERAL STENT PLACEMENT LUMBAR FUSION 07/29/2022 Posterior PROCEDURE:LUMBAR FUSION;COMMENT:Procedure: L4-5 FUSION SPINE LUMBAR POSTERIOR MINIMALLY INVASIVE- TLIF; Surgeon: Gerald Bella MD; Location: [facility]; Service: Spine; Laterality: Posterior; SPINE SURGERY 07/29/2022 N/A PROCEDURE:SPINE SURGERY;COMMENT:Procedure: ARTHRODESIS LUMBAR POSTERIOR INTERBODY TECHNIQUE SINGLE INTERSPACE; Surgeon: Gerald Bella MD; Location: [facility]; Service: Spine; Laterality: N/A; AUTOGRAFT/SPINE SURGERY 07/29/2022 N/A PROCEDURE:AUTOGRAFT/SPINE SURGERY;COMMENT:Procedure: AUTOGRAFT BONE SPINE; Surgeon: Gerald Bella MD; Location: [facility]; Service: Spine; Laterality: N/A; Medical History Medical History Date Comments Prostate cancer (CMS/HCC V24, CMS/HCC V28) DX:Prostate cancer (HCC) Laryngeal cancer (CMS/HCC V24, CMS/HCC V28) DX:Laryngeal cancer (HCC) Palpitations DX:Palpitations Hypothyroid DX:Hypothyroid Glaucoma DX:Glaucoma Hypertension DX:Hypertension Hyperlipidemia DX:Hyperlipidemi a Social History Tobacco Use Types Packs/Day Years Used Date Smoking Tobacco: Former Smokeless Tobacco: Never Alcohol Use Standard Drinks/Week Comments Not Currently 11 (1 standard drink = 0.6 oz pu re alcohol) Sex and Gender Information Value Date Recorded Sex Assigned at Not on file Legal Sex Male 11:27 PM EST Gender Identity Not on file Sexual Orientation Not on file Obstetrics History Last Filed Vital Signs Vital Sign Reading Time Taken Comments Blood Pressure 130/75 11/01/2022 11:02 AM EST Sitting Left arm Pulse 86 11/01/2022 11:02 AM EST Temperature - - Respiratory Rate - - Oxygen Saturation - - Inhaled Oxygen Concentration - - Weight 62.6 kg (138 lb) 11/01/2022 11:0 2 AM EST Height 154.9 cm (5' 1 ) 11/01/2022 11:0 2 AM EST Body Mass Index 26.07 11/01/2022 11:02 AM EST Plan of Treatment Health Maintenance Due Date Last Done Comments COVID-19 Vaccine (#1) 11/20/1945 DTaP,Tdap,and Td Vaccines (1 - Tdap) 11/20/1958 Pneumococcal Vaccine: 50+ Ye ars (1 of 2 - PCV) 11/20/1958 Zoster Vaccines (1 of 2) 11/20/1958 RSV Immunization Adult Patie nts (1 - 1-dose 75+ series) 11/20/2014 Cholesterol Screening (Lipid Panel) 07/31/2022 Depression Screening 07/31/2022 Falls Risk Assessment 07/31/2022 Social Influencers of Health Screening 07/31/2022 Influenza Vaccine (Season Ended) 2025 HIB Vaccines Aged Out No longer eligi ble based on patient's age to complete this topic HPV Vaccines Aged Out No longer eligi ble based on patient's age to complete this topic Hepatitis A Vaccines Aged Out No long er eligible based on patient's age to complete this topic Hepatitis B Vaccines Aged Out No long er eligible based on patient's age to complete this topic IPV Vaccines Aged Out No longer eligi ble based on patient's age to complete this topic MMR Vaccines Aged Out No longer eligi ble based on patient's age to complete this topic Meningococcal ACWY Vaccine Aged Out N o longer eligible based on patient's age to complete this topic Meningococcal B Vaccine Aged Out No l onger eligible based on patient's age to complete this topic RSV Immunization Patients Un reinaldo 20 months Aged Out No longer eligible b ased on patient's age to complete this topic Varicella Vaccines Aged Out No longer eligible based on patient's age to complete this topic Medical Devices Implanted Type Area Side Laster Staple Device Identifier Shelf Expiration Date Model / Serial / Lot Sponge Surgifoam Gel 12 X [facility]:Qty: 2 on 07/29/2022 by Gerald Bella MD Implants N/A: Spine Lumbar J [employer] INC 10/14/20251971 / / [id number] Surgiflo Hemostatic Matrix [facility] [id number] Implanted:Qty: 1 on 07/29/2022 by Gerald Bella MD Implants N/A: Spine Lumbar [facility] [employer] 03/27/2024 [id number] / / [id number] Sealant Fibrin Vistaseal 4ml [facility] [id number] Implanted:Qty: 1 on 07/29/2022 by Gerald Bella MD Implants N/A: Spine Lumbar [facility] [employer] 12/28/2023 [id number] / / [id number] Putty Vesuvius 100 5ml Stry-K2m [id number] - [id number] Implanted:Qty: 1 on 07/29/2022 by Gearld Bella MD N/A: Spine Lumbar [employer] 02/25/2024 [id number] 0DP / [id number] / [id number] Putty Bone Graft 1.0ml Peptide Enhanced [facility] [id number] Implanted:Qty: 1 on 07/29/2022 by Gerald Bella MD N/A: Spine Lumbar [employer] 12/25/2024 [id number] / / [id number] Shell Short Flarehawk 25mm Fh9 [id number] Implanted:Qty: 1 on 07/29/2022 by Gerald Bella MD N/A: Spine Lumbar [employer] [id number] / / Cage Spinal Flarehawk 6 D L23 [id number] Implanted:Qty: 1 on 07/29/2022 by Gerald Bella MD N/A: Spine Lumbar [employer] [id number] / / Screw Maureen Polyaxial Extended Tab 6.5x45mm Stry-K2m [id number] Implanted:Qty: 2 on 07/29/2022 by Gerald Bella MD N/A: Spine Lumbar [employer] [id number] / / Screw Set [employer] Stry-K2m [id number] Implanted:Qty: 4 on 07/29/2022 by Gerald Bella MD N/A: Spine Lumbar [employer] [id number] 1 / / Maureen Fenest Polyaxial Extended Tab 6.5x40mm Stry-K2m [id number] Implanted:Qty: 2 on 07/29/2022 by Gerald Bella MD N/A: Spine Lumbar [employer] [id number] 40 / / Honorio Contr Blt Hex 5.5x35mm Stry-K2m [id number] Implanted:Qty: 2 on 07/29/2022 by Gerald Bella MD N/A: Spine Lumbar [employer] [id number] / / Advance Directives Documents on File Type Date Recorded Patient Figure Refinisher And Repairer Expl anation Health Care Decision (hx) 06/10/2015 AD NEGRON DIRECTIVE Health Care Decision (hx) 06/10/2015 AD NEGRON DIRECTIVE Health Care Decision (hx) 06/10/2015 AD NEGRON DIRECTIVE Health Care Decision (hx) 06/10/2015 AD NEGRON DIRECTIVE Health Care Decision (hx) 06/10/2015 AD NEGRON DIRECTIVE Health Care Decision (hx) 06/10/2015 AD NEGRON DIRECTIVE Health Care Decision (hx) 06/10/2015 AD NEGRON DIRECTIVE Health Care Decision (hx) 06/10/2015 AD NEGRON DIRECTIVE Health Care Decision (hx) 06/10/2015 AD NEGRON DIRECTIVE Health Care Decision (hx) 06/10/2015 AD NEGRON DIRECTIVE Health Care Decision (hx) 06/10/2015 AD NEGRON DIRECTIVE Health Care Decision (hx) 06/10/2015 AD NEGRON DIRECTIVE Health Care Decision (hx) 06/10/2015 AD NEGRON DIRECTIVE Health Care Decision (hx) 06/10/2015 AD NEGRON DIRECTIVE Health Care Decision (hx) 01/11/2012 AD NEGRON DIRECTIVE Health Care Decision (hx) 01/11/2012 AD NEGRON DIRECTIVE Health Care Decision (hx) 01/11/2012 AD NEGRON DIRECTIVE Health Care Decision (hx) 01/11/2012 AD NEGRON DIRECTIVE Health Care Decision (hx) 01/11/2012 AD NEGRON DIRECTIVE Health Care Decision (hx) 01/11/2012 AD NEGRON DIRECTIVE Health Care Decision (hx) 01/11/2012 AD NEGRON DIRECTIVE Health Care Decision (hx) 01/11/2012 AD NEGRON DIRECTIVE Health Care Decision (hx) 01/11/2012 AD NEGRON DIRECTIVE Health Care Decision (hx) 01/11/2012 AD NEGRON DIRECTIVE Health Care Decision (hx) 01/11/2012 AD NEGRON DIRECTIVE Health Care Decision (hx) 01/11/2012 AD NEGRON DIRECTIVE Health Care Decision (hx) 01/11/2012 AD NEGRON DIRECTIVE Health Care Decision (hx) 01/11/2012 AD NEGRON DIRECTIVE Health Care Decision (hx) 09/09/2009 AD NEGRON DIRECTIVE Health Care Decision (hx) 09/09/2009 AD NEGRON DIRECTIVE Health Care Decision (hx) 09/09/2009 AD NEGRON DIRECTIVE Health Care Decision (hx) 09/09/2009 AD NEGRON DIRECTIVE Health Care Decision (hx) 09/09/2009 AD NEGRON DIRECTIVE Health Care Decision (hx) 09/09/2009 AD NEGRON DIRECTIVE Health Care Decision (hx) 09/09/2009 AD NEGRON DIRECTIVE Health Care Decision (hx) 09/09/2009 AD NEGRON DIRECTIVE Health Care Decision (hx) 09/09/2009 AD NEGRON DIRECTIVE Health Care Decision (hx) 09/09/2009 AD NEGRON DIRECTIVE Health Care Decision (hx) 09/09/2009 AD NEGRON DIRECTIVE Health Care Decision (hx) 09/09/2009 AD NEGRON DIRECTIVE Health Care Decision (hx) 09/09/2009 AD NEGRON DIRECTIVE Health Care Decision (hx) 09/09/2009 AD NEGRON DIRECTIVE Care Teams Almond Huller Relationship Specialty Start Date End Date Pedro Burnett DO [address] [place] [address] PCP - General Family Medicine 11/22/19
--- OUTSIDE RECORDS SUMMARY | 2024-12-10 13:59 | XMS_ITS | Clinical Summary ---
Author Organization [facility] Address [address] [place] [address] Care Team Providers Care Certified Bench Jeweler Technician Name Role Phone Pedro Burnett MD Primary Care Provider [phone] Allergies No known active allergies Medications Medication Sig Dispensed Refills Start Date End Date Status ezetimibe-simvastat in (VYTORIN) tablet 10-80 mg Take 1 tablet by mouth every night at bedtime. 0 Active furosemide (LASIX) 20 MG tablet Take 20 mg by mouth 2 (two) times a day. 0 Active levothyroxine (SYNTHROID, LEVOXYL) tablet 50 mcg Take 50 mcg by mouth every morning on an empty stomach. 0 Active traZODone (DESYREL) 100 MG tablet Take 100 mg by mouth every night at bedtime. 0 Active bisoprolol (ZEBETA) 5 MG tablet Take 2.5-5 mg by mouth 2 (two) times a day. In the morning 2.5, in the evening 5mg 0 Active Vitamin D, Ergocalciferol, 50 MCG (1999 UT) CAPS Take 2,000 Units by mouth. 0 Active potassium chloride ER (K-DUR,KLOR-CON) tablet 20 mEq Take 1 tablet (20 mEq total) by mouth daily. 0 Active L-METHYLFOLATE PO Take 1,700 mcg by mouth. 0 Active oxyCODONE (ROXICODONE) 5 MG immediate release tablet Take 1-2 tablets (5-10 mg total) by mouth every 4 (four) hours as needed for pain. 40 tablet 0 07/30/2022 Active senna-docusate (PERICOLACE) 8.6-50 MG Take 1 tablet by mouth 2 (two) times a day. Take while on pain medication to prevent constipation. 40 tablet 0 07/30/2022 Active Active Problems Problem Noted Date Diagnosed Date Fusion of lumbar spine 07/29/2022 Esophageal hypertension 12/30/2019 Mixed hyperlipidemia 12/30/2019 Hypothyroidism (acquired) 12/30/2019 Laryngeal cancer 12/02/2019 Social History Tobacco Use Types Packs/Day Years Used Date Smoking Tobacco: Former Smokeless Tobacco: Never Tobacco Cessation:Counseling Given: Not Answered Alcohol Use Standard Drinks/Week Comments Not Currently 11 (1 standard drink = 0.6 oz pu re alcohol) daily 1-2 drinks/day Sex and Gender Information Value Date Recorded Sex Assigned at Male 07/20/2022 11:22 AM EST Gender Identity Not on file Sexual Orientation Not on file Job Start Date Occupation Industry Not on file Not on file Not on file Last Filed Vital Signs Vital Sign Reading Time Taken Comments Blood Pressure 130/75 11/01/2022 11:02 AM EST Pulse 86 11/01/2022 11:02 AM EST Temperature 36.5 ??C (97.7 ??F) 07/30/2022 9:45 AM ES T Respiratory Rate 14 07/30/2022 9:45 AM EST Oxygen Saturation 97% 11/01/2022 11:02 AM EST Inhaled Oxygen Concentration - - Weight 62.6 kg (138 lb) 11/01/2022 11:02 AM EST Height 154.9 cm (5' 1 ) 11/01/2022 11:02 AM EST Body Mass Index 26.07 11/01/2022 11:02 AM EST Plan of Treatment Health Maintenance Due Date Last Done Comments COVID-19 Vaccine (#1) 11/20/1945 Depression Screening 1952 Preventative Health Evaluation 11/20/1957 DTap / Tdap / Td (1 - Tdap) 11/20/1958 Shingrix-Zoster Vaccine (1 of 2) 11/20/1958 Fall Risk Assessment 11/20/2004 RSV Adult > 60+ Yrs or (1 - 1-dose 75+ series) 11/20/2014 Influenza Vaccine (#1) 2024 1, 06/21/2019, 05/28/2019, Additional history exists Pneumococcal Vaccine Completed 10/28/2019, 10/25/2019, 04/15/2017 Hepatitis B Vaccines Aged Out No long er eligible based on patient's age to complete this topic RSV Ped < 20 months Aged Out No longe r eligible based on patient's age to complete this topic Medical Devices Implanted Type Area Physics Tutor Device Identifier Shelf Expiration Date Model / Serial / Lot Sealant Fibrin Vistaseal 4ml [facility] [id number] - [id number] Implanted:Qty : 1 on 07/29/2022 by Gerald Bella MD at [facility] Hemostatic Agent Posterior : Spine Lumbar J [employer] 12/28/2023 VST04 / / [id number] Sponge Surgifoam Gel 12 X 7mm [facility] [id number] - [id number] Implanted:Qty : 2 on 07/29/2022 by Gerald Bella MD at [facility] and Med Hemostatic Agent Posterior : Spine Lumbar J [employer] 10/14/2025 1972 / / [id number] Surgiflo Hemostatic Matrix [facility] [id number] - [id number] Implanted:Qty : 1 on 07/29/2022 by Gerald Bella MD at [facility] and Med Hemostatic Agent Posterior : Spine Lumbar JNJ [employer] 03/27/2024 2991 / / [id number] Putty Vesuvius 100 5ml Stry-K2m [id number] - [id number] Implanted:Qty : 1 on 07/29/2022 by Gerald Bella MD at [facility] and Med Posterior : Spine Lumbar [employer] 02/25/2024 [id number]-[id number] 0DP / [id number] Putty Bone Graft 1.0ml Peptide Enhanced [facility] [id number] - [id number] Implanted:Qty : 1 on 07/29/2022 by Gerald Bella MD at [facility] and Med Posterior : Spine Lumbar [employer] 12/25/2024 700-010 / / [id number] Shell Short Flarehawk 25mm Fh9 Intg-Manu [id number] - [id number] Implanted:Qty : 1 on 07/29/2022 by Gerald Bella MD at [facility] and Med Posterior : Spine Lumbar [employer] [id number] / / Cage Spinal Flarehawk 6 D L23 Intg-Manu [id number] - [id number] Implanted:Qty : 1 on 07/29/2022 by Gerald Bella MD at [facility] Posterior : Spine Lumbar [employer] [id number] / / Screw Maureen Polyaxial Extended Tab 6.5x45mm Stry-K2m [id number] - [id number] Implanted:Qty : 2 on 07/29/2022 by Gerald Bella MD at [facility] and [facility] Posterior : Spine Lumbar [employer] [id number] 45 / / Screw Set [place] Stry-K2m [id number] - [id number] Implanted:Qty : 4 on 07/29/2022 by Gerald Bella MD at [facility] Posterior : Spine Lumbar [employer] [id number] 1 / / Maureen Fenest Polyaxial Extended Tab 6.5x40mm Stry-K2m [id number] - [id number] Implanted:Qty : 2 on 07/29/2022 by Gerald Bella MD at [facility] Posterior : Spine Lumbar [employer] [id number] / / Honorio Contr Blt Hex 5.5x35mm Stry-K2m [id number] - [id number] Implanted:Qty : 2 on 07/29/2022 by Gerald Bella MD at [facility] Posterior : Spine Lumbar [employer] [id number] 5 / / Explanted Type Area Physics Tutor Device Identifier Shelf Expiration Date Model / Serial / Lot Pin [place] [employer] [id number] Hlf 30thrd Stry-Howm [id number] - [id number] Explanted:Qty: 2 on 07/29/2022 by Gerald Bella MD at [facility] Right Posterior: Iliac [facility] [id number] / / Advance Directives For more information, please contact: [phone] Latest Code Status on File Code Status Date Activated Date Inactivated Comments Full Code 07/29/2022 1:28 PM 07/30/2022 10:45 PM This code status was ascertained in the following way: discussion with patient . Care Teams Certified Bench Jeweler Technician Relationship Specialty Start Date End Date Pedro Burnett MD [address] [place] [address] PCP - General Family Medicine 11/22/19
--- OUTSIDE RECORDS SUMMARY | 2024-12-10 13:59 | XMS_ITS | Clinical Summary ---
Author Organization [facility]. Address [address] [place] [phone] Phone Care Team Providers Care Caponizer Name Role Phone Pedro Burnett DO Primary Care Provider [phone] Allergies No known active allergies Medications bisoprolol (ZEBETA) 5 MG tablet Take 1.5 tablets by mouth 1 (one) time each day Active Cholecalciferol 50 MCG (1999 UT) capsule Take 1 capsule by mouth every other day Active ezetimibe-simva statin (VYTORIN) 10-80 MG per tablet Take 1 tablet by mouth 1 (one) time each day Active levothyroxine (SYNTHROID, LEVOTHROID) 50 MCG tablet Take 1 tablet by mouth 1 (one) time each day Active potassium chloride (KLOR-CON M10) 10 MEQ CR tablet Take 1 tablet by mouth 1 (one) time each day Active traZODone (DESYREL) 100 MG tablet Take 1 tablet by mouth at bed time Active furosemide (LASIX) 20 MG tablet Take 20 mg by mouth 1 (one) time each day 01/27/2021 Active felodipine (PLENDIL) 2.5 MG 24 hr tablet TAKE 1 TABLET BY MOUTH 1 TIME EACH DAY. 90 tablet 3 10/25/2024 Active Active Problems Problem Noted Date Diagnosed Date Non-Hodgkin's lymphoma (clinical) 09/18/2024 Malignant neoplasm of prostate 12/25/2022 Overview (12/25/2022): Dr. 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 Encounters Date Type Department Care Team Description 10/25/2024 Refill [facility] [address] [place] [phone] Royce Day MD 09/20/2024 Orders Only [facility] [address] [place] [phone] Royce Day MD Stage 3a chronic kidney disease (HCC); Hypertension; Hyperuricemia; Localized edema 09/18/2024 10:40 AM EST Office Visit [facility] [address] [phone] Royce Day MD Stage 3a chronic kidney disease (HCC) (Primary Dx); Hyperuricemia; Hypertension; Hydronephrosis, not otherwise specified; Non-Hodgkin's lymphoma (clinical) (HCC); Malignant neoplasm of prostate (HCC); Localized edema 09/18/2024 Office Communication [facility] [address] [phone] Royce Day MD 09/13/2024 Travel from Last 3 Months Immunizations Immunization Administration Dates Next Due Influenza Split High Dose Preservative Free IM 1 ,06/18/2018 Pneumococcal Conjugate 13-Valent 04/15/2017 Family History Medical History Relation Comments Heart disease Father [place] Diabetes Sibling brother type II Relation Status Comments Father Mother Sibling Social History Tobacco Use Types Packs/Day Years Used Date Smoking Tobacco: Former Smokeless Tobacco: Never Tobacco Cessation:Counseling Given: No Alcohol Use Standard Drinks/Week Comments Yes 0 (1 standard drink = 0.6 oz pur e alcohol) Sex and Gender Information Value Date Recorded Sex Assigned at Not on file Legal Sex Male 4:50 PM EST Gender Identity Male 09/19/2023 12:14 PM EST Sexual Orientation Straight 09/19/2023 12 :14 PM EST Last Filed Vital Signs Vital Sign Reading Time Taken Comments Blood Pressure 110/62 09/18/2024 10:38 AM EST Pulse 52 09/18/2024 10:38 AM EST Temperature - - Respiratory Rate - - Oxygen Saturation 100% 09/20/2023 10:41 AM EST Inhaled Oxygen Concentration - - Weight 59.4 kg (131 lb) 09/18/2024 10:38 AM EST Height 154.9 cm (5' 1 ) 09/20/2023 10:41 AM EST Body Mass Index 24.75 09/20/2023 10:41 AM EST Plan of Treatment Upcoming Encounters Date Type Department Care Team (Late st Contact Info) Description 03/18/2025 9:40 AM EDT Office Visit [facility] [address] [phone] Royce Day MD [address] [phone] Health Maintenance Due Date Last Done Comments Influenza Vaccine (Season Ended) 2025 07/20/2021, 06/06/2020, 06/24/2019, Additional history exists Pneumococcal Vaccine: 50+ Years Completed 10/28/2019, 10/25/2019, 04/15/2017 Pneumococcal Vaccine: Peds (0 to 5 Years) and At-Risk Patients (6 to 49 Years) Discontinued 10/28/2019, 10/25/2019, 04/15/2017 Hepatitis B Vaccine Aged Out No longe r eligible based on patient's age to complete this topic Procedures Procedure Name Priority Date/Time Associated Diagnosis Comments PTH, INTACT Routine 09/11/2024 9:58 AM EST MAGNESIUM Routine 09/11/2024 9:58 AM EST PHOSPHATE ( PHOSPHORUS) Routine 09/11/2024 9:58 AM EST URIC ACID Routine 09/11/2024 9:58 AM EST VITAMIN D 25 HYDROXY Routine 09/11/2024 9:58 AM EST PROTEIN / CREATININE RATIO, URINE Routine 09/11/2024 9:58 AM EST COMPREHENSIVE METABOLIC PANEL Routine 09/11/2024 9:58 AM EST CBC AND DIFFERENTIAL Routine 09/11/2024 9:58 AM EST from Last 3 Months Results * (ABNORMAL) Protein, Total, Random Urine w/Creatinine (Protein/Creat Ratio) (09/11/2024 9:58 AM EST) Creatinine, Ur 93.0 Not Estab. mg/dL [facility] Protein, Ur 49.1 Not Estab. mg/dL [facility] Urine Protein/Creati nine Ratio 528(H) 0 - 200 mg/g creat [facility] 09/11/2024 9:58 AM EST 09/11/2024 us Royce Day MD LAB URINE ORDERABLES Final Re sult [facility] [address] [place] [address] * Vitamin D 25 Hydroxy (09/11/2024 9:58 AM EST) Vitamin D, 25-OH, Total 53.8 30.0 - 100.0 ng/mL [facility] Comment: Vitamin D deficiency has been defined by the [place] of Medicine and an Endocrine Society practice guideline as a level of serum 25-OH vitamin D less than 20 ng/mL (1,2). The Endocrine Society went on to further define vitamin D insufficiency as a level between 21 and 29 ng/mL (2). 1. IOM ([place] of Medicine). 2010. Dietary reference ?? intakes for calcium and D. [place]: The ?? National [employer] Press. 2. Marleny MF, Joseph [place], Merry WILSON, et al. ?? Evaluation, treatment, and prevention of vitamin D ?? deficiency: an Endocrine Society clinical practice ?? guideline. JCEM. 2010; 96(7):1911-30. 09/11/2024 9:58 AM EST 09/11/2024 us Royce Day MD LAB BLOOD ORDERABLES Final Re sult [facility] [address] [place] [address] * (ABNORMAL) CBC and Differential (09/11/2024 9:58 AM EST) WBC 11.0(H) 3.4 - 10.8 x10E3/uL [facility] RBC 4.81 4.14 - 5.80 x10E6/uL [facility] Hemoglobin 14.8 13.0 - 17.7 g/dL [facility] Hematocrit 45.2 37.5 - 51.0 % [facility] MCV 94 79 - 97 fL [facility] MCH 30.8 26.6 - 33.0 pg [facility] MCHC 32.7 31.5 - 35.7 g/dL [facility] RDW 12.7 11.6 - 15.4 % [facility] Platelets 190 150 - 450 x10E3/uL [facility] Neutrophils Relative 43 Not Estab. % [facility] Lymphocytes Relative 45 Not Estab. % [facility] Monocytes 9 Not Estab. % [facility] Eosinophils Relative 2 Not Estab. % [facility] Basophils Relative 1 Not Estab. % [facility] Neutrophils Absolute 4.7 1.4 - 7.0 x10E3/uL [facility] Lymphocytes Absolute 5.0(H) 0.7 - 3.1 x10E3/uL [facility] Monocytes Absolute 1.0(H) 0.1 - 0.9 x10E3/uL [facility] Eosinophils Absolute 0.2 0.0 - 0.4 x10E3/uL [facility] Basophils Absolute 0.1 0.0 - 0.2 x10E3/uL [facility] Immature Granulocytes 0 Not Estab. % [facility] Immature Grans (Absolute) 0.0 0.0 - 0.1 x10E3/uL [facility] Comment: Note: [facility] Comment:Verified by microsco pic examination. 09/11/2024 9:58 AM EST 09/11/2024 us Royce Day MD LAB BLOOD ORDERABLES Final Re s[facility] [address] [place] [address] * (ABNORMAL) Uric Acid (09/11/2024 9:58 AM EST) Uric Acid 8.9(H) 3.8 - 8.4 mg/dL [facility] Comment:Therapeutic target f or gout patients: <6.0 09/11/2024 9:58 AM EST 09/11/2024 us Royce Day MD LAB BLOOD ORDERABLES Final Re sult [facility] [address] [place] [address] * Phosphorus (09/11/2024 9:58 AM EST) Phosphorus 3.6 2.8 - 4.1 mg/dL [facility] 09/11/2024 9:58 AM EST 09/11/2024 Royce Day MD LAB BLOOD ORDERABLES Final Re sult Performing Organization Address City/[facility]/ZIP Co de Phone Number [facility] [address] [place] [address] * PTH, Intact (09/11/2024 9:58 AM EST) Pathologist [facility] PTH 43 15 - 65 pg/mL [facility] 09/11/2024 9:58 AM EST 09/11/2024 Royce Day MD LAB BLOOD ORDERABLES Final Re sult Performing Organization Address [facility] de Phone Number [facility] [address] [place] [address] * Magnesium (09/11/2024 9:58 AM EST) Magnesium 2.1 1.6 - 2.3 mg/dL [facility] 09/11/2024 9:58 AM EST 09/11/2024 Royce Day MD LAB BLOOD ORDERABLES Final Re sult Performing Organization Address City/[facility] de Phone Number [facility] [address] [place] [address] * (ABNORMAL) Comprehensive Metabolic Panel (09/11/2024 9:58 AM EST) Glucose 125(H) 70 - 99 mg/dL [facility] BUN 26 8 - 27 mg/dL [facility] Creatinine 1.56(H) 0.76 - 1.27 mg/dL [facility] eGFR CKD-EPI CR 2020 44(L) >59 mL/min/1.7 3 [facility] BUN/Creatinine Ratio 17 10 - 24 [facility] Sodium 141 134 - 144 mmol/L [facility] Potassium 4.3 3.5 - 5.2 mmol/L [facility] Chloride 102 96 - 106 mmol/L [facility] Bicarbonate (CO2) 25 20 - 29 mmol/L [facility] Calcium 9.4 8.6 - 10.2 mg/dL [facility] Albumin 4.0 3.7 - 4.7 g/dL [facility] Total Bilirubin 0.4 0.0 - 1.2 mg/dL [facility] Alkaline Phosphatase 64 44 - 121 IU/L [facility] AST (SGOT) 39 0 - 40 IU/L [facility] ALT (SGPT) 24 0 - 44 IU/L [facility] Total Protein 6.9 6.0 - 8.5 g/dL [facility] Globulin 2.9 1.5 - 4.5 g/dL [facility] 09/11/2024 9:58 AM EST 09/11/2024 us Royce Day MD LAB BLOOD ORDERABLES Final Re sult [facility] [address] [place] [address] from Last 3 Months Insurance Medicare [facility] Medicare [facility] [place] [id number] Care Teams Caponizer Relationship Specialty Start Date End Date Pedro Burnett DO [address] [place] [address] PCP - General 09/07/20
== END 2024-12-10 11:49 | disposition home or self-care (01) ==
LOC: HO.HUSH 11:19
PROVIDERS: PCP Family Medicine; Visit Provider Urology
DX: C61 Malignant neoplasm of prostate (principal)
CPT/HCPCS: 99214; G2211

== ENCOUNTER → 2024-12-10 11:19 | Outpatient (BNVA) | payer MEDICARE, OTHER, SELFPAY | PROVIDERS: PCP Family Medicine; Visit Provider Urology | DX: C61 Malignant neoplasm of prostate (principal) | CPT/HCPCS: 99212 ==

== ENCOUNTER 2025-01-01 10:33 | Outpatient (REF) | payer MEDICARE, OTHER, SELFPAY ==
--- NOTE | ~2025-01-01 | MR_ITS ---
EXAMINATION: MR ABDOMEN WITHOUT THEN WITH IV CONTRAST HISTORY: CYST OF PANCREAS, MASS ON EXAM COMPARISON: Comparison is made with the prior examination dated 11/30/2023. TECHNIQUE: Axial in and out of phase T1-weighted gradient echo, axial diffusion weighted, and axial and coronal HASTE T2 with fat saturation images were obtained through the abdomen. Subsequently, fat suppressed axial and coronal T1-weighted images were obtained after the intravenous administration of 6 mL Gadavist. FINDINGS: There is no significant signal loss within the liver on opposed phase imaging to suggest steatosis. There is no enhancing liver mass. There is no intra or extrahepatic biliary ductal dilatation. The hepatic and portal veins are patent. The gallbladder is unremarkable. There is new splenomegaly. The spleen measures approximately 12.8 x 9.2 x 5.4 cm which represents a significant increase in size from the prior study. No focal splenic lesion is identified. Again seen are innumerable cysts within the pancreas measuring up to 11 mm in the body and 8 mm in the uncinate process. There is no associated contrast enhancement or ductal dilatation. The adrenal glands are unremarkable. There is a 3.2 cm cyst at the upper pole of the right kidney and a 3.9 cm parapelvic cyst. Again seen is an enhancing soft tissue mass in the renal pelvis which was previously biopsied and shown to represent non-Hodgkin's lymphoma. The mass measures approximately 2.9 x 1.6 x 3.5 cm and appears similar in size to the prior study, allowing for differences in scan technique. There is a 1.2 cm cyst in the interpolar region of the left kidney. There are numerous enlarged retroperitoneal lymph nodes which are new from the prior study. Para-aortic nodes measure up to 2.0 cm in size. Aortocaval nodes measure up to 2.9 cm. Paracaval nodes measure up to 1.8 cm. No ascites is identified. The patient is status post lower lumbar fusion which causes magnetic susceptibility artifact. MR/MR abdomen wo/w con IMPRESSION: 1. 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 Continued follow-up is recommended. 2. 2.9 x 1.6 x 3.5 cm enhancing mass in the right renal pelvis, previously biopsied and shown to represent non-Hodgkin's lymphoma. This is similar in appearance to the prior study. 3. New splenomegaly. 4. New retroperitoneal lymphadenopathy as described which may represent progression of lymphoma. Electronically signed by: Isael Rodriguez MD 01/01/2025 12:28 PM EDT
[2025-01-01] MEDS: gadobutroL 7.5 ML VIAL IVPUSH (11:51)
--- OUTSIDE RECORDS SUMMARY | 2025-01-01 11:52 | XMS_ITS | Clinical Summary ---
Author Organization [facility] Address [address] [place] [address] Care Team Providers Care Supervisor Soldering Name Role Phone Pedro Burnett MD Primary Care Provider [phone] Allergies No known active allergies Medications Medication [...] this topic Medical Devices Implanted Type Area Medical Staff Services Manager Device Identifier Shelf Expiration Date Model / Serial / Lot Sealant Fibrin Vistaseal 4ml [employer] [id number] - [id number] Implanted:Qty : 1 on 07/29/2022 by [place] Bella [place] [facility] [place] Hemostatic Agent Posterior : Spine Lumbar J [employer] 12/28/2023 [id number] / / [id number] Sponge Surgifoam Gel 12 X 7mm [facility] [id number] - [id number] Implanted:Qty : 2 on 07/29/2022 by Gerald Bella MD [place] [facility] [place] [facility] [place] Hemostatic Agent Posterior : Spine Lumbar J [employer] 10/14/2025 1972 / / [id number] Surgiflo Hemostatic Matrix [employer] [id number] - [id number] Implanted:Qty : 1 on 07/29/2022 by Gerald Bella [place] [facility] [place] [facility] [place] Hemostatic Agent Posterior : Spine Lumbar JNJ [employer] 03/27/2024 2991 / / [id number] Putty Vesuvius 100 5ml Stry-K2m [id number] - [id number] Implanted:Qty : 1 on 07/29/2022 by Gerald Bella [place] [facility] [place] [facility] [place] Posterior : Spine Lumbar [employer] 02/25/2024 [id number] 0DP / [id number] / [id number] Putty Bone Graft 1.0ml Peptide Enhanced Cera-Manu [id number] - [id number] Implanted:Qty : 1 on 07/29/2022 by Gerald Bella [place] [facility] [place] [facility] [place] Posterior : Spine Lumbar [employer] 12/25/2024 700-010 / / [id number] Shell Short Flarehawk 25mm Fh9 Intg-Manu [id number] - [id number] Implanted:Qty : 1 on 07/29/2022 by Gerald Bella [place] [facility] [place] [facility] [place] Posterior : Spine Lumbar [employer] [id number] / / Cage Spinal Flarehawk 6 D L23 Intg-Manu [id number] [id number] - [id number] Implanted:Qty : 1 on 07/29/2022 by Gerald Bella [place] [facility] [place] [facility] Posterior : Spine Lumbar [employer] [id number] / / Screw Maureen Polyaxial Extended Tab 6.5x45mm Stry-K2m [id number] - [id number] Implanted:Qty : 2 on 07/29/2022 by Gerald Bella MD [place] [facility] [place] [facility] Posterior : Spine Lumbar [employer] [id number] / / Screw Set [place] Stry-K2m [id number] - [id number] Implanted:Qty : 4 on 07/29/2022 by Gerald Bella MD [place] [facility] [place] [facility] Posterior : Spine Lumbar [employer] [id number] 1 / / Maureen Fenest Polyaxial Extended Tab 6.5x40mm Stry-K2m [id number] 37806 - [id number] Implanted:Qty : 2 on 07/29/2022 by Gerald Bella MD [place] [facility] [place] [facility] Posterior : Spine Lumbar [employer] [id number] 40 / / Honorio Contr Blt Hex 5.5x35mm Stry-K2m [id number] 8133 - [id number] Implanted:Qty : 2 on 07/29/2022 by Gerald Bella MD [place] [facility] [place] [facility] Posterior : Spine Lumbar [employer] [id number] 5 / / Explanted Type Area Medical Staff Services Manager Device Identifier Shelf Expiration Date Model / Serial / Lot Pin Atkins Sd [id number] Hlf 30thrd Stry-Howm [id number] - [id number] Explanted:Qty: 2 on 07/29/2022 by Gerald Bella [place] [facility] [place] [facility] Right Posterior: Iliac Crest [employer] [id number] / / Advance Directives For more information, please contact: [phone] Latest Code Status on File Code Status Date Activated Date Inactivated Comments Full Code 07/29/2022 1:28 PM 07/30/2022 10:45 PM This code status was ascertained in the following way: discussion with patient . Care Teams Supervisor Soldering Relationship Specialty Start Date End Date Pedro Burnett MD [address] [place] [address] PCP - General Family Medicine 11/22/19
--- OUTSIDE RECORDS SUMMARY | 2025-01-01 11:52 | XMS_ITS | Clinical Summary ---
Author Organization [facility] Address [address] [place] [phone] Phone Care Team Providers Care Diet Therapist Name Role Phone Pedro Burnett DO Primary Care Provider [phone] Allergies No known active allergies Medications bisoprolol [...] of prostate 12/25/2022 Overview (12/25/2022): Dr. 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 [address] [facility] [facility] [address] [place] [phone] Royce Day MD [address] [facility] [address] [place] [address] Health Maintenance Due Date Last Done Comments Influenza Vaccine (Season Ended) 2025 07/20/2021, 06/06/2020, 06/24/2019, Additional history exists Pneumococcal Vaccine: 50+ Years Completed 10/28/2019, 10/25/2019, 04/15/2017 Pneumococcal Vaccine: Peds (0 to 5 Years) and At-Risk Patients (6 to 49 Years) Discontinued 10/28/2019, 10/25/2019, 04/15/2017 Hepatitis B Vaccine Aged Out No longe r eligible based on patient's age to complete this topic Insurance Medicare [facility] [place] [id number] Medicare [facility] [place] [id number] Care Teams Diet Therapist Relationship Specialty Start Date End Date Pedro Burnett DO [address] [place] [address] PCP - General 09/07/20
--- OUTSIDE RECORDS SUMMARY | 2025-01-01 11:52 | XMS_ITS | Data Portability ---
Author Organization [place] [facility] Address [address] [place] [id number] Care Team Providers Care Rating Officer Name Role Phone BILL HUMPHREY Primary Care [...] after care of this patient according to [facility]'s infection prevention protocols. Time On Scene with Patient: 00:41:57 [email or web address] Not available 05/20/2022 13:50:52 Plan of Treatment Reminders Order Date Submit Date Provider Last Modified By Organization Details Last Modified Time Details Appointments None recorded. Lab BMP + ionized calcium, serum or plasma 022 022 YADY [facility] (Centralized Electronic Ordering - All Locations), Patient Can Go To The Location Of Their Choice, [id number] 05:01:28 Referral None recorded. Procedures None recorded. Surgeries None recorded. Imaging None recorded. Medication Orders None recorded. Patient TargetsNo targets recorded. Patient Instructions Encounter Date Encounter Id Patient Instructions Last Modified By Organization Details Last Modified Time 04/22/2022 [id number] continue furosemide 20mg tablet daily continue potassium [...] A glu 132 mg/dL 70-105 Not Available [facility] [address] [place], [address], 05/20/2022 12:21:38 05/20/20 22 05/20/2022 BMP + IONIZ ED CALCI UM, SERUM OR PLASM A BUN 18 mg/dL 8-26 Not Available [facility] [address] [place], [address], 05/20/2022 12:21:38 05/20/20 22 05/20/2022 BMP + IONIZ ED CALCI UM, SERUM OR PLASM A crea 1.3 mg/dL 0.6-1. 3 Not Available [facility] [address] [place], [address], 05/20/2022 12:21:38 05/20/20 22 05/20/2022 BMP + IONIZ ED CALCI UM, SERUM OR PLASM A Na 140 mmol/ L 138-14 6 Not Available [facility] [address] [place], [address], 05/20/2022 12:21:38 05/20/20 22 05/20/2022 BMP + IONIZ ED CALCI UM, SERUM OR PLASM A K 4.1 mmol/ L 3.5-4. 9 Not Available [address], [address], 05/20/2022 12:21:38 05/20/20 22 05/20/2022 BMP + IONIZ ED CALCI UM, SERUM OR PLASM A cL 100 mmol/ L 98-109 Not Available [address], [address], 05/20/2022 12:21:38 05/20/20 22 05/20/2022 BMP + IONIZ ED CALCI UM, SERUM OR PLASM A TCO2 30 mmol/ L 24-29 Not Available [address], [address], 05/20/2022 12:21:38 05/20/20 22 05/20/2022 BMP + IONIZ ED CALCI UM, SERUM OR PLASM A angap 16 mmol/ L 10-20 Not Available [address], [address], 05/20/2022 12:21:38 05/20/20 22 05/20/2022 BMP + IONIZ ED CALCI UM, SERUM OR PLASM A ica 1.17 mmol/ L 1.12-1 .32 Not Available [address], [address], 05/20/2022 12:21:38 05/20/20 22 05/20/2022 BMP + IONIZ ED CALCI UM, SERUM OR PLASM A HCT 47 %pcv 38-51 Not Available [address], [address], 05/20/2022 12:21:38 05/20/20 22 05/20/2022 BMP + IONIZ ED CALCI UM, SERUM OR PLASM A Hb 16.0 g/dL 12-17 Not Available [address], [address], 05/20/2022 12:21:38 Result Notes None recorded. Procedures Surgical History Date Name Laterality Status Provider Name and Address Organization Details Recorded Time 05/20/20 Venipuncture - DH completed Constanza Singh NP [address], [place], [address], [place] [facility] 05/20/2022 13:03:03 removal of pilonidal cyst completed FABRIZIO HARRY [address], [place], [address], [place] [facility] 04/22/2022 15:44:21 Imaging Results [...] /min 118 mm[Hg] 56 mm[Hg] Not Available [facility] 15:41:30 Date Recorded Body temperature Heart rate Oxygen saturation Oxygen saturation in Arterial blood by Pulse oximetry Respiratory rate Systolic blood pressure Diastolic blood pressure Provider Name and Address Organization Details Last Updated DateTime 2 97.3 [degF] 78 /min 98 % 98 % 16 /min 128 mm[Hg] 64 mm[Hg] Not Available [facility] 2 17:42:01 Date Recorded Heart rate Body temperature Respiratory rate Oxygen saturation Oxygen saturation in Arterial blood by Pulse oximetry Systolic blood pressure Diastolic blood pressure Provider Name and Address Organization Details Last Updated DateTime 2 62 /min 97.6 [degF] 16 /min 99 % 99 % 124 mm[Hg] 72 mm[Hg] Not Available [facility] 2 12:07:02 Social History Question Answer Notes LastModified by Organizat ion Details LastModified Time Tobacco Smoking Status Current Every Day Smoker trying to quit. Using nicorete. FABRIZIO HARRY [facility] [place], [address], [place] [facility] 04/22/2022 15:45:11 Do You Have An Advance Directive? Yes [email or web address] Information not available 04/22/2022 What Is Your Code Status? Full Code [email or web address] Information not available 04/22/2022 Within The Past 12 Months, Has It Happened That The Food You Bought Just Didn't Last And You Didn't Have Money To Get More. No [email or web address] Information not available 04/22/2022 Within The Past 12 Months, Have You Worried That Your Food Would Run Out Before You Got Money To Buy More. No [email or web address] Information not available 04/22/2022 Fall Risk: Do You Feel Unsteady When Standing Or Walking? No [email or web address] Information not available 04/22/2022 We Know That How And When People Interact With Friends And Family Can Be Very Different From Person To Person. How Often Do You Have The Opportunity To See Or Talk To People That You Care About And Feel Close To? (Ex: Talking To Friends On The Phone Or Visiting Friends Or Family Or Going To Sikh Or Club Meetings) 3 Or 4 Times Per Week [email or web address] Information not available 04/22/2022 We Know From Many Of Our Patients That Covering All Of Their Costs Can Be Difficult At Times. This Can Cause Stress And Impact Health. In The Past Year, Have You Been Unable To Get Any Of The Following When It Was Really Needed? No [email or web address] Information not available 04/22/2022 What Is Your Housing Situation Today? I Have Housing [email or web address] Information not available 04/22/2022 Would You Like Help Connecting To Resources? None Information not available 04/22/2022 Sex: Unknown Functional Status None recorded. Mental Status None recorded. Family History Relationship Description Onset Age of this Age Resolved Age Notes LastModified by Organization Details LastModified Time Brother Congestive heart failure [email or web address] Not available 2021 15:47:28 Brother Coronary arterioscler osis [email or web address] Not available 2021 15:47:39 Medical History Condition Response Diabetes N Coronary Artery Disease N CHF N Parkinson's Disease N Cancer Y Dementia N Stroke N Depression N Asthma N COPD N Hypothyroidism N High Cholesterol Y Rheumatoid Arthritis N Pulmonary Embolism N Hypertension Y A-fib N Osteoporosis N Kidney Disease Y Past Encounters Encounter ID Performer Location Encounter Start Date Encounter Closed Date Diagnosis/Indication Diagnosis SNOMED-CT Code Diagnosis ICD10 Code Diagnosis Note [id number] [facility]IO [facility] [address] [place] [address] 04/22/2022 15:31:22 04/25/2022 09:11:02 Bilateral lower limb edema 100988295 R60.0 Essential hypertension 03926805 I10 [id number] FABRIZIO Wagoner [facility] [address] [employer] 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 [address] 05/20/2022 11:48:19 05/23/2022 08:07:56 Bilateral lower limb edema 746759676 R60.0 Health Concerns Section Related Observation LastModified by Organization Detai ls LastModified Time None Recorded Concern Status LastModified by Organization Details LastModified Time None Recorded Advance Directives Directive Y: Payers Insurance Date Sequence Insurance Name Policy Number Policy Diop Covered Member ID Diop Member ID Guarantor Name 04/21/2022 2 [facility]LY [facility] - [place] - DOS PRIOR TO 2024 (PPO) Dontae Ferrari [id number] WILSON Nelson Marozzi 04/21/2022 2 [employer] - [place] - DOS PRIOR TO 2024 (PPO) Dontae Ferrari [id number] WILSON Nelson Marozzi 05/24/2022 2 [employer] - [place] - DOS PRIOR TO 2024 (PPO) Dontae Ferrari [id number] WILSON Nelson Marozzi 05/16/2022 1 [place]IC[place]: [employer]ATIONAL [place] [employer] Dontae Ferrari [id number] Nelson Ferrari Notes Date Note Type Note Provider Name [...] healing well. FABRIZIO HARRY [address], [place], [address], [place] [facility] 04/22/2022 16:31:43 05/16/2022 text/html [...] c/o today. FABRIZIO Munoz [address], [place], [address], [place] [facility] 05/16/2022 19:26:34 05/20/2022 text/html [...] left. Constanza Singh NP [address], [place], [address], [place] [facility] 05/20/2022 13:51:04
--- OUTSIDE RECORDS SUMMARY | 2025-01-01 11:52 | XMS_ITS | Clinical Summary ---
Author Organization [facility] Address [address] [place] [address] Care Team Providers Care [employer] Science Teacher Name Role Phone Pedro Burnett DO Primary Care Provider [phone] Bon Sheikh MD Unavailable [phone] Allergies No known active allergies Medications furosemide (LASIX) 20 MG tablet Take 2 tablets (40 mg total) by mouth daily. Pt taking 20 mg daily Active bisoprolol (ZEBeta) 5 MG tablet Take 1.5 tablets (7.5 mg total) by mouth daily. Active levothyroxine (SYNTHROID, LEVOTHROID) 50 MCG tablet Take 1 tablet (50 mcg total) by mouth daily on an empty stomach. Active ezetimibe-simva statin (VYTORIN) 10-80 MG per tablet Take 1 tablet by mouth nightly. Active Vitamin D3 (CHOLECALCIFERO L) 50 MCG (2000 UT) tablet Take 1 [...] supraventricular tachycardia) 0 11/29/2021 Overview (11/29/2021): --Holter [id number] frequent PACs with multiple runs of SVT, [...] at Not on file Legal Sex Male 11:40 AM EST Gender Identity Male 10/28/2021 3:47 PM EST [...] Description 05/23/2025 11:00 AM EDT Office Visit [facility] [place] [address] [address] Bon Sheikh MD [address] [place] [address] Health Maintenance Due Date Last Done Comments DTaP/Tdap/Td Vaccines (1 - Tdap) 11[birth year]20/1959 Pneumococcal Vaccines 50+ (1 of 2 - PCV) 11/20/1959 Zoster (Shingles) Vaccine (1 of 2) 11/20/1959 RSV Vaccine 60 years and older and Patients (1 - 1-dose 75+ series) 11/20/2014 COVID-19 Vaccine ( - season) 2024 06/29/2023, 01/20/2022, 07/19/2021, Additional history exists Influenza Vaccine 03/28/2025 06/21/2023, , 07/07/2021, Additional history exists Hepatitis B Vaccines Aged Out No long er eligible based on patient's age to complete this topic Insurance MEDICARE PART A & B [facility] [place]NDE[place] [id number] Care Teams [employer] Science Teacher Relationship Specialty Start Date End Date Pedro Burnett DO [address] [place] [address] PCP - General 10/06/21 Bon Sheikh MD [address] [place] [address] Primary Co Op Cardiovascular Disease 10/06/21
== END 2025-01-01 10:34 | disposition home or self-care (01) ==
LOC: HO.MRI 10:33
PROVIDERS: PCP Family Medicine; Visit Provider Family Medicine
DX: K86.2 Cyst of pancreas (principal); C85.90 Non-Hodgkin lymphoma, unspecified, unspecified site
CPT/HCPCS: 74183; A9585

== ENCOUNTER → 2025-01-01 10:45 | Outpatient (BNV) | payer MEDICARE, OTHER, SELFPAY | PROVIDERS: PCP Family Medicine; Visit Provider Radiology Diagnostic Radiology | DX: K86.2 Cyst of pancreas (principal); N28.89 Other specified disorders of kidney and ureter; R16.1 Splenomegaly, not elsewhere classified | CPT/HCPCS: 74183 ==

== ENCOUNTER 2025-08-15 14:45 | Outpatient (REF) | payer MEDICARE, OTHER, SELFPAY ==
--- NOTE | ~2025-08-15 | MR_ITS ---
EXAMINATION: MR ABDOMEN WITHOUT THEN WITH IV CONTRAST HISTORY: Assess response to treatment Hodgkin's lymphoma COMPARISON: Comparison is made with the prior examination dated 01/01/2025. TECHNIQUE: Axial in and out of phase T1-weighted gradient echo, axial diffusion weighted, and axial and coronal HASTE T2 with fat saturation images were obtained through the abdomen. Subsequently, fat suppressed axial and coronal T1-weighted images were obtained after the intravenous administration of 5.5 mL Gadavist. FINDINGS: Liver: There is no loss of signal intensity in the liver on opposed phase imaging to suggest steatosis. There is a 9 mm wedge-shaped arterially enhancing focus in segment V which may represent a perfusion abnormality. Scattered smaller enhancing foci are also noted. The hepatic and portal veins are patent. There is no intrahepatic biliary dilatation. Gallbladder/biliary tree: No gallstones are identified. The common bile duct is normal in caliber. No intraluminal filling defects are identified to suggest choledocholithiasis. Spleen: The spleen is top normal in size. No focal splenic abnormality is identified. Pancreas: Again seen are numerous cysts throughout the pancreas measuring up to 9 mm in size. There is no enhancing pancreatic mass. The pancreatic duct is normal in caliber. Adrenals: The adrenal glands are unremarkable. Kidneys: Again seen are bilateral renal cysts measuring up to 4.0 cm on the right and 1.8 cm on the left. There is no hydronephrosis. Lymph nodes: A soft tissue mass in the region of the right renal hilum smaller measuring 2.8 x 1.1 x 1.4 cm (previously 2.9 x 1.6 x 3.5 cm). Aortocaval lymph nodes measure up to 10 mm in diameter (previously 2.9 cm). Para-aortic lymph nodes measure up to 1.0 cm (previously 2.0 cm). Fluid: There is trace free fluid in the pelvis. Visualized bowel: The visualized small and large bowel loops are unremarkable in appearance. Visualized bones: The patient is status post lower lumbar fusion. There is degenerative disc disease of the spine. MR/MR abdomen wo/w con IMPRESSION: 1. Improvement in previously seen right renal hilar and retroperitoneal lymphadenopathy as described. 2. 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 Electronically signed by: Isael Rodriguez MD 08/18/2025 07:29 AM EST
--- OUTSIDE RECORDS SUMMARY | 2025-08-15 16:07 | XMS_ITS | Clinical Summary ---
Author Organization [facility] Address [address] [place] [address] Care Team Providers Care Stage Producer Name Role Phone Pedro Burnett DO Primary Care Provider [phone] Bon Sheikh MD Unavailable [phone] Allergies No known active allergies Medications furosemide [...] supraventricular tachycardia) 0 11/29/2021 Overview (11/29/2021): --Holter [id number] frequent PACs with multiple runs of SVT, [...] Care Team (Late st Contact Info) Description 09/12/2025 11:30 AM EST Office Visit [facility] [place] [address] [address] Bon Sheikh MD [address] [place] [phone] Health Maintenance Due Date Last Done Comments Advance Care Planning 1940 DTaP/Tdap/Td Vaccines (1 - Tdap) 11/20/1959 Pneumococcal Vaccines 50+ (1 of 2 - PCV) 11/20/1958 Zoster (Shingles) Vaccine (1 of 2) 11/20/1959 RSV Vaccine 50 years and older and Patients (1 - 1-dose 75+ series) 11/20/2014 Influenza Vaccine 03/28/2025 06/21/2023, , 07/07/2021, Additional history exists COVID-19 Vaccine ( season) 2025 06/29/2023, 01/20/2022, 07/19/2021, Additional history exists Hepatitis B Vaccines Aged Out No long er eligible based on patient's age to complete this topic Insurance MEDICARE PART A & B [facility] [place] [id number] Care Teams Stage Producer Relationship Specialty Start Date End Date Pedro Burnett DO [address] [place] [address] PCP - General 10/06/21 Bon Sheikh MD [address] [place] [address] Primary Wellness Director Cardiovascular Disease 10/06/21
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
--- OUTSIDE RECORDS SUMMARY | 2025-08-15 16:07 | XMS_ITS | Clinical Summary ---
Author Organization [facility] Address [address] [place] [address] Phone Care Team Providers Care Sql Server Dba Name Role Phone Pedro Burnett DO Primary Care Provider [phone] Encounters Date Type Department Care Team Description 06/03/2025 12:08 PM EDT - 06/03/2025 11:59 PM EDT Hospital Encounter [facility] PET Scan [address] [place] [address] Non-Hodgkin lymphoma, unspecified, unspecified site ([facility] V24, [facility] V28) Discharge Disposition: Home or Self Care from Last 3 Months Surgical History Surgery Date Site/Laterality Comments OTHER SURGICAL HISTORY PROCEDURE:INSERTION PROSTATE RADIATION SEED URETERAL STENT PLACEMENT Left PROCEDURE:URETERAL STENT PLACEMENT LUMBAR FUSION 07/29/2022 Posterior PROCEDURE:LUMBAR FUSION;COMMENT:Procedure: L4-5 FUSION SPINE LUMBAR POSTERIOR MINIMALLY INVASIVE- TLIF; Surgeon: Gerald Bella MD; Location: [facility] MAIN OPERATING ROOM; Service: Spine; Laterality: Posterior; SPINE SURGERY 07/29/2022 N/A PROCEDURE:SPINE SURGERY;COMMENT:Procedure: ARTHRODESIS LUMBAR POSTERIOR INTERBODY TECHNIQUE SINGLE INTERSPACE; Surgeon: Gerald Bella MD; Location: [facility] MAIN OPERATING ROOM; Service: Spine; Laterality: N/A; AUTOGRAFT/SPINE SURGERY 07/29/2022 N/A PROCEDURE:AUTOGRAFT/SPINE SURGERY;COMMENT:Procedure: AUTOGRAFT BONE SPINE; Surgeon: Gearld Bella MD; Location: [facility] MAIN OPERATING ROOM; Service: Spine; Laterality: N/A; Medical History Medical History Date Comments Prostate cancer ([facility] V24, [facility] V28) DX:Prostate cancer (HCC) Laryngeal cancer ([facility] V24, [facility] V28) DX:Laryngeal cancer (HCC) Palpitations DX:Palpitations Hypothyroid [...] on file Sexual Orientation Not on file Last Filed Vital Signs [...] Health Maintenance Due Date Last Done Comments DTaP,Tdap,and Td Vaccines (1 - Tdap) 11/20/1959 Cholesterol Screening (Lipid Panel) 07/31/2022 Falls Risk Assessment 07/31/2022 Medicare Annual Wellness Visit 07/31/2022 Social Influencers of Health Screening 07/31/2022 Depression Screening 08/28/2024 COVID-19 Vaccine ( season) 2025 07/11/2024, 06/29/2023, 10/01/2022, Additional history exists Influenza Vaccine (#1) 2025 , 06/21/2023, 06/09/2022, Additional history exists Hypertension/CHF/CAD Annual BMP Blood Test 03/11/2026 03/11/2025, 03/11/2025, 09/11/2024, Additional history exists RSV Immunization Adult Patients Completed 06/29/2023 Zoster Vaccines Completed 06/17/2024, 01/23/2024 Pneumococcal Vaccine: 50+ Years Completed 07/11/2024, 10/25/2019, 04/15/2017 HIB Vaccines Aged Out No longer eligi [...] to complete this topic RSV Immunization Patients Under 20 months Aged Out No longer eligible based on patient's age to complete this topic Varicella Vaccines Aged Out No longer eligible based on patient's age to complete this topic Medical Devices Implanted Type Area Welding Equipment Sales Representative Device Identifier Shelf Expiration Date Model / Serial / Lot Sponge Surgifoam Gel 12 X [facility]mm [id number] Implanted:Qty: 2 on 07/29/2022 by Gerald Bella MD Implants N/A: Spine Lumbar [employer] 10/14/2025 1972 / / [id number] Surgiflo Hemostatic Matrix [facility] [id number] Implanted:Qty: 1 on 07/29/2022 by Gerald Bella MD Implants N/A: Spine Lumbar [employer] 03/27/2024 2991 / / [id number] Sealant Fibrin Vistaseal 4ml [facility] [id number] Implanted:Qty: 1 on 07/29/2022 by Gerald Bella MD Implants N/A: Spine Lumbar [employer] 12/28/2023 [id number] / / [id number] Putty Vesuvius 100 5ml Stry-K2m [id number] - [id number] Implanted:Qty: 1 on 07/29/2022 by Gerald Bella MD N/A: Spine Lumbar [employer] 02/25/2024 [id number] [id number] / [id number] / [id number] Putty Bone Graft 1.0ml Peptide Enhanced [facility] [id number] Implanted:Qty: 1 on 07/29/2022 by Gerald Bella MD N/A: Spine Lumbar [employer] 12/25/2024 [id number] / / [id number] Shell Short Flarehawk 25mm Fh9 [id number] Implanted:Qty: 1 on 07/29/2022 by Gerald Bella MD N/A: Spine Lumbar [employer] [id number] / / Cage Spinal Flarehawk 6 D L23 [facility] [id number] Implanted:Qty: 1 on 07/29/2022 by Gerald Bella MD N/A: Spine Lumbar [employer] [id number] / / Screw Maureen Polyaxial Extended Tab 6.5x45mm Stry-K2m [id number] Implanted:Qty: 2 on 07/29/2022 by Gerald Bella MD N/A: Spine Lumbar [employer] [id number] / / Screw Set [place] Stry-K2m [id number] Implanted:Qty: 4 on 07/29/2022 by Gerald Bella MD N/A: Spine Lumbar [employer] [id number] 1 / / Maureen Fenest Polyaxial Extended Tab 6.5x40mm Stry-K2m [id number] Implanted:Qty: 2 on 07/29/2022 by Gerald Bella MD N/A: Spine Lumbar [employer] [id number] 40 / / Honorio Contr Blt Hex 5.5x35mm Stry-K2m [id number] Implanted:Qty: 2 on 07/29/2022 by Gerald Bella MD N/A: Spine Lumbar [employer] [id number] / / Procedures Procedure Name Priority Date/Time Associated Diagnosis Comments PET CT SKULL TO MID THIGH SUBSEQUENT Routine 06/03/2025 2:25 PM EDT Non-Hodgkin lymphoma, unspecified, unspecified site ([facility] V24, [facility] V28) from Last 3 Months Results * PET CT Skull to Mid Thigh Subsequent (06/03/2025 2:25 PM EDT) Anatomical Region Laterality Modality Body Radiographic Geovanna ging 06/11/2025 3:11 PM EDT Impressions 06/11/2025 3:25 PM EDT Metabolically active soft tissue mass in the right renal infrahilar region. Interval increase in activity of retroperitoneal lymphadenopathy with new adenopathy suspected within the portal caval and dariela hepatis regions. New activity within the enlarged uncinate process of the pancreas suspicious of lymphomatous disease versus developing primary pancreatic neoplasm. Recommend CT scan of the abdomen and pelvis with both intravenous and oral contrast. -------- FINAL REPORT -------- Dictated By: Fahad Novak Dictated Date: 06/11/2025 15:11 ET Assigned Physician: Fahad Novak Reviewed and Electronically Signed By: Fahad Novak Signed Date: 06/11/2025 15:25 ET Workstation ID: [id number] Transcribed By: Self Edit Transcribed Date: 06/11/2025 15:11 ET Narrative 06/11/2025 3:25 PM EDT History: Non-Hodgkin's lymphoma, subsequent treatment strategy, history of laryngeal and prostate carcinoma Comparison: CT dated April 30, 2024 Radiopharmaceutical: 13.8 mCi of F-18 FDG IV given 62 minutes prior to imaging. Blood glucose: 116 mg/dl. CT Dose: 481 DLP (mGy-cm) Routine body FDG PET-CT imaging was performed from the top of the skull through the mid thighs and reconstructed in axial, coronal, and sagittal planes at the computer workstation with fused data from both the PET imaging study and attenuation correction CT. The CT portion of the examination was done strictly for attenuation correction and is not a true diagnostic CT examination. PET 5-point scale (Deauville Criteria) Mediastinum uptake SUV max = 2.2 Liver uptake SUV max = 2.8 Score 1 - No uptake. Score 2 - Uptake less or equal to mediastinum. Score 3 - Uptake more than mediastinum but less or equal to liver. Score 4 - Uptake moderately higher than liver. Score 5 - Uptake markedly higher than liver and/or new lesions. Score X - New areas of uptake unlikely to be related to lymphoma. FINDINGS: HEAD AND NECK: Focal FDG activity within the retropharynx at the upper posterior aspect of the thyroid cartilage SUV max of 5.2 is nonspecific. No focal soft tissue abnormality. No FDG avid cervical nodes. THORAX: Mild focal activity within nonenlarged right axillary node SUV max of 2.3. ABDOMEN/PELVIS: Mild FDG activity within the right renal infrahilar region SUV max of 3.8 likely related to residual soft tissue attenuation rather than the collecting system however this is difficult to discern due to location. Interval increase in FDG avid retroperitoneal nodes with SUV max up to 4.5. Nodes are located in the para-aortic region as well as along left common iliac vessels and are overall increased in size and number. No FDG value was reported on the prior study. Increased FDG activity noted along the enlarged uncinate head of the pancreas with SUV max up to 3.5. FDG activity extending towards the portal caval and dariela hepatis regions also suspicious for ping activity. MUSCULOSKELETAL: No abnormal activity. Procedure Note Fahad Novak MD - 06/11/2025 History: Non-Hodgkin's lymphoma, subsequent treatment strategy, history oflaryngeal and prostate carcinoma Comparison: CT dated April 30, 2024 Radiopharmaceutical: 13.8 mCi of F-18 FDG IV given 62 minutes prior toimaging. Blood glucose: 116 mg/dl. CT Dose: 481 DLP (mGy-cm) Routine body FDG PET-CT imaging was performed from the top of the skullthrough the mid thighs and reconstructed in axial, coronal, and sagittalplanes at the computer workstation with fused data from both the PETimaging study and attenuation correction CT. The CT portion of theexamination was done strictly for attenuation correction and is not a truediagnostic CT examination. PET 5-point scale (Deauville Criteria) Mediastinum uptake SUV max = 2.2 Liver uptake SUV max = 2.8 Score 1 - No uptake. Score 2 - Uptake less or equal to mediastinum. Score 3 - Uptake more than mediastinum but less or equal to liver. Score 4 - Uptake moderately higher than liver. Score 5 - Uptake markedly higher than liver and/or new lesions. Score X - New areas of uptake unlikely to be related to lymphoma. FINDINGS: HEAD AND NECK: Focal FDG activity within the retropharynx at the upperposterior aspect of the thyroid cartilage SUV max of 5.2 is nonspecific.No focal soft tissue abnormality. No FDG avid cervical nodes. THORAX: Mild focal activity within nonenlarged right axillary node SUV maxof 2.3. ABDOMEN/PELVIS: Mild FDG activity within the right renal infrahilar regionSUV max of 3.8 likely related to residual soft tissue attenuation ratherthan the collecting system however this is difficult to discern due tolocation. Interval increase in FDG avid retroperitoneal nodes with SUV max up to4.5. Nodes are located in the para-aortic region as well as along leftcommon iliac vessels and are overall increased in size and number. No FDGvalue was reported on the prior study. Increased FDG activity noted along the enlarged uncinate head of thepancreas with SUV max up to 3.5. FDG activity extending towards the portalcaval and dariela hepatis regions also suspicious for ping activity. MUSCULOSKELETAL: No abnormal activity. IMPRESSION: Metabolically active soft tissue mass in the right renal infrahilarregion. Interval increase in activity of retroperitoneal lymphadenopathy with newadenopathy suspected within the portal caval and dariela hepatis regions. New activity within the enlarged uncinate process of the pancreassuspicious of lymphomatous disease versus developing primary pancreaticneoplasm. Recommend CT scan of the abdomen and pelvis with both intravenous and oralcontrast. -------- FINAL REPORT -------- Dictated By: Fahad Novak Dictated Date: 06/11/2025 15:11 ET Assigned Physician: Fahad Novak Reviewed and Electronically Signed By: Fahad Novak Signed Date: 06/11/2025 15:25 ET Workstation ID: [id number] Transcribed By: Self Edit Transcribed Date: 06/11/2025 15:11 ET Casie Daniel MD IM NM PROCEDURES Final Result from Last [address] [place] [address] MEDICARE IRA [facility] Advance Directives Documents on File Type Date Recorded Patient Claims Support Specialist Expl anation Health Care Decision (hx) 06/10/2015 [...] DIRECTIVE Health Care Decision (hx) 09/09/2009 AD NEGORN DIRECTIVE Health Care Decision (hx) 09/09/2009 AD [...] (hx) 09/09/2009 AD NEGRON DIRECTIVE Care Teams Sql Server Dba Relationship Specialty Start Date End Date Pedro Burnett DO [address] [place] [address] PCP - General Family Medicine 11/22/19
--- OUTSIDE RECORDS SUMMARY | 2025-08-15 16:07 | XMS_ITS ---
Author Name [facility] Organization Unknown History of Medication Use Medication Directions Dispensed Refills Start Date End Date Stat Magnesium Oxide 250 MG Tab tablet Take 1 tablet (250 mg total) by mouth daily. Take 2 hours apart from other medications; take with food 11/29/2021 05/26/2022 aborted aspirin 81 MG chewable tablet Chew 1 tablet (81 mg total) daily. 05/17/2023 active potassium chloride (KLOR-CON M10) 10 MEQ tablet Take 10 mEq by mouth daily. Swallow tablet whole; do not crush 06/27/2022 aborted felodipine (PLENDIL) 2.5 MG 24 hr tablet Take 2.5 mg by mouth daily. 05/26/2022 aborted L-Tryptophan 500 MG Cap Take by mouth. 05/26/2022 aborted olsalazine (DIPENTUM) 250 MG capsule Take 500 mg by mouth 2 (two) times a day. 05/26/2022 aborted bisoprolol (ZEBeta) 5 MG tablet Take 1.5 tablets (7.5 mg total) by mouth daily. active ezetimibe-simvastati n (VYTORIN) 10-80 MG per tablet Take 1 tablet by mouth nightly. active furosemide (LASIX) 20 MG tablet Take 40 mg by mouth daily. active levothyroxine (SYNTHROID, LEVOTHROID) 50 MCG tablet Take 1 tablet (50 mcg total) by mouth daily on an empty stomach. active melatonin 3 MG Tab tablet Take 1 tablet (3 mg total) by mouth nightly. active melatonin 3 MG Tab tablet Take 10 mg by mouth nightly. active potassium chloride (KLOR-CON M20) 20 MEQ tablet Take 1 tablet (20 mEq total) by mouth daily. Swallow whole, do not crush. Take with food active traZODone (DESYREL) 100 MG tablet Take 1 tablet (100 mg total) by mouth nightly. active Vitamin D3 (CHOLECALCIFEROL) 50 MCG (2000 UT) tablet Take 1 tablet (2,000 Units total) by mouth daily. active Problems Problem Status Onset Date Problem Type Date of Resoluti on Source Heart murmur active 2021-10-06 ProblemAct [facility] Primary hypertension active 2021-10-06 ProblemAct [facility] Laryngeal cancer active 2021-10-06 ProblemAct H [facility] Stage 3b chronic kidney disease active 2021-10-06 ProblemAct [facility] Palpitations active 2021-11-29 ProblemAct [facility] PSVT (paroxysmal supraventricular tachycardia) active 2021-11-29 ProblemAct [facility] Mixed hyperlipidemia active 2021-10-06 ProblemAct [facility] Encounters Encounter Type Encounter Reason Primary Diagnosis Location Date Ambulatory Essential (primary) hypertension Essential (primary) hypertension [facility] 4 Ambulatory Supraventricular tachycardia Supraventricular tachycardia [facility] 3 Ambulatory Palpitations [facility] 3 Ambulatory Encounter for preprocedural cardiovascular examination [facility] 2 Ambulatory Supraventricular tachycardia [facility] 2 Ambulatory Palpitations [facility] 2 Ambulatory Palpitations [facility] 2 Ambulatory Cardiac murmur, unspecified [facility] 2 Ambulatory Palpitations [facility] 2 Care Team Organization Name Specialty Phone Email Start Date End Da te [facility] PEDRO HUMPHREY Primary Care 08/14/2025 [facility] PEDRO HUMPHREY Primary Care 06/27/2022 11/14/19 [facility] Pedro Humphrey Primary Care 10/06/2021 06/27/20
--- OUTSIDE RECORDS SUMMARY | 2025-08-15 16:07 | XMS_ITS | Data Portability ---
Author Organization [place] [facility] Address [address] [place] [address] Care Team Providers Care Ribbon Sweatband Operator Name Role Phone BILL HUMPHREY Primary Care [...] trauma Neuro: No focal deficits, A&O x4, CN s II-XII grossly normal, speech clear, no [...] I have accessed patient records on the [employer] old pt records. This information was pertinent in my medical decision making today. [email or web address] Not available 05/16/2022 19:26:26 05/20/2022 05/20/2022 Overview/History [...] after care [facility]. Time On Scene with Patient: 00:41:57 [email or web address] Not available 05/20/2022 13:50:52 Plan of Treatment Reminders Order Date Submit Date Provider Last Modified By Organization Details Last Modified Time Details Appointments None recorded. Lab BMP + ionized calcium, serum or plasma 022 YADY [facility] (Centralized Electronic Ordering - All Locations), Patient Can Go To The Location Of Their Choice, [id number] 05:01:28 Referral None recorded. Procedures None recorded. Surgeries None recorded. Imaging None recorded. Medication Orders None recorded. Patient TargetsNo targets recorded. Patient Instructions Encounter Date Encounter Id Patient Instructions Last Modified By Organization Details Last Modified Time 04/22/2022 [id number] continue furosemide 20mg tablet daily continue potassium [...] A glu 132 mg/dL 70-105 Not Available [facility] [address] [place], [address], 05/20/2022 12:21:38 05/20/20 22 05/20/2022 BMP + IONIZ ED CALCI UM, SERUM OR PLASM A BUN 18 mg/dL 8-26 Not Available [facility] [address] [place], [address], 05/20/2022 12:21:38 05/20/20 22 05/20/2022 BMP + IONIZ ED CALCI UM, SERUM OR PLASM A crea 1.3 mg/dL 0.6-1. 3 Not Available [facility] [address] [place], [address], 05/20/2022 12:21:38 05/20/20 22 05/20/2022 BMP + IONIZ ED CALCI UM, SERUM OR PLASM A Na 140 mmol/ L 138-14 6 Not Available Den [facility] h [address] [place], [address], 05/20/2022 12:21:38 05/20/20 22 05/20/2022 BMP + IONIZ ED CALCI UM, SERUM OR PLASM A K 4.1 mmol/ L 3.5-4. 9 Not Available [facility] [address], [place], [address], 05/20/2022 12:21:38 05/20/20 22 05/20/2022 BMP + IONIZ ED CALCI UM, SERUM OR PLASM A cL 100 mmol/ L 98-109 Not Available [address], [address], 05/20/2022 12:21:38 05/20/20 22 05/20/2022 BMP + IONIZ ED CALCI UM, SERUM OR PLASM A TCO2 30 mmol/ L 24-29 Not Available [address], [address], 05/20/2022 12:21:38 05/20/20 22 05/20/2022 BMP + IONIZ ED CALCI UM, SERUM OR PLASM A angap 16 mmol/ L 10-20 Not Available [address], [address], 05/20/2022 12:21:38 05/20/20 22 05/20/2022 BMP + IONIZ ED CALCI UM, SERUM OR PLASM A ica 1.17 mmol/ L 1.12-1 .32 Not Available [address], [address], 05/20/2022 12:21:38 05/20/20 22 05/20/2022 BMP + IONIZ ED CALCI UM, SERUM OR PLASM A HCT 47 %pcv 38-51 Not Available [address], [address], 05/20/2022 12:21:38 05/20/20 22 05/20/2022 BMP + IONIZ ED CALCI UM, SERUM OR PLASM A Hb 16.0 g/dL 12-17 Not Available [address], [address], 05/20/2022 12:21:38 Result Notes None recorded. Procedures Surgical History Date Name Laterality Status Provider Name and Address Organization Details Recorded Time 05/20/20 Venipuncture - DH completed Constanza Singh NP [address] [place], [address], [place] [facility] 05/20/2022 13:03:03 removal of pilonidal cyst completed FABRIZIO HARRY [address], [place], [address], [place] [facility] 04/22/2022 15:44:21 Imaging Results [...] Not Available Vitals Date Recorded Oxygen saturation Body temperature Respiratory rate Heart rate Systolic And Diastolic Provider Name and Address Organization Details Last Updated DateTime 2 99 % 97.5 [degF] 16 /min 70 /min 118/56 mm[Hg] Not Available [facility] 15:41:30 Date Recorded Body temperature Heart rate Oxygen saturation Respiratory rate Systolic And Diastolic Provider Name and Address Organization Details Last Updated DateTime 2 97.3 [degF] 78 /min 98 % 16 /min 128/64 mm[Hg] Not Available [facility] 17:42:01 Date Recorded Heart rate Body temperature Respiratory rate Oxygen saturation Systolic And Diastolic Provider Name and Address Organization Details Last Updated DateTime 2 62 /min 97.6 [degF] 16 /min 99 % 124/72 mm[Hg] Not Available [facility] 12:07:02 Social History Question Answer Notes LastModified by Organizat ion Details LastModified Time Tobacco Smoking Status Current Every Day Smoker trying to quit. Using nicorete. FABRIZIO HARRY [address], [place], [address], [place] [facility] 04/22/2022 15:45:11 Do You Have An Advance Directive? Yes [email or web address] Information not available 04/22/2022 What Is Your Code Status? Full Code Information not available 04/22/2022 Within The Past 12 Months, Has It Happened That The Food You Bought Just Didn't Last And You Didn't Have Money To Get More. No [email or web address] Information not available 04/22/2022 Within The Past 12 Months, Have You Worried That Your Food Would Run Out Before You Got Money To Buy More. No [email or web address] Information not available 04/22/2022 Fall Risk: Do You Feel Unsteady When Standing Or Walking? No [email or web address] Information not available 04/22/2022 We Know That How And When People Interact With Friends And Family Can Be Very Different From Person To Person. How Often Do You Have The Opportunity To See Or Talk To People That You Care About And Feel Close To? (Ex: Talking To Friends On The Phone Or Visiting Friends Or Family Or Going To Jainism Or Club Meetings) 3 Or 4 Times Per Week [email or web address] Information not available 04/22/2022 We Know From Many Of Our Patients That Covering All Of Their Costs Can Be Difficult At Times. This Can Cause Stress And Impact Health. In The Past Year, Have You Been Unable To Get Any Of The Following When It Was Really Needed? No [email or web address] Information not available 04/22/2022 What Is Your Housing Situation Today? I Have Housing [email or web address] Information not available 04/22/2022 Would You Like Help Connecting To Resources? None [email or web address] Information not available 04/22/2022 Sex: Unknown Functional Status None recorded. Mental Status None recorded. Family History Relationship Description Onset Age of this Age Resolved Age Notes LastModified by Organization Details LastModified Time Brother Congestive heart failure [email or web address] Not available 2021 15:47:28 Brother Coronary arterioscler osis [email or web address] Not available 2021 15:47:39 Medical History Condition Response Diabetes N Coronary Artery Disease N CHF N Parkinson's Disease N Cancer Y Stroke N Dementia N Asthma N Hypothyroidism N Depression N COPD N High Cholesterol Y Rheumatoid Arthritis N Pulmonary Embolism N Hypertension Y A-fib N Osteoporosis N Kidney Disease Y Past Encounters Encounter ID Performer Location Encounter Start Date Encounter Closed Date Diagnosis/Indication Diagnosis SNOMED-CT Code Diagnosis ICD10 Code Diagnosis IMO Codes Diagnosis Note [id number] FABRIZIO [facility]Y [facility] [address] [place] [address] 04/22/2022 15:31:22 04/25/2022 09:11:02 Bilateral lower limb edema 786009552 R60.0 Essential hypertension 64608590 I10 [id number] FABRIZIO [facility]er [facility] [address] [place] [address] 05/16/2022 17:12:55 05/17/2022 15:17:13 Bilateral lower limb edema 031225755 R60.0 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 [id number] Constanza Singh NP [facility] [address] [address] 05/20/2022 11:48:19 05/23/2022 08:07:56 Bilateral lower limb edema 677135683 R60.0 Health Concerns Section Related Observation LastModified by Organization Detai ls LastModified Time None Recorded Concern Status LastModified by Organization Details LastModified Time None Recorded Advance Directives Directive Y: Payers Insurance Date Sequence Insurance Name Policy Number Policy Diop Covered Member ID Diop Member ID Guarantor Name 04/21/2022 2 REPLACED BY [facility] - [place] - DOS PRIOR TO 2024 (PPO) Dontae Ferrari [id number] WILSON Nelson Parkerozzi 04/21/2022 2 [employer] - [place] - DOS PRIOR TO 2024 (PPO) Dontae Ferrari [id number] WILSON Nelson Parkerozzi 05/24/2022 2 [employer] - [place] - DOS PRIOR TO 2024 (PPO) Dontae Ferrari [id number] WILSON Nelson Parkerozzi 05/16/2022 1 MEDIC[place]: [employer] Dontae Ferrari [id number] Nelson Ferrari Notes Date Note Type [...] to be healing well. FABRIZIO HARRY [address], [place], [address], [place] [facility] 04/22/2022 16:31:43 05/16/2022 text/html 81 YOM known [...] concerns or c/o today. FABRIZIO Munoz [address], [place], [address], [place] [facility] 05/16/2022 19:26:34 05/20/2022 text/html 81 yo m has DHFU following increase in lasix 4 days ago. He was seen for bilateral lower leg edema. Weight has come down from 138.6 - 137.8 with some reduction of edema. Attempted to f/u with pcp but was told to keep the appointment with instead. Has a f/u with PCP 06/20/22. He is elevating his legs a few times throughout the day but is unable to do this much at night. Has f/u ortho surgeon early May as he has had continued numbness and tingling feeling of both leg but more on the left. Constanza Singh NP [address], [place], [address], [place] [facility] 05/20/2022 13:51:04
--- OUTSIDE RECORDS SUMMARY | 2025-08-15 16:07 | XMS_ITS | Clinical Summary ---
Author Organization [facility] Address [address] [address] Phone Care Team Providers Care Binder Selector Name Role Phone Jess Ortiz Md Primary Care Provider [phone] Allergies No known active allergies Medications bisoprolol [...] EACH DAY. 90 tablet 3 10/25/2024 Active gabapentin (NEURONTIN) 100 MG capsule 03/17/2025 Active Active Problems Problem Noted Date Diagnosed Date Non-Hodgkin's lymphoma (clinical) 09/18/2024 Malignant neoplasm of prostate 12/25/2022 Overview (12/25/2022): Dr. Ruelas-2009 [place] 6-Brachytherpy and bicalutamide Supraventricular tachycardia 08/04/2022 Hydronephrosis 02/24/2021 Localized edema 02/24/2021 Hypertension 02/24/2021 Stage 3a chronic kidney disease 02/24/2021 Hyperuricemia 02/24/2021 Bradycardia 02/24/2021 Personal history of laryngeal cancer 02/24/2021 Immunizations Immunization Administration Dates Next Due Influenza Split High Dose Preservative Free IM 1 ,06/18/2018 Pneumococcal Conjugate 13-Valent 04/15/2017 Family History Medical History Relation Comments Heart disease Father [place] Diabetes Sibling brother type II Relation Status [...] Sign Reading Time Taken Comments Blood Pressure 122/64 03/18/2025 9:25 AM EDT Pulse 49 03/18/2025 9:25 AM EDT Temperature - - Respiratory Rate - - Oxygen Saturation 97% 03/18/2025 9:25 AM EDT Inhaled Oxygen Concentration - - Weight 55.3 kg (122 lb) 03/18/2025 9:25 AM EDT Height 154.9 cm (5' 1 ) 09/20/2023 10:41 AM EST Body Mass Index 23.05 09/20/2023 10:41 AM EST Plan of Treatment Upcoming Encounters Date Type Department Care Team (Late st Contact Info) Description 09/15/2025 9:40 AM EST Office Visit [facility] [address] [address] Royce Day MD [address] [phone] Health Maintenance Due Date Last Done Comments Influenza Vaccine (#1) 2025 , 06/06/2020, 06/24/2019, Additional history exists Pneumococcal Vaccine: 50+ Years Completed 10/28/2019, 10/25/2019, 04/15/2017 Pneumococcal Vaccine: Peds (0 to 5 Years) and At-Risk Patients (6 to 49 Years) Discontinued 10/28/2019, 10/25/2019, 04/15/2017 Hepatitis B Vaccine Aged Out No longe r eligible based on patient's age to complete this topic Insurance Medicare Medicare [facility] Care Teams Binder Selector Relationship Specialty Start Date End Date Jess Ortiz Md [address] [place] [address] PCP - General 03/18/25
--- OUTSIDE RECORDS SUMMARY | 2025-08-15 16:07 | XMS_ITS | Clinical Summary ---
Author Organization [facility] Prior to 01/25/[address] [place] [address] Care Team Providers Care Supervisor Quality Control Name Role Phone Pedro Burnett MD Primary Care Provider Allergies No known active allergies Medications Medication [...] 0 Active Vitamin D, Ergocalciferol, 50 MCG (2000 UT) CAPS Take 2,000 Units by mouth. [...] 86 11/01/2022 11:02 AM EST Temperature 36.5 C (97.7 F) 07/30/2022 9:45 AM EST Respiratory Rate 14 07/30/2022 9:45 AM EST [...] 1-dose 75+ series) 11/20/2014 Influenza Vaccine (#1) 2025 , 06/21/2019, 05/28/2019, Additional history exists Pneumococcal Vaccine Completed 10/28/2019, 10/25/2019, 04/15/2017 Hepatitis B Vaccines Aged Out No long er eligible based on patient's age to complete this topic RSV Ped < 20 months Aged Out No longe r eligible based on patient's age to complete this topic Medical Devices Implanted Type Area Substance Abuse Services Director Device Identifier Shelf Expiration Date Model / Serial / Lot Sealant Fibrin Vistaseal 4ml [facility] [id number] - [id number] Implanted:Qty : 1 on 07/29/2022 by Gerald Bella MD at [facility] Hemostatic Agent Posterior : Spine Lumbar [facility] [employer] 12/28/2023 [id number] / / [id number] Sponge Surgifoam Gel 12 X 7mm [facility]-Ethi [id number] - [id number] Implanted:Qty : 2 on 07/29/2022 by Gerald Bella MD at [facility] Hemostatic Agent Posterior : Spine Lumbar [facility] [employer] 10/14/2025 1972 / / [id number] Surgiflo Hemostatic Matrix [facility] [id number] - [id number] Implanted:Qty : 1 on 07/29/2022 by Gerald Bella MD at [facility] Hemostatic Agent Posterior : Spine Lumbar [employer] 03/27/2024 2991 / / [id number] Putty Vesuvius 100 5ml Stry-K2m [id number] - [id number] Implanted:Qty : 1 on 07/29/2022 by Gerald Bella MD at [facility] Posterior : Spine Lumbar [employer] 02/25/2024 [id number] 0DP / [id number] / [id number] Putty Bone Graft 1.0ml Peptide Enhanced Cera-Manu [id number] - [id number] Implanted:Qty : 1 on 07/29/2022 by Gerald Bella MD at [facility] Posterior : Spine Lumbar [employer] 12/25/2024 700-010 / / [id number] Shell Short Flarehawk 25mm Fh9 Intg-Manu [id number] - [id number] Implanted:Qty : 1 on 07/29/2022 by Gerald Bella MD at [facility] Posterior : Spine Lumbar [employer] [id number] / / Cage Spinal Flarehawk 6 D L23 Intg-Manu [id number] - [id number] Implanted:Qty : 1 on 07/29/2022 by Gerald Bella MD at [facility] Posterior : Spine Lumbar [employer] [id number] / / Screw Maureen Polyaxial Extended Tab 6.5x45mm Stry-K2m [id number] 16333 - [id number] Implanted:Qty : 2 on 07/29/2022 by Gerald Bella MD at [facility] Posterior : Spine Lumbar [employer] [id number] / / Screw Set [place] Stry-K2m [id number] - [id number] Implanted:Qty : 4 on 07/29/2022 by Gerald Bella MD at [facility] Posterior : Spine Lumbar [employer] [id number] 1 / / Maureen Fenest Polyaxial Extended Tab 6.5x40mm Stry-K2m [id number] [id number] - [id number] Implanted:Qty : 2 on 07/29/2022 by Gerald Bella MD at [facility] Posterior : Spine Lumbar [employer] [id number] / / Honorio Contr Blt Hex 5.5x35mm Stry-K2m [id number] 8133 - [id number] Implanted:Qty : 2 on 07/29/2022 by Gerald Bella MD at [facility] Posterior : Spine Lumbar [employer] [id number] 5 / / Explanted Type Area Substance Abuse Services Director Device Identifier Shelf Expiration Date Model / Serial / Lot Pin Pax Sd [id number] 30thrd Stry-Howm [id number] - [id number] Explanted:Qty: 2 on 07/29/2022 by Gerald Bella MD at [facility] Right Posterior: Iliac Crest [employer] 5023-3-120 / / Advance Directives For more information, please contact: [phone] Latest Code Status on File Code Status Date Activated Date Inactivated Comments Full Code 07/29/2022 1:28 PM 07/30/2022 10:45 PM This code status was ascertained in the following way: discussion with patient . Care Teams Supervisor Quality Control Relationship Specialty Start Date End Date Pedro Burnett MD [address] [place] [address] PCP - General Family Medicine 11/22/19
== END 2025-08-15 14:46 | disposition home or self-care (01) ==
LOC: HO.MRI 14:45
PROVIDERS: PCP Internal Medicine; Visit Provider Internal Medicine
DX: C85.80 Other specified types of non-Hodgkin lymphoma, unspecified site (principal)
CPT/HCPCS: 74183; A9585

== ENCOUNTER → 2025-08-15 14:45 | Outpatient (BNV) | payer MEDICARE, OTHER, SELFPAY | PROVIDERS: PCP Internal Medicine; Visit Provider Radiology Diagnostic Radiology | DX: R59.0 Localized enlarged lymph nodes (principal); K86.2 Cyst of pancreas | CPT/HCPCS: 74183 ==